=== PATIENT | female | born 1950 | race Caucasian/White ===

== ENCOUNTER 2016-11-14 05:32 | Inpatient (IN) | payer OTHER ==
[2016-10-17 11:10] VITALS: BMI 39.0
--- NOTE | 2016-10-17 11:38 | PAT Medication Instructions ---
Service Date Oct 17, 2016. Current Home Medication List Alendronate/Cholecalciferol (Fosamax+D 70MG/2800 Iu), 1 TABLET PO SATURDAY Amlodipine (Norvasc), 10 MG PO QPM Aspirin (Aspirin Ec), 81 MG PO HS Biotin (Biotin Maximum Strength), 1 TAB PO QAM Calcium/Vitamin D (Os-Jameson 500 Plus D), 1 TAB PO QAM Cholecalciferol (Vitamin D3), 1 TAB PO QAM Cyanocobalamin (Vitamin B-12 1000 Mcg), 1,000 MCG PO QAM Cyclobenzaprine Hcl (Flexeril), 5 MG PO HS Fish Oil ([place]-3), 1 CAP PO BID Ysxmjiavgab-Hldddbxuhqx-Bth C- (Glucosamine Chondroitin), 1 TAB PO BID Hydrocodone-Acetaminophen (Lortab 5-325 mg), 1 TAB PO Q6H PRN for Pain Metformin Hcl (Glucophage), 500 MG PO DNNER Multivitamin (Multivitamin), 1 TAB PO QAM Omeprazole (Prilosec), 40 MG PO QAM Pseudoephedrine Hcl (Suphedrine), 1 TAB PO Q6H PRN for Nasal Congestion Ranitidine (Zantac), 300 MG PO HS Medication Instructions For Your Scheduled Surgery Alendronate/Cholecalciferol (Fosamax+D 70MG/2800 Iu), 1 TABLET PO SATURDAY ( continue as usual) - Hold the following medications 10 days prior to surgery: Fish Oil ([place]-3), 1 CAP PO BID Kjqmhjmptjr-Qxmxflbewgs-Uhj C- (Glucosamine Chondroitin), 1 TAB PO BID Biotin (Biotin Maximum Strength), 1 TAB PO QAM - Hold the following medications 48 hours prior to surgery: Metformin Hcl (Glucophage), 500 MG PO DNNER - Hold the following medications the morning of surgery: Pseudoephedrine Hcl (Suphedrine), 1 TAB PO Q6H PRN for Nasal Congestion Multivitamin (Multivitamin), 1 TAB PO QAM Calcium/Vitamin D (Os-[place] 500 Plus D), 1 TAB PO QAM Cholecalciferol (Vitamin D3), 1 TAB PO QAM Cyanocobalamin (Vitamin B-12 1000 Mcg), 1,000 MCG PO QAM - Take the following medications the morning of surgery with a sip of water: Omeprazole (Prilosec), 40 MG PO QAM Hydrocodone-Acetaminophen (Lortab 5-325 mg), 1 TAB PO Q6H PRN for Pain (can take up to four hours prior to surgery if needed) - Take the following medications as scheduled the night before surgery: Ranitidine (Zantac), 300 MG PO HS Hydrocodone-Acetaminophen (Lortab 5-325 mg), 1 TAB PO Q6H PRN for Pain Cyclobenzaprine Hcl (Flexeril), 5 MG PO HS Amlodipine (Norvasc), 10 MG PO QPM Aspirin (Aspirin Ec), 81 MG PO HS If you have any questions please call us at [phone] or [phone] ( [place]amini) or [phone]
[2016-10-17 12:51] LABS: BASO % 0.6 %; BASO ABS # 0.03 K/uL (0-0.2); COMPLETE YES; EOS % 2.5 %; HEMATOCRIT 43.7 % (37-47); IG% 0.2 %; LYMPH % 28.2 %; LYMPH ABS # 1.47 K/uL (1.2-3.4); MEAN CELL VOLUME 93.6 fL (80-100); MEAN CORPUSCULAR HEMOGLOBIN 33.2 pg (25-34); MEAN CORPUSCULAR HGB CONC 35.5 g/dl (32-36); MEAN PLATELET VOLUME 11.2 fL (7.4-10.4); NEUT % 62.5 %; PLATELET COUNT 207 K/uL (130-400); RED BLOOD COUNT 4.67 M/uL (4.2-5.4); WHITE BLOOD COUNT 5.21 K/uL (4.8-10.8)
[2016-10-17 13:09] LABS: URINE APPEARANCE CLOUDY (CLEAR); URINE BILIRUBIN NEG (NEG); URINE COLOR YELLOW; URINE EPITHELIAL CELL AUTO >30 /lpf (0-5); URINE NITRITE POS (NEG); URINE PH 6.5 (4.5-7.5); URINE SPECIFIC GRAVITY 1.024 (1.000-1.030); UROBILINOGEN NEG (NEG)
[2016-10-17 13:12] LABS: BUN/CREATININE RATIO 20.5 (10-20); CALCIUM 9.3 mg/dl (8.5-10.1); CREATININE 0.85 mg/dl (0.60-1.20); POTASSIUM 3.8 mmol/L (3.5-5.1)
[2016-10-17 13:19] LABS: MANUAL MICROSCOPIC REQUIRED? NO; REVIEW REQ? NO
--- NOTE | 2016-11-13 12:34 | HISTORY & PHYSICAL EXAMINATION ---
DATE OF ADMISSION: 11/14/2016 HISTORY OF PRESENT ILLNESS: She presents to our office with complaint of back and left leg pain. It involves the buttock and anterior groin as well as anterior thigh. It does reproduce with walking and standing. She has an occasional right leg pain as well. She has had prior lumbar decompression and fusion several years ago by Dr. Romo. PAST MEDICAL HISTORY: The patient's medical history is significant for hypertension, diabetes, arthritis, GERD, hiatal hernia, and obesity. PAST SURGICAL HISTORY: Significant for cataract, trigger finger release, carpal tunnel release, back surgery in 2008, and partial knee replacement in 2004. ALLERGIES: INCLUDE AMOXICILLIN, PENICILLIN, LISINOPRIL, AND ZITHROMAX. MEDICATIONS: Currently include omeprazole 40 mg a day, metformin 500 mg twice a day, calcium, vitamin D, vitamin B12, Biotin, ranitidine, fish oil, and amlodipine, unknown dosage. SOCIAL HISTORY: She is . Alcohol and tobacco not listed. REVIEW OF SYSTEMS: Significant for back and left leg pain, fatigue, easy bruising, heartburn, and itchy skin. PHYSICAL EXAMINATION: VITAL SIGNS: 5 feet 4 inches, 209 pounds. HEENT: Speech appropriate. CARDIOPULMONARY: No gross abnormalities. ABDOMEN: Soft and nondistended. GENITOURINARY: Deferred. NEUROLOGIC: Cranial nerves II through XII grossly intact. MUSCULOSKELETAL: She ambulates around the room, but does have significant discomfort with prolonged standing. No strength deficits. ASSESSMENT: Lumbar stenosis, adjacent level. PLAN: At this point in time, we have discussed surgical intervention. Due to her severe stenosis of L1-L2 and L2-L3, it would require removal of instrumentation at L3 through S1, extending the fusion into the lower thoracic area and possible iliac bolts. Risks, benefits, pros and alternatives were outlined in detail. She elected to proceed with the above-mentioned surgical intervention.
[2016-11-14] VITALS (12 sets, daily range): BP systolic 97–147; BP diastolic 62–105; PULSE 66–93; TEMP 36.4–36.9; O2SAT 93–99; Ht 152.4 cm; Wt 93.6 kg
[~2016-11-14] VITALS: Ht 152.4 cm; Wt 93.6 kg
[~2016-11-14 05:32] MED LIST: AMLO-114 PO; ASPI81TA28 PO; BIOT1TAB7 PO; CALC500C70 PO; CHOL1000 PO; CYAN10004 PO; CYCL5TAB PO; FSMD/70 PO; GLC/500 PO; GLUCTAB7 PO; HYDR-4330 PO; MULT-506 PO; OMEG10007 PO; OMEP40CA PO; PSEU-170 PO; RANI300T2 PO
[2016-11-14] MEDS ORDERED: LACTATED RINGER'S 1000ML IV SCH (06:00)
[2016-11-14] MEDS ORDERED: SCOPOLAMINE 1.5 MG TDSY TD SCH (06:00)
[2016-11-14] MEDS ORDERED: CEFAZOLIN 2000 MG/60 ML D5W 60 ML IV SCH (06:00)
[2016-11-14] MEDS ORDERED: SODIUM CHLORIDE 0.9% PF 50 ML VIAL ONE (06:56)
[2016-11-14] MEDS ORDERED: FENTANYL CITRATE INJ 50 MCG/1 ML 2 ML VIAL ONE (06:56)
[2016-11-14] MEDS ORDERED: BACITRACIN 50000 UNIT VIAL ONE (06:56)
[2016-11-14] MEDS ORDERED: MIDAZOLAM HCL 1 MG/ML 2ML VIAL ONE (06:56)
[2016-11-14] MEDS ORDERED: BUPIVACAINE/EPINEPHRINE 0.5% MPF 1:200,000 30 ML VIAL ONE (06:56)
[2016-11-14] MEDS ORDERED: KETAMINE HCL INJ 50 MG/ML 10 ML VIAL ONE (06:56)
[2016-11-14] MEDS ORDERED: LIDOCAINE HCL 2% 2 ML VIAL (20MG/ML) ONE ×2 (06:57→08:32)
[2016-11-14] MEDS ORDERED: THROMBIN FOR SOLN 20000 UNIT KIT ONE (07:17)
--- NOTE | 2016-11-14 07:25 | History & Physical Bridge Note ---
H&P Re-Evaluation Bridge Note: I have examined the patient, reviewed the History & Physical and in the interval since the performance of the History & Physical I have noted the following changes of clinical significance: No changes noted
[2016-11-14] MEDS ORDERED: LACTATED RINGER'S 1000ML 1,000 ML IV PRN (07:29)
[2016-11-14] MEDS ORDERED: FENTANYL CITRATE INJ 50 MCG/1 ML 2 ML VIAL IV PRN (07:30)
[2016-11-14] MEDS ORDERED: HYDROmorphone INJ 1 MG/ML SYR IV PRN (07:30)
[2016-11-14] MEDS ORDERED: ONDANSETRON INJ 2 MG/ML 2 ML VIAL IV PRN ×2 (07:30→10:30)
--- NOTE | 2016-11-14 07:32 | History & Physical Bridge Note ---
H&P Re-Evaluation Bridge Note: I have examined the patient, reviewed the History & Physical and in the interval since the performance of the History & Physical I have noted the following changes of clinical significance: No changes noted T11-L3 decompression fusion, removal inst. L3-S1
[2016-11-14] MEDS ORDERED: CLINDAMYCIN 600 MG/54 ML D5W IV ONE (07:33)
[2016-11-14] MEDS ORDERED: NURSING VERBAL MED ORDER ONE (07:35)
[2016-11-14] MEDS ORDERED: HYDROmorphone INJ 2 MG/ML SYR/VIAL ONE (08:01)
[2016-11-14] MEDS ORDERED: ACETAMINOPHEN 1000 MG/100 ML IV IV ONE (08:21)
[2016-11-14] MEDS ORDERED: PHENYLEPHRINE HCL INJ 10 MG/ML VIAL ONE (08:32)
[2016-11-14] MEDS ORDERED: NEOSTIGMINE METHYLSULFATE 1 MG/ML 10ML VIAL ONE (08:32)
[2016-11-14] MEDS ORDERED: ROCURONIUM BROMIDE 10 MG/ML 5 ML VIAL ONE (08:32)
[2016-11-14] MEDS ORDERED: DEXAMETHASONE SOD INJ 4 MG/ML VIAL ONE (08:32)
[2016-11-14] MEDS ORDERED: ONDANSETRON INJ 2 MG/ML 2 ML VIAL ONE (08:32)
[2016-11-14] MEDS ORDERED: PROPOFOL IV EMULSION 10 MG/ML 20 ML VIAL IV ONE (08:32)
[2016-11-14] MEDS ORDERED: GLYCOPYRROLATE INJ 0.2 MG/ML VIAL ONE (08:32)
[2016-11-14] MEDS ORDERED: ALBUMIN HUMAN 5% 12.5 GM/250 ML VIAL IV ONE ×2 (09:26→10:21)
[2016-11-14] MEDS ORDERED: SODIUM CHLORIDE 0.9% 1000ML 1,000 ML IV SCH (10:29)
--- NOTE | 2016-11-14 10:29 | [facility] Post Operative Brief Note ---
Immediate Operative Summary Operative Date Nov 14, 2016. Pre-Operative Diagnosis Lumbar stenosis, adjacent level Post-Operative Diagnosis Lumbar stenosis, adjacent level Procedure(s) Performed T11-L3 Lumbar Laminectomy, Decompression, Pedicle Screw Fixation, Placement of Interbody Device, T11-L3 Posterolateral Fusion, Application of Autograft versus Allograft, Bone Morphogenetic Protein, Iliac [place] Fixation, L3-S1 Hardware Surgeon Dr. Viktor Romo Supervisor Gear Repair Surgeon(s) Tiesah Mejia PA-C Estimated Blood Loss 500mL Findings stenosis Specimens Specimen A. Explanted lumbar hardware
[2016-11-14] MEDS ORDERED: ACETAMINOPHEN 500 MG TAB PO PRN (10:30)
[2016-11-14] MEDS ORDERED: BISACODYL 10 MG SUPP PR PRN (10:30)
[2016-11-14] MEDS ORDERED: ACETAMINOPHEN IV 100 ML IV PRN (10:30)
[2016-11-14] MEDS ORDERED: SOD PHOSPHATE/SOD BIPHOSPHATE ENEMA 132 ML BTL PR PRN (10:30)
[2016-11-14] MEDS ORDERED: NALOXONE HCL 0.4 MG/1 ML VIAL/CARP IV PRN ×2 (10:30)
[2016-11-14] MEDS ORDERED: hydrOXYzine HCL 25 MG TAB PO PRN (10:30)
[2016-11-14] MEDS ORDERED: LORAZEPAM INJ 0.5 MG in SYRINGE 0.75 ML IV PRN (10:30)
[2016-11-14] MEDS ORDERED: FAMOTIDINE 20 MG TAB PO PRN (10:30)
[2016-11-14] MEDS ORDERED: FLOSEAL HEMOSTATIC MATRIX 10ML TOP ONE (10:30)
[2016-11-14] MEDS ORDERED: DO NOT ADMINISTER PNEUMOCOCCAL VACCINE PRN ×2 (10:30)
[2016-11-14] MEDS ORDERED: MAGNESIUM HYDROXIDE SUSP 30 ML UDC PO PRN (10:30)
[2016-11-14] MEDS ORDERED: PROMETHAZINE HCL INJ 12.5 MG in SODIUM CHLORIDE 0.9% 50ML 50 ML IV PRN (10:30)
[2016-11-14] MEDS ORDERED: DO NOT ADMINISTER FLU VACCINE PRN ×3 (10:30)
[2016-11-14] MEDS ORDERED: HYDROmorphone HCL 0.5MG/ML 50 ML CASSETTE IV PRN (10:30)
[2016-11-14] MEDS ORDERED: LORAZEPAM 0.5 MG TAB PO PRN (10:30)
[2016-11-14] MEDS ORDERED: PSEUDOEPHEDRINE HCL 30 MG TAB PO PRN (10:30)
[2016-11-14] MEDS ORDERED: METOCLOPRAMIDE HCL INJ 5 MG/ML 2 ML VIAL IV PRN (10:30)
[2016-11-14] MEDS ORDERED: ALUMINUM/MAGNESIUM SUSP 30 ML UDC PO PRN (10:30)
--- NOTE | 2016-11-14 10:51 | DIAGNOSTIC IMAGING REPORT ---
LUMBAR SPINE, INTRAOPERATIVE FLUOROSCOPY HISTORY: T11-S1 decompression fusion. FLUOROSCOPY TIME: 28 seconds. FINDINGS: Intraoperative fluoroscopy was provided for the lumbar spine. 6 fluoroscopic spot images were obtained. T11-S1 posterior decompression fusion with pedicle screws and rods. There are bilateral sacroiliac bolts. The hardware appears intact. IMPRESSION: Fluoroscopy provided for a T11-S1 posterior decompression and fusion. Electronically signed by: Kit Martin M.D. 11/14/2016 10:49 AM Dictated Date/Time: 11/14/2016 10:48 AM
[2016-11-14] MEDS ORDERED: HYDROmorphone HCL 0.5MG/ML 50 ML CASSETTE ONE (10:55)
[2016-11-14] MEDS ORDERED: PHARMACY GLYCEMIC MGMT CONSULT PRN (11:07)
--- NOTE | 2016-11-14 11:42 | Anesthesiology Progress Note ---
Anesthesia Post Op Note Date & Time Nov 14, 2016 at 11:42 Vital Signs Pain Intensity: 2 Vital Signs Past 12 Hours Date Time Temp Pulse Resp B/P Pulse Ox O2 Delivery O2 Flow Rate FiO2 11/14/16 11:28 36.8 101/56 11/14/16 11:25 65 16 11/14/16 11:25 65 16 99 11/14/16 11:24 99/61 11/14/16 11:20 64 11/14/16 11:20 65 16 119/62 100 11/14/16 11:20 Nasal Cannula 4 11/14/16 11:19 105/56 11/14/16 11:15 62 11/14/16 11:15 62 120/61 100 11/14/16 11:13 116/68 11/14/16 11:10 71 12 131/69 100 11/14/16 11:10 71 12 11/14/16 11:09 105/81 11/14/16 11:05 76 7 11/14/16 11:05 76 7 132/73 100 11/14/16 11:04 126/74 11/14/16 11:00 86 13 143/74 98 11/14/16 11:00 87 13 11/14/16 10:58 136/92 11/14/16 10:55 93 152/80 100 11/14/16 10:55 36.4 88 16 136/92 99 Mask 10 146/86 11/14/16 05:50 36.8 93 20 147/105 95 Room Air 132/69 Notes Mental Status: alert / awake / arousable, participated in evaluation Pt Amnestic to Procedure: Yes Nausea / Vomiting: adequately controlled Pain: adequately controlled Airway Patency, RR, SpO2: stable & adequate BP & HR: stable & adequate Hydration State: stable & adequate Anesthetic Complications: no major complications apparent Pt doing well.
--- NOTE | 2016-11-14 11:46 | OPERATIVE REPORT ---
DATE OF OPERATION: 11/14/2016 PREOPERATIVE DIAGNOSIS: Spinal stenosis L1-L2, L2-L3: POSTOPERATIVE DIAGNOSIS: Same. PROCEDURE PERFORMED: 1. Removal of instrumentation L3-L4, L4-L5, L5-S1. 2. Exploration of fusion L3-S1. 3. Lumbar decompression, medial facetectomies, foraminotomies L1-L2, L2-L3. 4. Posterior spinal fusion T10-S1. 5. Bilateral SI joint fusions. 6. Placement of posterior segmental instrumentation using Medicrea rods and screws T10-S1 including bilateral iliac bolts. 7. Placement of Infuse collagen sponge combined with Mastergraft in the posterolateral gutters and SI joints. 8. Placement of locally harvested morcellized autograft in posterior gutters. SURGEON: Dr. Viktor Romo. CHRISTMAS TREE CONTRACTOR: Due to the complex nature of the procedure, the entire surgery was performed with the assistant professor of nursing of JENNIFER Soliman. The export sales assistant, under direct supervision, was involved in the actual performance of all aspects of the surgical procedure including hemostasis, tissue retraction and incision, instrument management, patient positioning, and wound closure. ANESTHESIA: General. DISPOSITION: The patient awakened and taken to PACU in stable condition. HISTORY OF PATIENT'S PROBLEMS: This is a 66-year-old female who is well known to me that presents with above-mentioned diagnosis after failing an extensive course of nonoperative care, elected to undergo the above-mentioned procedure. Risks, benefits, pros, cons, and alternatives were outlined in detail preoperatively. PROCEDURE: The patient was met with preoperatively, the case discussed and all questions were addressed. At that point the patient was taken back to the operative suite and after undergoing successful general intubation by the department of anesthesia was placed in prone position on Sha table atop Adrian frame. All bony prominences were well padded and the eyes were inspected to ensure there was no external pressure placed upon them. At this point, the thoracolumbar spine was prepped and draped in normal sterile fashion. Sharp dissection with the assistance of Bovie cautery was performed down to and exposing the lamina and transverse processes of T10, T11, T12, L1, L2 and instrumentation at the L3, L4, L5 and S1 levels bilaterally. I then proceeded to remove the hardware bilaterally at L3, L4, L5 and S1 exploring the fusion mass noting it to be intact. We then performed a complete laminectomy of L2 and L1 in a caudal to cephalad fashion addressing severe lateral recess and foraminal stenosis. After this was complete, pedicle screws were then placed in T11, T12, L1, L2, L3, L4, S1, as well as bilateral iliac bolts. Appropriate size rods were then cut, contoured and locked into position bilaterally. After this was complete, the bilateral SI joints were burred to subcortical bleeding bone as well as the lamina and transverse processes of T10, T11, T12, L1, L2, L3 and L4. Infused collagen sponge combined with Mastergraft and locally harvested morcellized autograft was placed in the posterolateral gutters and bilateral SI joints. A 7 flat PIERCE drain was inserted. Incision was closed with 1-0 Vicryl in the fascia, 2-0 Vicryl subcutaneously, 4-0 Monocryl for final skin closure. Steri-Strips and sterile dressing placed. The patient was awakened and taken to PACU in stable condition. I attest to the content of the Intraoperative Record and any orders documented therein. Any exceptio ns are noted below.
[2016-11-14] MEDS ORDERED: GLUCOSE 10 TABS/TUBE PO PRN (12:15)
[2016-11-14] MEDS ORDERED: GLUCOSE 40% GEL 15 GM TUBE PO PRN (12:15)
[2016-11-14] MEDS ORDERED: DEXTROSE 50% 50 ML SYR IV PRN (12:15)
[2016-11-14] MEDS ORDERED: GLUCAGON FOR INJ 1 MG VIAL SQ PRN (12:15)
--- NOTE | 2016-11-14 12:33 | Pharmacy Progress Note ---
Glycemic Control Intl Consult Date of Service Nov 14, 2016. Scope Glycemic Pharmacist consulted by Dr Romo on 11/14/16 for glycemic control and to write orders per [facility] inpatient glycemic control protocol Objective Weight (Kilograms): 93.60 Accuchecks BSG (last 24hrs): Test 11/14/16 06:16 11/14/16 11:05 Bedside Glucose 140 mg/dl (70-90) 171 mg/dl (70-90) HbA1c no recent A1c Recent Pertinent Medications Outpatient Anti-diabetic Regimen: * Metformin 500mg PO daily with Dinner Risk Factors for Insulin Resistance: * Steroids * Recent Surgery * Diet Assessment & Plan ASSESSMENT: * 66yo T2DM female with unknown outpatient control of diabetes, no recent A1c reported. Will order per protocol * Pt is maintained on oral antidiabetic agents as an outpatient * Oral agents are not recommended for inpatient use d/t difficultly titrating in acute situations, drug interactions, & changing PO intake/status * ADA recommends re-initiating outpatient oral agents 1-2 days prior to discharge if/when appropriate if they were held on admission. * Recommended regimen for inpatient use is SQ Basal Bolus insulin regimen with Lantus + NovoLog * Weight based SQ basal bolus insulin dosing per [facility] calculator will be used while oral antidiabetic agents on hold. Will titrate parameters based on BSG trends * Patient received dexamethasone intra-operatively and will receive 3 doses post -operatively. * Steroids have their most profound effect on post-prandial hyperglycemia which is best controlled with NovoLog dosing per aggressive CF/CR. However, basal insulin with Lantus is sometimes warranted for RTC steroid dosing. * ADA & AACE recommend a goal blood sugar range 140-180 mg/dl for the majority of critically ill & non-critically ill patients. However, more stringent targets may be selected in individual cases. Will utilize more stringent goal of 110-140mg/dl based on patient age & comorbidities. Additionally, tighter glycemic control is warranted to facilitate wound/infection healing post- operatively. PLAN FOR INPATIENT GLYCEMIC CONTROL: * Hold outpatient oral diabetes medications * Will try to re-initiate 1-2 days prior to discharge once renal function assessed and PO intake adequate * HbA1c with AM labs * Basal insulin with LANTUS for persistent hyperglycemia * If BSG 120mg/dl or below --> do not give Lantus * If BSG 121-179mg/dl --> Give Lantus 10 units * If BSG 180mg/dl or above --> Give Lantus 15 units * Correctional Insulin with NOVOLOG per scale ACHS or Q6hrs while NPO * Goal Range: Low 110 mg/dL - High 140 mg/dL * Correction Factor: 25 mg/dL/unit * Nutritional / Prandial insulin per carb ratio of 1 unit per 8 grams CHO consumed * Please note that the plan above was derived based on current level of insulin resistance and hospital stress. These recommendations are appropriate for inpatient admission only. Plan of care upon discharge will need to be reassessed to avoid potential outpatient hypo/hyperglycemia. Thank you.
[2016-11-14] MEDS: INSULIN ASPART 100 UNITS/ML 3 ML PEN SC SCH ×3 (13:40→21:37)
[2016-11-14] MEDS: LACTATED RINGER'S 1000ML 1,000 ML IV SCH ×2 (13:43→18:25)
[2016-11-14] MEDS: CHECK SCOPOLAMINE PATCH PLACEMENT SCH (16:01)
[2016-11-14] MEDS: DEXAMETHASONE INJ 6 MG in SYRINGE 0 ML IV SCH (16:02)
[2016-11-14] MEDS: CLINDAMYCIN IV 600 MG in DEXTROSE 5% ADD-VANTAGE 50ML 50 ML IV SCH (16:02)
[2016-11-14] MEDS ORDERED: INSULIN GLARGINE SOLOSTAR 100 UNITS/ML 3 ML PEN SC SCH (16:45)
[2016-11-14] MEDS: ASPIRIN 81 MG ECTAB PO SCH (21:27)
[2016-11-14] MEDS: RANITIDINE HCL 150 MG TAB PO SCH (21:30)
[2016-11-14] MEDS: DOCUSATE SODIUM/SENNA 50/8.6MG TAB PO SCH (21:30)
[2016-11-14] MEDS: CYCLOBENZAPRINE HCL 5 MG TAB PO SCH (21:31)
[2016-11-14] MEDS: AMLODIPINE BESYLATE 5 MG TAB PO SCH (21:58)
[2016-11-15] VITALS (9 sets, daily range): BP systolic 104–134; BP diastolic 68–81; PULSE 70–79; TEMP 36.7–37.1; O2SAT 86–94
[2016-11-15] MEDS: CLINDAMYCIN IV 600 MG in DEXTROSE 5% ADD-VANTAGE 50ML 50 ML IV SCH (00:19)
[2016-11-15] MEDS: DEXAMETHASONE INJ 6 MG in SYRINGE 0 ML IV SCH ×2 (00:19→07:54)
[2016-11-15] MEDS: CHECK SCOPOLAMINE PATCH PLACEMENT SCH ×3 (00:20→17:02)
[2016-11-15] MEDS: LACTATED RINGER'S 1000ML 1,000 ML IV SCH (00:20)
[2016-11-15] MEDS ORDERED: HYDROmorphone INJ 1 MG/ML SYR IV PRN (06:00)
[2016-11-15] MEDS ORDERED: DC PCA SCH (06:00)
[2016-11-15] MEDS ORDERED: HYDROmorphone INJ 0.5 MG/0.5 ML SYR IV PRN (06:00)
[2016-11-15] MEDS ORDERED: NURSING VERBAL MED ORDER ONE (06:30)
[2016-11-15 07:08] LABS: COMPLETE YES; HEMATOCRIT 30.9 % (37-47); IG% 0.3 %; LYMPH % 7.1 %; LYMPH ABS # 0.67 K/uL (1.2-3.4); MEAN CELL VOLUME 93.4 fL (80-100); MEAN CORPUSCULAR HEMOGLOBIN 32.9 pg (25-34); MEAN CORPUSCULAR HGB CONC 35.3 g/dl (32-36); MEAN PLATELET VOLUME 10.4 fL (7.4-10.4); MONO % 2.5 %; NEUT % 90.1 %; PLATELET COUNT 175 K/uL (130-400); RED BLOOD COUNT 3.31 M/uL (4.2-5.4); WHITE BLOOD COUNT 9.49 K/uL (4.8-10.8)
[2016-11-15 07:39] LABS: CALCIUM 8.4 mg/dl (8.5-10.1); CREATININE 0.75 mg/dl (0.60-1.20); POTASSIUM 4.2 mmol/L (3.5-5.1)
[2016-11-15] MEDS ORDERED: INSULIN GLARGINE SOLOSTAR 100 UNITS/ML 3 ML PEN SC SCH (09:00)
[2016-11-15] MEDS: PANTOprazole SOD 40 MG TAB PO SCH (09:58)
[2016-11-15 10:01] LABS: ESTIMATED AVERAGE GLUCOSE 131 mg/dl; HA1C FLAG Normal (Normal)
[2016-11-15] MEDS: INSULIN ASPART 100 UNITS/ML 3 ML PEN SC SCH ×4 (10:04→20:47)
[2016-11-15] MEDS: OXYCODONE HCL IR 5 MG TAB (IMMEDIATE RELEASE) PO PRN ×4 (10:06→20:56)
[2016-11-15] MEDS ORDERED: RXC5 PO (10:56)
--- NOTE | 2016-11-15 10:57 | Discharge Instructions ---
Discharge Instructions Admission Reason for Admission: Spinal Stenosis Discharge Discharge Diagnosis / Problem: stenosis Discharge Goals Goal(s): Improve function Activity Recommendations Activity Limitations: per Instructions/Follow-up section . Instructions / Follow-Up Instructions / Follow-Up ACTIVITY RECOMMENDATIONS: SELF CARE INSTRUCTIONS AFTER THORACIC/LUMBAR FUSIONS 1. You may walk to your tolerance. It is good exercise for your legs and back. Expect some back and intermittent leg aches and pains. 2. You may perform "counter-top" level activities (make a sandwich, yesica with a project, etc.). 3. No bending or lifting of more than 10 pounds or back twisting of any nature (roll like a log when turning in bed). 4. You may ride in a car for 20-30 minutes at a time. No driving until after your first visit with your doctor. 5. Frequent changes of position and restricting sitting to 30 minutes at a time will help limit the amount of back spasms and stiffness you may experience. 6. You may discontinue the use of ambulatory aids (cane, crutches, etc.) once your strength and confidence allow. 7. You may bookbinder chief the shower and let water strike your incision when you arrive home at least once daily. Do not take a tub bath, sit in a hot tub or go into a swimming pool until after your first recheck in the office. SPECIAL CARE INSTRUCTIONS: VERY IMPORTANT TO READ AND REVIEW A. Your surgical incision has been closed with a cosmetic suture under the skin that will dissolve in about 6 weeks. In 14 days, you can use a pair of clean scissors and cut the suture that is left outside of the skin at the ends of your incision. 1. The small skin tapes can be removed 7 days after surgery if they have not fallen off by that point. 2. You may keep the wound open to air as much as possible to promote healing after post-op day number 5 unless told otherwise by your doctor. 3. If you think the wound looks like it is becoming infected (redness or worsening drainage) and/or you are experiencing fever, chill or worsening back pain and muscle spasms, contact the office so that we may evaluate you as soon as possible. B. Complications are uncommon, but please contact us if you have any signs or symptoms of: 1. wound infection (fever higher than 102.5 degrees F, redness, separation of wound, drainage, or increasing pain from the incision) 2. blood clots in legs (pain, swelling, redness and warmth in legs) 3. urinary tract infection (fever higher than 102.5 degrees F, burning upon urination or increased frequency of urination) 4. nerve problems (inability to walk on your toes or heels, numbness, loss of bowel or bladder control) 5. any other symptoms that concern you C. Please call the office at if you have any concerns or questions about your operation or recovery. D. No smoking! Smoking drastically decreases the chance of a solid fusion. E. Do not take any anti-inflammatory medications (Indocin, Advil, Motrin, Aspirin, Naprosyn, etc.) as these may inhibit the chance of a solid fusion. Tylenol is okay to take for pain. MANAGING PAIN AFTER SPINAL SURGERY 1. Narcotic medication is intended for short-term use and will be provided for surgical pain. Surgical pain usually lasts for a period of 4-6 weeks. Narcotic medication includes Percocet, Vicodin, Darvocet, Tylenol #3 or Lortab. 2. Longer-term pain is more appropriately treated with non-narcotic medication such as Tylenol ES. 3. Muscle spasm is not appropriately treated with narcotics. Muscle relaxers such as Soma, Flexeril or Skelaxin can be used along with Tylenol ES. 4. Remember that we all live with some "aches and pains". This is not unusual or uncommon after an injury or as we get older. a. Back pain is expected and may include muscle spasms for 4 to 6 weeks after surgery. The pain should gradually improve. If the pain worsens for no apparent reason, please contact the office. b. Intermittent leg pain may also be experienced and should not be concerned about unless it worsens for no apparent reason. If so, please contact the office. 5. We will provide appropriate medication within the normal guidelines of their prescribed use. We will also be very cautious and aware of potential abuse and extended duration of patients' medication needs. a. Pain medications are for your comfort and to assist with sleep and rest so that the tissue can heal. They are not provided in order to return to normal activity and should not be used through the day. To do so or worsening pain at night can result from ongoing tissue damage and development of tolerance to the prescribed medicine. 6. Please allow 2-3 days to process refills. Prescriptions will not be mailed but must be picked up at the office. FOLLOW UP VISIT: Keep your scheduled follow-up appointment. Any questions, please call the office at . Current Hospital Diet Patient's current hospital diet: Diabetes Type 2 Diet Discharge Diet Recommended Diet: Regular Diet Procedures Procedures Performed: T11-L3 Lumbar Laminectomy, Decompression, Pedicle Screw Fixation, Placement of Interbody Device, T11-L3 Posterolateral Fusion, Application of Autograft versus Allograft, Bone Morphogenetic Protein, Iliac [place] Fixation, L3-S1 Hardware Pending Studies Studies pending at discharge: no Laboratory Results Hemoglobin A1c Test 11/15/16 06:40 Range/Units Estimated Average Glucose 131 mg/dl Hemoglobin A1c 6.2 H 4.5-5.6 % Medical Emergencies . Who to Call and When: Medical Emergencies: If at any time you feel your situation is an emergency, please call 911 immediately. . Non-Emergent Contact Non-Emergency issues call your: Primary Care Provider . "Provider Documentation" section prepared by Viktor Romo. VTE Core Measure Inpt VTE Proph given/why not?: Jessi Loredo, [facility]
--- NOTE | 2016-11-15 10:59 | PROGRESS NOTE ---
DATE: 11/15/2016 SUBJECTIVE: Postop day 1. Back pain controlled. Leg pain improved. Vital signs stable. T max 37.1. PIERCE drained 115 mL. Hematocrit this a.m. is 30.9. OBJECTIVE: On exam, the patient is in chair at bedside. Has good strength to testing. Appears comfortable. ASSESSMENT: Status post lumbar decompression and fusion. PLAN: At this time, continue physical therapy and monitor PIERCE output, anticipate home this weekend.
--- NOTE | 2016-11-15 12:44 | Pharmacy Progress Note ---
Glycemic Control: Progress Nt Date of Service Nov 15, 2016. Scope Glycemic Pharmacist consulted for glycemic control and to write orders per [facility] inpatient glycemic control protocol. Objective Accuchecks BSG (last 24hrs): Test 11/14/16 17:04 11/14/16 20:48 11/15/16 06:40 11/15/16 08:17 Bedside Glucose 199 mg/dl (70-90) 182 mg/dl (70-90) 170 mg/dl (70-90) Random Glucose 172 mg/dl (70-99) Laboratory Data (last 24hrs) Test 11/15/16 06:40 Anion Gap 11.0 mmol/L BUN/Creatinine Ratio 16.0 Blood Urea Nitrogen 12 mg/dl Creatinine 0.75 mg/dl Hemoglobin A1c 6.2 % Potassium Level 4.2 mmol/L Sodium Level 141 mmol/L White Blood Count 9.49 K/uL Red Blood Count 3.31 M/uL Hemoglobin 10.9 g/dL Hematocrit 30.9 % Mean Corpuscular Volume 93.4 fL Mean Corpuscular Hemoglobin 32.9 pg Mean Corpuscular Hemoglobin Concent 35.3 g/dl Platelet Count 175 K/uL Mean Platelet Volume 10.4 fL Neutrophils (%) (Auto) 90.1 % Lymphocytes (%) (Auto) 7.1 % Monocytes (%) (Auto) 2.5 % Eosinophils (%) (Auto) 0.0 % Basophils (%) (Auto) 0.0 % Neutrophils # (Auto) 8.55 K/uL Lymphocytes # (Auto) 0.67 K/uL Monocytes # (Auto) 0.24 K/uL Eosinophils # (Auto) 0.00 K/uL Basophils # (Auto) 0.00 K/uL HbA1c: Test 11/15/16 06:40 Hemoglobin A1c 6.2 % (4.5-5.6) H Recent Pertinent Medications The patient is currently receiving: * Basal insulin: Lantus every 12 hours based on BSG (range 0-15 units) * Correctional Insulin: Novolog Correction per scale ACHS Goal Range: Low 110 mg/dL - High 140 mg/dL Correction Factor: 25 mg/dL/unit * Prandial insulin: Per carb ratio of 1 unit per 8 grams CHO consumed * Oral Agents: On hold Outpatient Anti-diabetic Regimen: * Metformin 500mg PO daily with Dinner Risk Factors for Insulin Resistance: * Steroids * Recent Surgery * Diet Assessment & Plan ASSESSMENT: * ADA & AACE recommend a goal blood sugar range 140-180 mg/dl for the majority of critically ill & non-critically ill patients. However, more stringent targets may be selected in individual cases. 11/14/16 * 66yo T2DM female with unknown outpatient control of diabetes, no recent A1c reported. Will order per protocol * Pt is maintained on oral antidiabetic agents as an outpatient * Oral agents are not recommended for inpatient use d/t difficultly titrating in acute situations, drug interactions, & changing PO intake/status * ADA recommends re-initiating outpatient oral agents 1-2 days prior to discharge if/when appropriate if they were held on admission. * Recommended regimen for inpatient use is SQ Basal Bolus insulin regimen with Lantus + NovoLog * Weight based SQ basal bolus insulin dosing per [facility] calculator will be used while oral antidiabetic agents on hold. Will titrate parameters based on BSG trends * Patient received dexamethasone intra-operatively and will receive 3 doses post -operatively. * Steroids have their most profound effect on post-prandial hyperglycemia which is best controlled with NovoLog dosing per aggressive CF/CR. However, basal insulin with Lantus is sometimes warranted for RTC steroid dosing. * ADA & AACE recommend a goal blood sugar range 140-180 mg/dl for the majority of critically ill & non-critically ill patients. However, more stringent targets may be selected in individual cases. Will utilize more stringent goal of 110-140mg/dl based on patient age & comorbidities. Additionally, tighter glycemic control is warranted to facilitate wound/infection healing post- operatively. 11/15/16 * HbA1c 6/2% indicating good outpatient control on oral agents alone * Will give one additional low dose of Lantus this AM - none needed this evening * At most, will give additional one-time dose 2 AM * Last dose of dexamethasone was this AM - would expect effects to persist for at least 24 hours * SCr at baseline and patient tolerating diet (57 g CHO at dinner yesterday and 47 g CHO at breakfast today). OK to resume metformin starting this evening * Will discontinue carb ratio starting tomorrow AM as metformin will be restarted today and steroid effects may be dissipating at that time * Will tighten correction factor starting tomorrow AM as this is potentially the only insulin the patient will receive PLAN FOR INPATIENT GLYCEMIC CONTROL: * Resume outpatient oral diabetes medication - metformin 500 mg po with dinner * Adjust basal insulin with LANTUS 5 units SQ x1 this AM then d/c for now ( potentially one additional dose tomorrow AM) * Correctional Insulin with NOVOLOG per scale ACHS or Q6hrs while NPO * Goal Range: Low 110 mg/dL - High 140 mg/dL * Correction Factor: 25 mg/dL/unit then tighten to 20 mg/dL/unit tomorrow AM * Nutritional / Prandial insulin per carb ratio of 1 unit per 8 grams CHO consumed then eliminate tomorrow AM * Please note that the plan above was derived based on current level of insulin resistance and hospital stress. These recommendations are appropriate for inpatient admission only. Plan of care upon discharge will need to be reassessed to avoid potential outpatient hypo/hyperglycemia. Thank you.
--- NOTE | 2016-11-15 13:37 | Anesthesiology Progress Note ---
Anesthesia Post Op Note Date & Time Nov 15, 2016 at 13:36 Vital Signs Vital Signs Past 12 Hours Date Time Temp Pulse Resp B/P Pulse Ox O2 Delivery O2 Flow Rate FiO2 11/15/16 11:15 36.7 79 16 134/75 94 Room Air 11/15/16 11:13 94 Room Air 11/15/16 07:38 37.1 76 16 104/68 94 Nasal Cannula 4.0 11/15/16 07:35 Room Air 11/15/16 06:12 93 Nasal Cannula 3.0 11/15/16 06:11 89 Nasal Cannula 2.0 11/15/16 06:10 86 Room Air 11/15/16 03:02 36.9 77 16 104/68 93 Nasal Cannula 3.0 Notes Mental Status: alert / awake / arousable, participated in evaluation Pt Amnestic to Procedure: Yes Nausea / Vomiting: adequately controlled Pain: adequately controlled Airway Patency, RR, SpO2: stable & adequate BP & HR: stable & adequate Hydration State: stable & adequate Anesthetic Complications: no major complications apparent
[2016-11-15] MEDS: METFORMIN HCL 500 MG TAB PO SCH (18:11)
[2016-11-15] MEDS: CYCLOBENZAPRINE HCL 5 MG TAB PO SCH (20:49)
[2016-11-15] MEDS: DOCUSATE SODIUM/SENNA 50/8.6MG TAB PO SCH (20:49)
[2016-11-15] MEDS: ASPIRIN 81 MG ECTAB PO SCH (20:49)
[2016-11-15] MEDS: RANITIDINE HCL 150 MG TAB PO SCH (20:49)
[2016-11-15] MEDS: AMLODIPINE BESYLATE 5 MG TAB PO SCH (20:50)
[2016-11-16] MEDS: POLYETHYLENE (MIRALAX) 17 GM PACK PO SCH ×3 (05:17→17:43)
[2016-11-16] MEDS: OXYCODONE HCL IR 5 MG TAB (IMMEDIATE RELEASE) PO PRN ×4 (05:22→21:27)
[2016-11-16 06:24] VITALS: BP 114/70; PULSE 72; TEMP 36.9; O2SAT 91
[2016-11-16] MEDS: CHECK SCOPOLAMINE PATCH PLACEMENT SCH ×4 (07:26→19:46)
[2016-11-16] MEDS: PANTOprazole SOD 40 MG TAB PO SCH (07:27)
[2016-11-16] MEDS: INSULIN ASPART 100 UNITS/ML 3 ML PEN SC SCH ×4 (07:28→21:31)
[2016-11-16] MEDS ORDERED: INSULIN GLARGINE SOLOSTAR 100 UNITS/ML 3 ML PEN SC SCH (09:00)
[2016-11-16 15:35] VITALS: BP 156/85; PULSE 78; TEMP 37.1; O2SAT 92
--- NOTE | 2016-11-16 17:26 | PROGRESS NOTE ---
DATE: 11/16/2016 SUBJECTIVE: She is doing quite well. Back pain improved. Leg pain improved. Vital signs stable. T max 37.1. PIERCE drained 185 mL today. Hematocrit stable at 30.9. OBJECTIVE: On exam, the patient is in chair at bedside. Has good strength to testing. Appears comfortable. ASSESSMENT: Status post multilevel lumbar decompression and fusion. PLAN: At this time, will continue with physical therapy, considering possible discharge home this weekend.
[2016-11-16] MEDS: METFORMIN HCL 500 MG TAB PO SCH (17:43)
[2016-11-16 21:22] VITALS: BP 138/78; PULSE 86
[2016-11-16] MEDS: DOCUSATE SODIUM/SENNA 50/8.6MG TAB PO SCH (21:24)
[2016-11-16] MEDS: AMLODIPINE BESYLATE 5 MG TAB PO SCH (21:24)
[2016-11-16] MEDS: ASPIRIN 81 MG ECTAB PO SCH (21:24)
[2016-11-16] MEDS: RANITIDINE HCL 150 MG TAB PO SCH (21:24)
[2016-11-16] MEDS: CYCLOBENZAPRINE HCL 5 MG TAB PO SCH (21:25)
[2016-11-16 23:50] VITALS: BP 121/66; PULSE 81; TEMP 37.4; O2SAT 93
[2016-11-17] MEDS: POLYETHYLENE (MIRALAX) 17 GM PACK PO SCH ×3 (00:35→12:00)
[2016-11-17] MEDS: OXYCODONE HCL IR 5 MG TAB (IMMEDIATE RELEASE) PO PRN ×2 (05:54→11:07)
[2016-11-17 07:34] VITALS: BP 113/71; PULSE 85; TEMP 36.8; O2SAT 92
[2016-11-17] MEDS: PANTOprazole SOD 40 MG TAB PO SCH (08:17)
[2016-11-17] MEDS: INSULIN ASPART 100 UNITS/ML 3 ML PEN SC SCH ×2 (08:18→12:00)
--- NOTE | 2016-11-17 10:26 | DISCHARGE SUMMARY ---
DATE OF DISCHARGE: 11/17/2016. PRINCIPAL DIAGNOSIS: Spinal stenosis. HOSPITAL COURSE FOLLOWS: On 11/14/2016, the patient underwent revision decompression and fusion, tolerated this well and taken to the orthopedic floor postoperatively. Postop day #1, she was up and ambulatory, progressed to postop day #2. Subsequently on postop day #3, pain was well controlled and PIERCE drain decreasing appropriately, subsequently discharged home. Discharge orders and instructions can be found on the chart for further review.
[2016-11-17 12:01] VITALS: BP 113/71; PULSE 85; TEMP 36.8; O2SAT 92
[2017-05-17] MEDS ORDERED: BIOTCAP2 PO (09:17)
[2017-05-17] MEDS ORDERED: FSMD/70 PO (09:19)
[2017-05-17] MEDS ORDERED: ANTI ACID PO (09:20)
== END 2016-11-17 14:10 | disposition home or self-care (01) | DRG 457 ==
LOC: ENRESERVTM → ENRESERVDT → C.ACU 05:32 → C.3E 10:33
PROVIDERS: ADMIT Orthopaedic Surgery Orthopaedic Surgery of the Spine; ATTEND Orthopaedic Surgery Orthopaedic Surgery of the Spine
PROC: 0RG7071 Fusion of 2 to 7 Thoracic Vertebral Joints with Autologous Tissue Substitute, Posterior Approach, Posterior Column, Open Approach (ICD-10-PCS; principal; 2016-11-14 07:30)
PROC: 0SG807Z Fusion of Left Sacroiliac Joint with Autologous Tissue Substitute, Open Approach (ICD-10-PCS; principal; 2016-11-14 07:30)
PROC: 0SG70KZ Fusion of Right Sacroiliac Joint with Nonautologous Tissue Substitute, Open Approach (ICD-10-PCS; principal; 2016-11-14 07:30)
PROC: 0SG1071 Fusion of 2 or more Lumbar Vertebral Joints with Autologous Tissue Substitute, Posterior Approach, Posterior Column, Open Approach (ICD-10-PCS; principal; 2016-11-14 07:30)
PROC: 0SG3071 Fusion of Lumbosacral Joint with Autologous Tissue Substitute, Posterior Approach, Posterior Column, Open Approach (ICD-10-PCS; principal; 2016-11-14 07:30)
PROC: 0RGA071 Fusion of Thoracolumbar Vertebral Joint with Autologous Tissue Substitute, Posterior Approach, Posterior Column, Open Approach (ICD-10-PCS; principal; 2016-11-14 07:30)
PROC: 0SG804Z Fusion of Left Sacroiliac Joint with Internal Fixation Device, Open Approach (ICD-10-PCS; principal; 2016-11-14 07:30)
PROC: 0SG707Z Fusion of Right Sacroiliac Joint with Autologous Tissue Substitute, Open Approach (ICD-10-PCS; principal; 2016-11-14 07:30)
PROC: 0SG80KZ Fusion of Left Sacroiliac Joint with Nonautologous Tissue Substitute, Open Approach (ICD-10-PCS; principal; 2016-11-14 07:30)
PROC: 0SG704Z Fusion of Right Sacroiliac Joint with Internal Fixation Device, Open Approach (ICD-10-PCS; principal; 2016-11-14 07:30)
PROC: 3E0U0GB Introduction of Recombinant Bone Morphogenetic Protein into Joints, Open Approach (ICD-10-PCS; principal; 2016-11-14 07:30)
DX: M48.06 Spinal stenosis, lumbar region (principal); Z68.41 Body mass index [BMI] 40.0-44.9, adult; I10 Essential (primary) hypertension; E11.9 Type 2 diabetes mellitus without complications; K21.9 Gastro-esophageal reflux disease without esophagitis; M19.90 Unspecified osteoarthritis, unspecified site; E66.9 Obesity, unspecified; Z96.659 Presence of unspecified artificial knee joint; Z79.82 Long term (current) use of aspirin; Z79.83 Long term (current) use of bisphosphonates; Z79.84 Long term (current) use of oral hypoglycemic drugs; Z79.891 Long term (current) use of opiate analgesic; Z79.899 Other long term (current) drug therapy

== ENCOUNTER 2017-06-17 05:16 | Inpatient (IN) | payer OTHER ==
[2017-05-17 09:21] VITALS: BMI 39.0
--- NOTE | 2017-05-17 09:54 | PAT Medication Instructions ---
Service Date May 17, 2017. Current Home Medication List Alendronate/Cholecalciferol (Fosamax+D 70MG/2800 Iu), 1 TABLET PO WK Amlodipine (Norvasc), 10 MG PO QPM Biotin (Biotin 5000), 5,000 MCG PO QAM Calcium/Vitamin D (Os-Jameson 500 Plus D), 1 TAB PO BID Cholecalciferol (Vitamin D3), 1 TAB PO QAM Cyanocobalamin (Vitamin B-12 1000 Mcg), 1,000 MCG PO QAM Cyclobenzaprine Hcl (Flexeril), 5 MG PO HS Fish Oil (Milton-3), 1 CAP PO BID Ykwlblfklkf-Xxinxtgbrqs-Xwe C- (Glucosamine Chondroitin), 1 TAB PO BID Hydrocodone-Acetaminophen (Lortab 5-325 mg), 1 TAB PO Q6H PRN for Pain Metformin Hcl (Glucophage), 500 MG PO DNNER Multivitamin (Multivitamin), 1 TAB PO QAM Omeprazole (Prilosec), 40 MG PO QAM Pseudoephedrine Hcl (Suphedrine), 1 TAB PO Q6H PRN for Nasal Congestion Ranitidine (Zantac), 300 MG PO HS [Anti Acid Chew], 1 TAB PO PRN Medication Instructions For Your Scheduled Surgery Alendronate/Cholecalciferol (Fosamax+D 70MG/2800 Iu), 1 TABLET PO WK (continue as directed) - Hold the following medications 2 weeks prior to surgery: Fish Oil (Milton-3), 1 CAP PO BID Uoysaxszzel-Mifqvqnrktu-Lcd C- (Glucosamine Chondroitin), 1 TAB PO BID - Hold the following medications 48 hours prior to surgery: Metformin Hcl (Glucophage), 500 MG PO DNNER - Hold the following medications the morning of surgery: [Anti Acid Chew], 1 TAB PO PRN Pseudoephedrine Hcl (Suphedrine), 1 TAB PO Q6H PRN for Nasal Congestion Multivitamin (Multivitamin), 1 TAB PO QAM Calcium/Vitamin D (Os-Jameson 500 Plus D), 1 TAB PO BID Cholecalciferol (Vitamin D3), 1 TAB PO QAM Cyanocobalamin (Vitamin B-12 1000 Mcg), 1,000 MCG PO QAM Biotin (Biotin 5000), 5,000 MCG PO QAM - Take the following medications the morning of surgery with a sip of water: Hydrocodone-Acetaminophen (Lortab 5-325 mg), 1 TAB PO Q6H PRN for Pain (okay to take up to 4 hours prior to surgery if needed) Omeprazole (Prilosec), 40 MG PO QAM - Take the following medications as scheduled the night before surgery: [Anti Acid Chew], 1 TAB PO PRN Ranitidine (Zantac), 300 MG PO HS Pseudoephedrine Hcl (Suphedrine), 1 TAB PO Q6H PRN for Nasal Congestion (if needed) Hydrocodone-Acetaminophen (Lortab 5-325 mg), 1 TAB PO Q6H PRN for Pain (if needed) Cyclobenzaprine Hcl (Flexeril), 5 MG PO HS Calcium/Vitamin D (Os-Jameson 500 Plus D), 1 TAB PO BID Amlodipine (Norvasc), 10 MG PO QPM If you have any questions please call us at [phone] or [phone] or [phone]
--- NOTE | 2017-05-17 10:40 | DIAGNOSTIC IMAGING REPORT ---
CHEST 2 VIEWS ROUTINE HISTORY: Preop. COMPARISON: Chest 06/07/2009. FINDINGS: Posterior fusion hardware within the lower thoracic/lumbar spine. The heart is normal in size. No pleural effusions. No pneumothorax. Mild diffuse interstitial thickening which is likely chronic. No evidence for pulmonary edema. No focal lung consolidations. IMPRESSION: Mild diffuse interstitial thickening which is likely chronic. No acute process within the chest. Electronically signed by: Kit Martin M.D. 05/17/2017 10:39 AM Dictated Date/Time: 05/17/2017 10:38 AM
[2017-05-17 10:58] LABS: BASO % 0.6 %; BASO ABS # 0.03 K/uL (0-0.2); COMPLETE YES; EOS % 2.9 %; HEMATOCRIT 43.8 % (37-47); IG% 0.2 %; LYMPH % 31.7 %; LYMPH ABS # 1.53 K/uL (1.2-3.4); MEAN CELL VOLUME 94.4 fL (80-100); MEAN CORPUSCULAR HGB CONC 32.9 g/dl (32-36); MEAN PLATELET VOLUME 11.1 fL (7.4-10.4); MONO % 4.8 %; NEUT % 59.8 %; PLATELET COUNT 239 K/uL (130-400); RED BLOOD COUNT 4.64 M/uL (4.2-5.4); WHITE BLOOD COUNT 4.83 K/uL (4.8-10.8)
[2017-05-17 11:03] LABS: MANUAL MICROSCOPIC REQUIRED? NO; REVIEW REQ? NO; URINE APPEARANCE CLEAR (CLEAR); URINE BILIRUBIN NEG (NEG); URINE COLOR YELLOW; URINE EPITHELIAL CELL AUTO >30 /lpf (0-5); URINE NITRITE NEG (NEG); URINE SPECIFIC GRAVITY 1.017 (1.000-1.030); UROBILINOGEN NEG (NEG); ZZUR CULT IF INDIC CLEAN CATCH YES
[2017-05-17 11:11] LABS: INR 0.9 (0.9-1.1); PARTIAL THROMBOPLASTIN RATIO 0.9; PROTHROMBIN TIME (PATIENT) 9.9 SECONDS (9.0-12.0)
[2017-05-17 12:08] LABS: BUN/CREATININE RATIO 17.8 (10-20); CALCIUM 9.2 mg/dl (8.5-10.1); CREATININE 0.86 mg/dl (0.60-1.20)
[2017-05-17 12:35] LABS: ESTIMATED AVERAGE GLUCOSE 140 mg/dl; HA1C FLAG Normal (Normal)
--- NOTE | 2017-06-16 15:28 | HISTORY & PHYSICAL EXAMINATION ---
DATE OF ADMISSION: 06/17/2017 CHIEF COMPLAINT: Chronic left hip pain. HISTORY OF PRESENT ILLNESS: This is a 67-year-old female patient of Dr. Dickey, complaining of chronic left hip pain, longstanding, now progressively getting worse. The patient has failed conservative treatment. She has increased pain with weightbearing activities and her pain does interfere with her activities of daily living. PAST MEDICAL HISTORY: Hypertension, diabetes mellitus, osteoarthritis, spine problems, sciatica, acid reflux, hiatal hernia, obesity. SOCIAL HISTORY: The patient is a lifelong smoker but quit 15 years ago. She is a nonalcohol user. No illicit drugs. FAMILY HISTORY: Noncontributory. REVIEW OF SYSTEMS: The patient complains of chronic left hip pain. Otherwise, denies any shortness of breath, chest pain, nausea, vomiting or any other joint complaints. PAST SURGICAL HISTORY: Includes back surgery, carpal tunnel surgery, again partial knee replacement, trigger finger release and tubal ligation. MEDICATIONS: Omeprazole 20 mg daily, metformin 500 mg 1 tablet with evening meal, amlodipine 10 mg daily, alendronate 70 mg 1 tablet every week, calcium 600 plus D daily, vitamin D3 1000 units daily, omega-3 350-400 mg daily, vitamin B12 daily, cyclobenzaprine 5 mg daily, multivitamin daily, valium 5 mg just p.r.n. before imaging, Mobic 15 daily. ALLERGIES: INCLUDE PENICILLIN, ZITHROMAX AND LISINOPRIL. PHYSICAL EXAMINATION: GENERAL: Well-developed, well-nourished 67-year-old female in no acute distress. She is alert and oriented x3 and pleasant. HEENT: Normocephalic, atraumatic. Extraocular muscles are intact. Pupils are equal and reactive to light. HEART: Regular rate and rhythm, no murmurs appreciated. LUNGS: Clear. ABDOMEN: Soft and nontender, bowel sounds present. EXTREMITIES: Left hip reveals a mild hip contracture. She has pain with passive internal and external rotation. She has pain in her hip and groin with internal and external rotation and logrolling. She has 5/5 strength. NEUROLOGIC: Neurovascularly, she is intact in her left lower extremity. DIAGNOSES: Left hip end-stage osteoarthritis, hypertension, diabetes mellitus, osteoarthritis, spine problems, sciatica, acid reflux, hiatal hernia, obesity. PLAN: The patient was advised of her diagnosis. Indications, risks, benefits, and postop course have all been reviewed. The patient wishes to proceed with a left total hip arthroplasty. Necessary consent forms, preoperative testing and clearances will be obtained. CATRACHITA
[2017-06-17] VITALS (11 sets, daily range): BP systolic 94–173; BP diastolic 60–85; PULSE 69–89; TEMP 36.3–36.9; O2SAT 93–98; Ht 152.4 cm; Wt 92.0 kg
[~2017-06-17] VITALS: Ht 152.4 cm; Wt 92.0 kg
[~2017-06-17 05:16] MED LIST changes: +ANTI ACID PO; -ASPI81TA28 PO; -BIOT1TAB7 PO; +BIOTCAP2 PO
[2017-06-17] MEDS ORDERED: CeleBREX 200 MG CAP PO SCH (06:00)
[2017-06-17] MEDS ORDERED: ROPIVACAINE 5MG/ML 30 ML 150 MG, BUPIVACAINE/EPINEPHR 0.5% MPF 30 ML, KETOROLAC TROMETH... INFIL SCH ×6 (06:00)
[2017-06-17] MEDS ORDERED: LACTATED RINGER'S 1000ML 1,000 ML IV SCH ×2 (06:00)
[2017-06-17] MEDS ORDERED: LACTATED RINGER'S 1000ML 500 ML IV ONE (06:00)
[2017-06-17] MEDS: VANCOMYCIN INJ 1,400 MG in SODIUM CHLORIDE 0.9% 500ML 500 ML IV SCH ×2 (06:18→06:20)
[2017-06-17] MEDS: TRANEXAMIC ACID INJ 1,000 MG in SODIUM CHLORIDE 0.9% 100ML 100 ML IV SCH ×2 (06:30→06:31)
[2017-06-17] MEDS ORDERED: BUPIVACAINE 0.5 % 5 MG/1 ML PF 10ML VIAL ONE (06:36)
[2017-06-17] MEDS ORDERED: ORTHO JOINT ANESTHETIC ONE (06:40)
[2017-06-17] MEDS ORDERED: BACITRACIN 50000 UNIT VIAL ONE (06:40)
[2017-06-17] MEDS ORDERED: POVIDONE-IODINE OP SOLN 30 ML BTL ONE (06:40)
[2017-06-17] MEDS ORDERED: MIDAZOLAM HCL 1 MG/ML 2ML VIAL ONE (06:41)
[2017-06-17] MEDS ORDERED: FENTANYL CITRATE INJ 50 MCG/1 ML 2 ML VIAL ONE (06:41)
[2017-06-17] MEDS ORDERED: LIDOCAINE HCL 2% 2 ML VIAL (20MG/ML) ONE (07:36)
[2017-06-17] MEDS ORDERED: PHENYLEPHRINE 100MCG/ML 5ML SYR ONE (07:36)
[2017-06-17] MEDS ORDERED: PROPOFOL IV EMULSION 10 MG/ML 20 ML VIAL IV ONE ×2 (07:36→08:57)
[2017-06-17] MEDS ORDERED: EpHEDrine SULFATE 50MG/5ML SYR ONE (08:35)
[2017-06-17] MEDS ORDERED: MEPERIDINE HCL 25 MG/ML CARP IV PRN (09:30)
[2017-06-17] MEDS ORDERED: EpHEDrine SULFATE INJ 50 MG/ML AMP IV PRN (09:30)
[2017-06-17] MEDS ORDERED: ONDANSETRON INJ 2 MG/ML 2 ML VIAL IV PRN (09:30)
[2017-06-17] MEDS ORDERED: LABETALOL HCL IV 5 MG/ML 20ML IV PRN (09:30)
[2017-06-17] MEDS ORDERED: ATROPINE SULFATE 0.1 MG/ML 5ML SYR IV PRN (09:30)
--- NOTE | 2017-06-17 09:41 | [facility] Post Operative Brief Note ---
Immediate Operative Summary Operative Date Jun 17, 2017. Pre-Operative Diagnosis Left Hip End-Stage Osteoarthritis Post-Operative Diagnosis Left Hip End-Stage Osteoarthritis,chronic abductor tear Procedure(s) Performed Left Total Hip Arthroplasty--Uncemented with Repair of Chronic Abductor Tear Surgeon Dr. Merchant Sand Sifter Surgeon(s) JENNIFER Mccoy Estimated Blood Loss 100 ml Findings as above Specimens A. Left Femoral Head Drains 2 hemovac Complication(s) None Disposition Recovery Room / PACU
[2017-06-17] MEDS ORDERED: MoRPHine SULFATE 4 MG/ML 1 ML CARP\\VIAL IV PRN (10:00)
[2017-06-17] MEDS ORDERED: MAGNESIUM HYDROXIDE SUSP 30 ML UDC PO PRN (10:00)
[2017-06-17] MEDS ORDERED: MoRPHine SULFATE 2 MG/ML CARP IV PRN (10:00)
[2017-06-17] MEDS ORDERED: BISACODYL 10 MG SUPP PR PRN (10:00)
[2017-06-17] MEDS ORDERED: ZOLPIDEM TARTRATE 5 MG TAB PO PRN (10:00)
[2017-06-17] MEDS ORDERED: ALUMINUM/MAGNESIUM/SIMETH (MAALOX MAX) 30 ML UDC PO PRN (10:00)
[2017-06-17] MEDS: FENTANYL CITRATE INJ 50 MCG/1 ML 2 ML VIAL IV PRN ×2 (10:31→10:38)
[2017-06-17] MEDS: HYDROmorphone INJ 1 MG/ML SYR IV PRN ×2 (10:49→10:55)
--- NOTE | 2017-06-17 11:32 | DIAGNOSTIC IMAGING REPORT ---
AP PELVIS AND LEFT HIP 2 VIEWS CLINICAL HISTORY: Postop hip arthroplasty COMPARISON STUDY: No previous studies for comparison. FINDINGS: There are postsurgical changes of total left hip arthroplasty. Acetabular and femoral components appear well seated. Overlying skin jaden and surgical drains are evident. There is no dislocation. There are mild to moderate osteoarthritic changes within the right hip. The superior aspect of the iliac crests are not visualized. There are postsurgical changes present with bilateral sacral bolts. IMPRESSION: Postsurgical changes of a total left hip arthroplasty. Electronically signed by: Sae Nevarez M.D. 06/17/2017 11:31 AM Dictated Date/Time: 06/17/2017 10:28 AM
[2017-06-17] MEDS: SODIUM CHLORIDE 0.9% 1000ML 1,000 ML IV SCH ×2 (11:55→21:17)
--- NOTE | 2017-06-17 12:02 | Anesthesiology Progress Note ---
Anesthesia Post Op Note Date & Time Jun 17, 2017 at 12:02 Vital Signs Pain Intensity: 0.0 Vital Signs Past 12 Hours Date Time Temp Pulse Resp B/P (MAP) Pulse Ox O2 Delivery O2 Flow Rate FiO2 06/17/17 12:00 69 18 130/69 (89) 98 Nasal Cannula 2.0 06/17/17 11:45 95 Nasal Cannula 2.0 06/17/17 11:35 36.4 72 18 94/60 (71) 95 Nasal Cannula 2.0 06/17/17 11:20 70 16 112/55 96 Nasal Cannula 2 06/17/17 11:05 36.4 72 17 108/57 95 Nasal Cannula 2 06/17/17 10:55 69 15 117/65 98 Nasal Cannula 2 06/17/17 10:45 70 15 118/62 98 Nasal Cannula 2 06/17/17 10:35 68 14 128/63 98 Nasal Cannula 2 06/17/17 10:25 70 15 127/62 99 Nasal Cannula 2 06/17/17 10:15 72 19 106/59 97 Nasal Cannula 2 06/17/17 10:05 76 19 106/64 92 Nasal Cannula 2 06/17/17 09:55 36.6 80 16 106/52 95 Oxymask 10 06/17/17 05:51 36.5 79 20 173/85 93 Room Air Notes Mental Status: alert / awake / arousable, participated in evaluation Pt Amnestic to Procedure: Yes Nausea / Vomiting: adequately controlled Pain: adequately controlled Airway Patency, RR, SpO2: stable & adequate BP & HR: stable & adequate Hydration State: stable & adequate Neuraxial Anesthesia: was administered, sensory block is resolving Anesthetic Complications: no major complications apparent
--- NOTE | 2017-06-17 12:48 | Medical Consult ---
Consultation Date of Consultation: Jun 17, 2017. Attending Physician: Guido Merchant M.D. Reason for Consultation: post-op medical management History of Present Illness Mrs. Tidwell is a 67 yo F with severe OA of the left hip who presented to the hospital today for an elective L hip arthroplasty. She is recovering post- operatively very well after having spinal anesthesia. She denies any chest pain , shortness of breath, pain, nausea, vomiting, recent diarrhea, constipation, UTI symptoms, headache, fevers or chills. She is asymptomatic at this time. Full H&P was performed below. Past Medical/Surgical History Medical Problems: (1) Acid reflux Status: Chronic (2) Diabetes mellitus Status: Chronic (3) Hiatal hernia Status: Chronic (4) HTN (hypertension) Status: Chronic (5) Obesity (BMI 30-39.9) Status: Chronic (6) Osteoarthritis Status: Chronic (7) Osteoporosis Status: Chronic Surgical Problems: (1) Previous back surgery Status: Chronic (2) S/P carpal tunnel release Status: Chronic (3) S/P trigger finger release Status: Chronic (4) S/P tubal ligation Status: Chronic (5) Status post left partial knee replacement Status: Chronic Family History FH: HTN (hypertension) FATHER FH: diabetes mellitus MOTHER Social History Smoking Status: Former Smoker (10 pack years) Smokeless Tobacco Use: No Alcohol Use: none Drug Use: none Marital Status: Housing Status: lives with significant other Occupation Status: retired Allergies Coded Allergies: Lisinopril (Verified Allergy, Mild, COUGH, 05/17/17) Cephalexin (Verified Allergy, Unknown, RASH, 05/17/17) Penicillins (Verified Allergy, Unknown, RASH, 05/17/17) Azithromycin (Verified Adverse Reaction, Unknown, DIARRHEA, STOMACH CRAMPS , 06/17/17) Home Medications Active Reported Fosamax+D 70MG/2800 Iu (Alendronate Sodium/Vitamin D3) 70 Mg Tab 1 Tablet PO WK THURSDAYS AM Biotin 5000 (Biotin) 5 Mg Cap 5,000 Mcg PO QAM Zantac (Ranitidine HCl) 300 Mg Tab 300 Mg PO HS Lortab 5-325 mg (Hydrocodone-Acetaminophen) 1 Tab Tab 1 Tab PO Q6H PRN Flexeril (Cyclobenzaprine Hcl) 5 Mg Tab 5 Mg PO HS PRN Vitamin D3 (Cholecalciferol) 1,000 Unit Tab 1 Tab PO QAM Vitamin B-12 1000 Mcg (Cyanocobalamin) 1,000 Mcg Tab 1,000 Mcg PO QAM Glucosamine Chondroitin (Iujmvruvbhn-Edjzhedjuca-Iua C-) 1 Tab Tab 1 Tab PO BID Glucophage (Metformin Hcl) 500 Mg Tab 500 Mg PO DNNER Norvasc (Amlodipine Besylate) 10 Mg Tab 10 Mg PO QPM Prilosec (Omeprazole) 40 Mg Capcr 40 Mg PO QAM Kent[place]-3 (Fish Oil) 1 Ea Cap 1 Cap PO BID Os-Jameson 500 Plus D (Calcium/Vitamin D) Tab 1 Tab PO BID Multivitamin (Multivitamins) Tab 1 Tab PO QAM Current Inpatient Medications Current Inpatient Medications Medications (Trade) Dose Ordered Sig/Austen Route Start Time Stop Time Status Last Admin Dose Admin Lactated Ringer's 1,000 ml @ 60 mls/hr [id number] IV 06/17/17 06:00 06/17/17 22:39 Lactated Ringer's 1,000 ml @ 15 mls/hr Q24H IV 06/17/17 06:00 06/18/17 05:59 06/17/17 06:19 15 MLS/HR Celecoxib (CeleBREX CAP) 200 mg PREOP PO 06/17/17 06:00 06/17/17 18:00 06/17/17 06:20 200 MG Tranexamic Acid 1000 mg/Sodium Chloride 110 ml @ 660 mls/hr TODAY@06,0630 IV 06/17/17 06:00 06/17/17 18:00 06/17/17 06:31 660 MLS/HR Vancomycin HCl 1400 mg/Sodium Chloride 528 ml @ 200 mls/hr PREOP@0600 IV 06/17/17 06:00 06/17/17 18:00 06/17/17 06:20 200 MLS/HR Fentanyl Citrate (Fentanyl Inj) 50 mcg Q5M PRN IV 06/17/17 09:30 06/17/17 14:30 06/17/17 10:38 50 MCG Hydromorphone HCl (Dilaudid Inj) 0.5 mg Q5M PRN IV 06/17/17 09:30 06/17/17 14:30 06/17/17 10:55 0.5 MG Meperidine HCl (Demerol Inj) 25 mg Q5M PRN IV 06/17/17 09:30 06/17/17 14:30 Ondansetron HCl (Zofran Inj) 4 mg ONE PRN IV 06/17/17 09:30 06/17/17 14:30 Labetalol HCl (Normodyne IV) 5 mg Q5M PRN IV 06/17/17 09:30 06/17/17 14:30 Ephedrine Sulfate (EpHEDrine SULFATE INJ) 5 mg Q5M PRN IV 06/17/17 09:30 06/17/17 14:30 Atropine Sulfate (Atropine Sulfate 0.1MG/Ml Inj) 0.5 mg Q1M PRN IV 06/17/17 09:30 06/17/17 14:30 Amlodipine Besylate (Norvasc Tab) 10 mg QPM PO 06/17/17 21:00 07/17/17 20:59 UNV Ranitidine HCl (zANTac TAB) 300 mg HS PO 06/17/17 21:00 07/17/17 20:59 UNV Insulin Aspart (novoLOG ASPART) SLIDING SCALE G... ACHS SC 06/17/17 11:00 07/17/17 10:59 UNV Morphine Sulfate (MoRPHine SULFATE INJ) 2 mg Q4HWA PRN IV 06/17/17 10:00 07/01/17 09:59 Morphine Sulfate (MoRPHine SULFATE INJ) 4 mg Q4HWA PRN IV 06/17/17 10:00 07/01/17 09:59 Sodium Chloride 1,000 ml @ 100 mls/hr Q10H IV 06/17/17 09:57 06/18/17 09:56 06/17/17 11:55 100 MLS/HR Vancomycin HCl 1400 mg/Sodium Chloride 278 ml @ 125 mls/hr Q12H IV 06/17/17 10:00 06/17/17 12:14 UNV Celecoxib (CeleBREX CAP) 200 mg BID PO 06/17/17 21:00 07/17/17 20:59 UNV Oxycodone HCl (Roxicodone Immediate Rel Tab) 1 TABLET FOR PAIN RATING... Q4H PRN PO 06/17/17 10:00 07/01/17 09:59 UNV Acetaminophen 1000 mg/Empty Bag 100 ml @ 400 mls/hr Q8H IV 06/17/17 10:00 06/18/17 09:59 UNV Magnesium Hydroxide (Milk Of Magnesia Susp) 30 ml Q6H PRN PO 06/17/17 10:00 07/17/17 09:59 Bisacodyl (Dulcolax Supp) [address] 06/17/17 10:00 07/17/17 09:59 Senna (Senokot Tab) 17.2 mg HS PO 06/17/17 21:00 07/17/17 20:59 UNV Docusate Sodium (coLACE CAP) 100 mg BID PO 06/17/17 21:00 07/17/17 20:59 UNV Al Hydrox/Mg Hydrox/Simethicone (Maalox Max Susp) 15 ml Q4H PRN PO 06/17/17 10:00 07/17/17 09:59 UNV Zolpidem Tartrate (Ambien Tab) 5 mg HSZ PRN PO 06/17/17 10:00 07/17/17 09:59 UNV Multivitamins (Multivitamin Tab) 1 tab QAM PO 06/18/17 09:00 07/18/17 08:59 UNV Ondansetron HCl (Zofran Inj) 4 mg Q6H PRN IV 06/17/17 10:00 07/17/17 09:59 UNV Ferrous Gluconate (Ferrous Gluconate Tab) 324 mg TIDM PO 06/17/17 12:00 07/17/17 11:59 UNV Pantoprazole Sodium (Protonix Tab) 40 mg QAM PO 06/18/17 09:00 07/18/17 08:59 UNV Aspirin (Ecotrin Tab) 81 mg BID PO 06/17/17 21:00 07/17/17 20:59 UNV Review of Systems At least ten systems were reviewed and negative except as indicated in HPI Physical Exam Date Time Temp Pulse Resp B/P (MAP) Pulse Ox O2 Delivery O2 Flow Rate FiO2 06/17/17 12:00 69 18 130/69 (89) 98 Nasal Cannula 2.0 06/17/17 11:45 95 Nasal Cannula 2.0 06/17/17 11:45 95 Nasal Cannula 2.0 06/17/17 11:35 36.4 72 18 94/60 (71) 95 Nasal Cannula 2.0 06/17/17 11:20 70 16 112/55 96 Nasal Cannula 2 06/17/17 11:05 36.4 72 17 108/57 95 Nasal Cannula 2 06/17/17 10:55 69 15 117/65 98 Nasal Cannula 2 06/17/17 10:45 70 15 118/62 98 Nasal Cannula 2 06/17/17 10:35 68 14 128/63 98 Nasal Cannula 2 06/17/17 10:25 70 15 127/62 99 Nasal Cannula 2 06/17/17 10:15 72 19 106/59 97 Nasal Cannula 2 06/17/17 10:05 76 19 106/64 92 Nasal Cannula 2 06/17/17 09:55 36.6 80 16 106/52 95 Oxymask 10 06/17/17 05:51 36.5 79 20 173/85 93 Room Air General Appearance: no apparent distress, + obese Head: normocephalic, atraumatic Eyes: normal inspection, sclerae normal ENT: hearing grossly normal Neck: no JVD, trachea midline Respiratory/Chest: chest non-tender, lungs clear, normal breath sounds, no respiratory distress, no accessory muscle use Cardiovascular: regular rate, rhythm, no edema, no gallop, no JVD, no murmur, normal peripheral pulses Abdomen/GI: normal bowel sounds, non tender, soft, no organomegaly Back: normal inspection Extremities/Musculoskelatal: normal inspection, no pedal edema, + pertinent finding (L hip with stretchy foam bandage c/d/i over L lateral hip-PIERCE drain in place, bloody drainage. 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, no motor/sensory deficits, alert, normal mood/affect, oriented x 3 Skin: normal color, warm/dry, no rash Laboratory Results 05/17/17 10:03 Red Blood Count 4.64, Mean Corpuscular Volume 94.4, Mean Corpuscular Hemoglobin 31.0, Mean Corpuscular Hemoglobin Concent 32.9, Mean Platelet Volume 11.1, Neutrophils (%) (Auto) 59.8, Lymphocytes (%) (Auto) 31.7, Monocytes (%) (Auto) 4.8, Eosinophils (%) (Auto) 2.9, Basophils (%) (Auto) 0.6, Neutrophils # (Auto) 2.89, Lymphocytes # (Auto) 1.53, Monocytes # (Auto) 0.23, Eosinophils # (Auto) 0.14, Basophils # (Auto) 0.03 05/17/17 10:03 Test 05/17/17 10:03 06/17/17 11:57 White Blood Count 4.83 K/uL (4.8-10.8) Red Blood Count 4.64 M/uL (4.2-5.4) Hemoglobin 14.4 g/dL (12.0-16.0) Hematocrit 43.8 % (37-47) Mean Corpuscular Volume 94.4 fL (80-100) Mean Corpuscular Hemoglobin 31.0 pg (25-34) Mean Corpuscular Hemoglobin Concent 32.9 g/dl (32-36) Platelet Count 239 K/uL (130-400) Mean Platelet Volume 11.1 fL (7.4-10.4) Neutrophils (%) (Auto) 59.8 % Lymphocytes (%) (Auto) 31.7 % Monocytes (%) (Auto) 4.8 % Eosinophils (%) (Auto) 2.9 % Basophils (%) (Auto) 0.6 % Neutrophils # (Auto) 2.89 K/uL (1.4-6.5) Lymphocytes # (Auto) 1.53 K/uL (1.2-3.4) Monocytes # (Auto) 0.23 K/uL (0.11-0.59) Eosinophils # (Auto) 0.14 K/uL (0-0.5) Basophils # (Auto) 0.03 K/uL (0-0.2) RDW Standard Deviation 45.5 fL (36.4-46.3) RDW Coefficient of Variation 13.2 % (11.5-14.5) Immature Granulocyte % (Auto) 0.2 % Immature Granulocyte # (Auto) 0.01 K/uL (0.00-0.02) Prothrombin Time 9.9 SECONDS (9.0-12.0) Prothromb Time International Ratio 0.9 (0.9-1.1) Activated Partial Thromboplast Time 24.5 SECONDS (21.0-31.0) Partial Thromboplastin Ratio 0.9 Urine Color YELLOW Urine Appearance CLEAR (CLEAR) Urine pH 6.0 (4.5-7.5) Urine Specific [place] 1.017 (1.000-1.030) Urine Protein NEG (NEG) Urine Glucose (UA) NEG (NEG) Urine Ketones NEG (NEG) Urine Occult Blood NEG (NEG) Urine Nitrite NEG (NEG) Urine Bilirubin NEG (NEG) Urine Urobilinogen NEG (NEG) Urine Leukocyte Esterase MODERATE (NEG) Urine WBC (Auto) 10-30 /hpf (0-5) Urine RBC (Auto) 0-4 /hpf (0-4) Urine Hyaline Casts (Auto) 1-5 /lpf (0-5) Urine Epithelial Cells (Auto) >30 /lpf (0-5) Urine Bacteria (Auto) 2+ (NEG) Anion Gap 8.0 mmol/L (3-11) Est Creatinine Clear Calc Drug Dose 63.4 ml/min Estimated GFR () 80.5 Estimated GFR (Non- 69.4 BUN/Creatinine Ratio 17.8 (10-20) Estimated Average Glucose 140 mg/dl Hemoglobin A1c 6.5 % (4.5-5.6) Calcium Level 9.2 mg/dl (8.5-10.1) Albumin 3.4 gm/dl (3.4-5.0) Bedside Glucose 125 mg/dl (70-90) Date/Time Source Procedure Growth Status 05/17/17 10:03 Urine , Clean Catch Urine Culture - Final Gamma Strep Not Enterococcus Lactobacillus Species Complete Last 24 Hours Test 06/17/17 05:40 06/17/17 10:09 06/17/17 11:57 Bedside Glucose 137 mg/dl 147 mg/dl 125 mg/dl Assessment & Plan 67 yo F with severe L hip OA presents for L hip arthroplasty 1. s/p L hip arthroplasty -POD 0; surgery performed by Dr. Merchant -post-operative pain well managed -monitor for acute blood loss with daily H&H -pt encouraged to utilize spirometry to prevent post-op infection -PT/OT -activity and wound care orders per ortho protocol -will continue to follow 2. DMII-on Metformin 500mg PO daily at home with latest A1C 6.3 in November 2016- very well-controlled. Cont ISS with carb coverage for glycemic control while inpatient. Hold metformin. Currently is at goal. 3. HTN-controlled, cont Norvasc at home dose of 10mg QHS DVT Prophylaxis -ASA 81 mg BID per ortho protocol Code Status -full code Dispo -per ortho. Thank you for this consultation. We will follow the patient with you during their hospital stay. You can reach a member of the [facility] Team 22/04 via pager @ [phone]. You can reach me via cell @ [phone]. Jodi Millard DO [facility]
[2017-06-17] MEDS ORDERED: DEXTROSE 50% 50 ML SYR IV PRN (13:00)
[2017-06-17] MEDS ORDERED: GLUCAGON FOR INJ 1 MG VIAL SQ PRN (13:00)
[2017-06-17] MEDS ORDERED: GLUCOSE 10 TABS/TUBE PO PRN (13:00)
[2017-06-17] MEDS ORDERED: GLUCOSE 40% GEL 15 GM TUBE PO PRN (13:00)
[2017-06-17] MEDS: ACETAMINOPHEN IV 1,000 MG in EMPTY BAG 0 ML IV SCH ×2 (13:15→21:39)
[2017-06-17] MEDS ORDERED: PHENYLEPHRINE HCL INJ 10 MG/ML VIAL ONE (13:25)
[2017-06-17] MEDS: ONDANSETRON INJ 2 MG/ML 2 ML VIAL IV PRN (14:36)
[2017-06-17] MEDS: OXYCODONE HCL IR 5 MG TAB (IMMEDIATE RELEASE) PO PRN ×2 (17:31→21:38)
[2017-06-17] MEDS ORDERED: VANCOMYCIN INJ 1,400 MG in SODIUM CHLORIDE 0.9% 500ML 500 ML IV SCH (18:00)
[2017-06-17] MEDS: FERROUS GLUCONATE 324 MG TAB PO SCH (18:53)
[2017-06-17] MEDS: INSULIN ASPART 100 UNITS/ML 3 ML PEN SC SCH ×2 (18:57→21:25)
--- NOTE | 2017-06-17 19:42 | OPERATIVE REPORT ---
DATE OF OPERATION: 06/17/2017 INDICATION FOR PROCEDURE: The patient is a 67-year-old female who presents with bilateral hip pain but left is most significant. She has failed conservative management. She has radiographs demonstrate bilateral hip osteoarthritis, left greater than right. PREOPERATIVE DIAGNOSIS: End-stage osteoarthritis, left hip; obesity, BMI 39.6. POSTOPERATIVE DIAGNOSIS: Same including a chronic gluteus medius abductor tear and chronic trochanteric bursitis of the left hip. PROCEDURE: Left total hip arthroplasty with repair of chronic gluteus medius abductor tear and superficial wound VAC. SURGEON: Dr. Merchant. SUBSTANCE ABUSE NURSE: JENNIFER Mccoy. ANESTHESIA: Spinal sedation and Orthomix. OPERATIVE PROCEDURE: The patient was taken to the operating room, anesthetized under spinal and sedation. She was placed supine on the operating room table. she was placed onto a sacral pad. Her foot was placed on the foot roll to flex the knee 90 degrees and hip 60 degrees. The bed was placed in some Trendelenburg and tilted to the right to help expose the left hip. Left hip was sterilely prepped and draped in usual sterile fashion. Exam demonstrates she had a flexion contracture about 15-20 degrees but she had good flexion to about 100 degrees in the hip. She had some limitation of internal rotation. Did have obesity of the hip. After hip was sterilely prepped and draped with ChloraPrep, a Hardinge type lateral approach was performed to the left hip. Lateral incision was made over the hip. Skin was incised sharply. A deep layer of fat was divided down to the fascia. Multiple bleeders were cauterized. The fascia zac was identified and divided longitudinally and the gluteus jas fascia was split proximally. This revealed a large chronic gluteus medius tendon tear with some retraction anteriorly and slightly superiorly. The minimus was still intact. The greater trochanter had some osteophytes noted around it and there was exposed bone over an area of at least 3 cm. At this time, we used the tear and then split the medius just posterior to the level of the tear and then extended the incision down into the vastus lateralis for about 3 cm and then raised a muscular capsular flap by moving the rest of the medius. I reflected the medius off the minimus posteriorly, splitting the minimus, retracting it anteriorly and posteriorly and then dividing the capsule down to the bone and then releasing the capsule off the anterior neck of the humerus down to the lesser trochanter. The hip was dislocated with flexion and external rotation. The patient had femoral neck osteophytes, osteoarthritis of the femoral head and acetabular osteophytes with a larger inferior osteophyte. I used the Charlo Accolade II tapered stem and the Trident PSL cup. The femoral neck cut was made 15 mm proximal to the lesser trochanter in neutral anteversion. The oscillating saw was used. The femoral head fragment was removed and measured at about 46 mm in diameter. The anterior capsule was released and then we placed a blunt Hohmann retractor anterior to the acetabulum. A self-retaining superior retractor impacted into the ileum and a double-angled inferior ischial retractor. The patient had very large redundant acetabular labrum. This was resected circumferentially. The soft tissue in the acetabular fossa was resected, did a partial capsulectomy and this exposed the acetabulum well. The first reamer we started with was a 44 mm reamer, which I used to ream to the inner table and medialized the reamers and then went up in sequential 2 mm increments up to a size 50, which had appropriate fit and fill and corresponded to our templating. The trial was placed and had a good tight fit. Then we removed that and irrigated out the acetabulum copiously and then went ahead and impacted in the Trident PSL 50 mm E shell. There was a tight pressfit. We placed this in approximately 45 degrees of abduction and 15 degrees of anteversion. Two additional screws in the posterior superior quadrant were used, which were 6.5 x 20 mm screws. We did remove the large anterior inferior osteophyte. The Trident X3 poly 36 mm E 10-degree liner was then placed with the high wall placed posteriorly. We assessed the stability of the plastic insertion, then went ahead and exposed the femur with flexion and external rotation. Then went ahead and used a box osteotome to open up the canal, used a canal reamer, followed by sequential broaches up to a size 4, which had appropriate fit and fill. We used 127-degree neck angle based on preoperative templating. Then went ahead and did a trial reduction with a +0 neck length, 36 mm head. This gave satisfactory leg length stability through full range of motion. The trials were removed and then we did inject the Orthomix injection around the capsule, around the acetabular component. We irrigated out the joint copiously and then went ahead and impacted in the size 4 Cynthia Accolade II stem with 127-degree neck angle. This was fully seated and then we went ahead and placed on the Biolox ceramic 36 mm +0 head. Then after that was impacted onto the stem, I went ahead and reduced the femur to the acetabulum. We assessed position which was satisfactory. Stability was stable in flexion and adduction, internal rotation and adduction, external rotation and extension. The soft tissue tension was satisfactory for repair. Then went ahead and used a Betadine soak. We repaired the greater trochanter by curetting any of the soft tissue remaining down the bone and removing some of the trochanter spurs and then went ahead and placed transosseous drill holes to the greater trochanter and passed three #5 FiberWire sutures through the trochanter. After irrigation with Betadine with antibiotic solution and bacitracin, then the gluteus medius was repaired with the #5 FiberWire sutures using Pravin-Darren suture technique. We did a qonc-pj-mzyp closure of the gluteus medius at the tip of the trochanter with jgztdo-yo-pfrjc #2 FiberWire and we closed the vastus lateralis anterior edge with wxxswg-ov-opbqj #2 FiberWire and the remaining vastus lateralis was closed with bmnayb-yh-yuoyn #1 Vicryl sutures and the split in the gluteus medius was closed with interrupted ewoiqh-ur-dvxux #1 Vicryl sutures. We tested the repair, it was stable through full motion. This closure was performed over 2 Hemovac drains which were brought out laterally. Then I went ahead and we repaired the fascia zac with gqinns-yv-bkinj #1 Vicryl sutures and then closed the subcutaneous tissues with large #2 Vicryl and 2-0 Vicryl sutures and the wound was closed with jaden. Sterile dressings were applied and a superficial wound VAC was applied as well. JENNIFER Mccoy, was my visual merchandising assistant. He functioned as visual merchandising assistant for the entire procedure. He assisted in prepping, draping, leg positioning, soft tissue retraction, instrument management during the replacement and he performed the outer fascial closure, subcutaneous closure, wound VAC application and will participate in the postoperative care of the patient. I attest to the content of the Intraoperative Record and any orders documented therein. Any exception s are noted below.
[2017-06-17] MEDS: AMLODIPINE BESYLATE 5 MG TAB PO SCH (21:15)
[2017-06-17] MEDS: RANITIDINE HCL 150 MG TAB PO SCH (21:15)
[2017-06-17] MEDS: DOCUSATE SODIUM 100 MG CAP PO SCH (21:16)
[2017-06-17] MEDS: ASPIRIN 81 MG ECTAB PO SCH (21:16)
[2017-06-17] MEDS: SENNA 8.6 MG TAB PO SCH (21:16)
[2017-06-17] MEDS: CeleBREX 200 MG CAP PO SCH (21:38)
[2017-06-18] MEDS: OXYCODONE HCL IR 5 MG TAB (IMMEDIATE RELEASE) PO PRN ×4 (01:52→21:22)
[2017-06-18 03:42] VITALS: BP 125/83; PULSE 74; TEMP 36.7; O2SAT 95
[2017-06-18] MEDS: ACETAMINOPHEN IV 1,000 MG in EMPTY BAG 0 ML IV SCH (05:43)
[2017-06-18] MEDS: SODIUM CHLORIDE 0.9% 1000ML 1,000 ML IV SCH (05:43)
[2017-06-18 06:49] LABS: BASO % 0.4 %; BASO ABS # 0.02 K/uL (0-0.2); COMPLETE YES; EOS % 2.8 %; LYMPH % 21.6 %; LYMPH ABS # 1.09 K/uL (1.2-3.4); MEAN CELL VOLUME 94.5 fL (80-100); MEAN CORPUSCULAR HEMOGLOBIN 31.8 pg (25-34); MEAN CORPUSCULAR HGB CONC 33.6 g/dl (32-36); MEAN PLATELET VOLUME 10.3 fL (7.4-10.4); MONO % 6.7 %; NEUT % 68.5 %; PLATELET COUNT 167 K/uL (130-400); RED BLOOD COUNT 3.81 M/uL (4.2-5.4); WHITE BLOOD COUNT 5.05 K/uL (4.8-10.8)
[2017-06-18 07:00] VITALS: BP 103/69; PULSE 69; TEMP 36.8; O2SAT 93
[2017-06-18 07:22] LABS: BUN/CREATININE RATIO 17.1 (10-20); CALCIUM 7.8 mg/dl (8.5-10.1); CREATININE 0.68 mg/dl (0.60-1.20); POTASSIUM 3.7 mmol/L (3.5-5.1)
--- NOTE | 2017-06-18 07:34 | Orthopedic Progress Note ---
Orthopedic Progress Note Date of Service Jun 18, 2017. Subjective Post OP Day: 1 Reports: feeling well, pain controlled w PO medications, Denies: complaints, chest pain, SOB, nausea / vomiting, light headedness, calf pain Objective calves soft nontender, N/V intact, capillary refill less than 2 sec., dressing C /D/I, A&O x3, toes mobile Wound vac in tact. Date Time Temp Pulse Resp B/P (MAP) Pulse Ox O2 Delivery O2 Flow Rate FiO2 06/18/17 07:15 Room Air 06/18/17 07:00 36.8 69 17 103/69 (80) 93 Room Air 06/18/17 03:42 36.7 74 16 125/83 (97) 95 Room Air 06/17/17 23:57 Room Air 06/17/17 23:00 36.8 78 16 122/75 (91) 95 Room Air 06/17/17 19:10 36.9 89 18 132/78 (96) 94 Room Air 06/17/17 18:45 96 Nasal Cannula 2.0 06/17/17 15:05 36.4 76 18 106/67 (80) 96 Nasal Cannula 2.0 06/17/17 14:32 36.3 77 18 125/70 (88) 93 Room Air 06/17/17 13:32 75 16 128/71 (90) 95 Room Air 06/17/17 12:36 80 18 123/73 (90) 96 Nasal Cannula 2.0 06/17/17 12:00 69 18 130/69 (89) 98 Nasal Cannula 2.0 06/17/17 11:45 95 Nasal Cannula 2.0 06/17/17 11:45 95 Nasal Cannula 2.0 06/17/17 11:35 36.4 72 18 94/60 (71) 95 Nasal Cannula 2.0 06/17/17 11:20 70 16 112/55 96 Nasal Cannula 2 06/17/17 11:05 36.4 72 17 108/57 95 Nasal Cannula 2 06/17/17 10:55 69 15 117/65 98 Nasal Cannula 2 06/17/17 10:45 70 15 118/62 98 Nasal Cannula 2 06/17/17 10:35 68 14 128/63 98 Nasal Cannula 2 06/17/17 10:25 70 15 127/62 99 Nasal Cannula 2 06/17/17 10:15 72 19 106/59 97 Nasal Cannula 2 06/17/17 10:05 76 19 106/64 92 Nasal Cannula 2 06/17/17 09:55 36.6 80 16 106/52 95 Oxymask 10 Laboratory Results 24 Hours: Test 06/18/17 06:34 White Blood Count 5.05 K/uL Red Blood Count 3.81 M/uL Hemoglobin 12.1 g/dL Hematocrit 36.0 % Mean Corpuscular Volume 94.5 fL Mean Corpuscular Hemoglobin 31.8 pg Mean Corpuscular Hemoglobin Concent 33.6 g/dl Platelet Count 167 K/uL Mean Platelet Volume 10.3 fL Neutrophils (%) (Auto) 68.5 % Lymphocytes (%) (Auto) 21.6 % Monocytes (%) (Auto) 6.7 % Eosinophils (%) (Auto) 2.8 % Basophils (%) (Auto) 0.4 % Neutrophils # (Auto) 3.46 K/uL Lymphocytes # (Auto) 1.09 K/uL Monocytes # (Auto) 0.34 K/uL Eosinophils # (Auto) 0.14 K/uL Basophils # (Auto) 0.02 K/uL Assessment & Plan Assessment: POD #1, Left BRI, Abductor repair, placement wound vac Plan: PT/ OT- NO hip abduction exercises due to abductor repair DVT proph- ASA D/C planning- OPPT vs, HH As per medicine Inhouse Planning Pain Management: Celebrex, Oxycontin, Morphine, PO Tylenol, Oxy IR DVT Prophylaxis: TEDs, SCDs, ASA Discharge Planning Discharge Planning: home with oppt Pain Management: Celebrex, Oxycontin, PO Tylenol, Oxy IR DVT Prophylaxis: TEDs, ASA Therapy: Physical Therapy, Occupational Therapy
[2017-06-18] MEDS: ASPIRIN 81 MG ECTAB PO SCH ×2 (08:46→21:25)
[2017-06-18] MEDS: PANTOprazole SOD 40 MG TAB PO SCH (08:46)
[2017-06-18] MEDS: MULTIVITAMIN TAB PO SCH (08:46)
[2017-06-18] MEDS: DOCUSATE SODIUM 100 MG CAP PO SCH ×2 (08:46→21:24)
[2017-06-18] MEDS: FERROUS GLUCONATE 324 MG TAB PO SCH ×3 (08:47→18:18)
[2017-06-18] MEDS: CeleBREX 200 MG CAP PO SCH ×2 (08:47→21:23)
[2017-06-18] MEDS: ONDANSETRON INJ 2 MG/ML 2 ML VIAL IV PRN ×2 (08:49→21:25)
--- NOTE | 2017-06-18 09:05 | Anesthesiology Progress Note ---
Anesthesia Post Op Note Date & Time Jun 18, 2017 at 09:05 Vital Signs Pain Intensity: 4.0 Vital Signs Past 12 Hours Date Time Temp Pulse Resp B/P (MAP) Pulse Ox O2 Delivery O2 Flow Rate FiO2 06/18/17 07:15 Room Air 06/18/17 07:00 36.8 69 17 103/69 (80) 93 Room Air 06/18/17 03:42 36.7 74 16 125/83 (97) 95 Room Air 06/17/17 23:57 Room Air 06/17/17 23:00 36.8 78 16 122/75 (91) 95 Room Air Notes Mental Status: alert / awake / arousable, participated in evaluation Pt Amnestic to Procedure: Yes Nausea / Vomiting: adequately controlled Pain: adequately controlled Airway Patency, RR, SpO2: stable & adequate BP & HR: stable & adequate Hydration State: stable & adequate Neuraxial Anesthesia: sensory block resolved Anesthetic Complications: no major complications apparent
[2017-06-18] MEDS: INSULIN ASPART 100 UNITS/ML 3 ML PEN SC SCH ×4 (09:35→21:00)
[2017-06-18] MEDS ORDERED: METOCLOPRAMIDE HCL INJ 5 MG/ML 2 ML VIAL IV PRN (11:30)
[2017-06-18 15:00] VITALS: BP 104/67; PULSE 75; TEMP 36.8; O2SAT 92
--- NOTE | 2017-06-18 15:48 | Progress Note ---
Medicine Progress Note Date & Time of Visit: Jun 18, 2017 at 15:43. Subjective patient seen resting in bed, comfortable was having nausea this morning, now resolved denies chest pain, dyspnea, palpitations, dizziness pain is adequately controlled denies other symptoms Objective Last 8 Hrs Date Time Temp Pulse Resp B/P (MAP) Pulse Ox O2 Delivery O2 Flow Rate FiO2 06/18/17 15:00 36.8 75 18 104/67 (79) 92 Room Air Physical Exam: General- oriented x 3, not in distress, speaks in sentences with no effort Eyes- EOMI, anicteric Neck- supple, no JVD Lungs- clear to auscultation bilaterally Heart- regular rhythm; no murmur, normal rate Abdomen- normal bowel sounds, soft, nontender Extremities- no pretibial edema, no calf tenderness left hip: surgical site with drain in place- no surrounding erythema, discharge Neuro- alert, oriented x 3; no gross focal deficits Skin- warm & dry Laboratory Results: Last 24 Hours Test 06/17/17 16:56 06/17/17 21:03 06/18/17 06:34 06/18/17 07:55 Bedside Glucose 163 mg/dl 191 mg/dl 143 mg/dl White Blood Count 5.05 K/uL Red Blood Count 3.81 M/uL Hemoglobin 12.1 g/dL Hematocrit 36.0 % Mean Corpuscular Volume 94.5 fL Mean Corpuscular Hemoglobin 31.8 pg Mean Corpuscular Hemoglobin Concent 33.6 g/dl Platelet Count 167 K/uL Mean Platelet Volume 10.3 fL Neutrophils (%) (Auto) 68.5 % Lymphocytes (%) (Auto) 21.6 % Monocytes (%) (Auto) 6.7 % Eosinophils (%) (Auto) 2.8 % Basophils (%) (Auto) 0.4 % Neutrophils # (Auto) 3.46 K/uL Lymphocytes # (Auto) 1.09 K/uL Monocytes # (Auto) 0.34 K/uL Eosinophils # (Auto) 0.14 K/uL Basophils # (Auto) 0.02 K/uL RDW Standard Deviation 43.6 fL RDW Coefficient of Variation 12.7 % Immature Granulocyte % (Auto) 0.0 % Immature Granulocyte # (Auto) 0.00 K/uL Sodium Level 141 mmol/L Potassium Level 3.7 mmol/L Chloride Level 111 mmol/L Carbon Dioxide Level 23 mmol/L Anion Gap 7.0 mmol/L Blood Urea Nitrogen 12 mg/dl Creatinine 0.68 mg/dl Est Creatinine Clear Calc Drug Dose 80.1 ml/min Estimated GFR () 104.2 Estimated GFR (Non- 89.9 BUN/Creatinine Ratio 17.1 Random Glucose 154 mg/dl Calcium Level 7.8 mg/dl Test 06/18/17 11:56 Bedside Glucose 201 mg/dl Assessment & Plan 67 yo F with severe L hip OA presents for L hip arthroplasty 1. s/p L hip arthroplasty -POD 1; surgery performed by Dr. Merchant - nausea resolved - monitor CBC and PRP will start IV fluids today - overall stable 2. DMII-on Metformin 500mg PO daily at home with latest A1C 6.3 in November 2016- very well-controlled. -- hold Metformin -- continue Insulin Sliding Scale 3. HTN ---controlled, cont Norvasc at home dose of 10mg QHS DVT Prophylaxis -ASA 81 mg BID per ortho protocol Thank you for this consultation. We will follow the patient with you during their hospital stay. You can reach a member of the [facility] Hospitalist Team 22/04 via pager @ [phone]. Current Inpatient Medications: Current Inpatient Medications Medications (Trade) Dose Ordered Sig/Austen Route Start Time Stop Time Status Last Admin Dose Admin Amlodipine Besylate (Norvasc Tab) 10 mg QPM PO 06/17/17 21:00 07/17/17 20:59 06/17/17 21:15 10 MG Ranitidine HCl (zANTac TAB) 300 mg HS PO 06/17/17 21:00 07/17/17 20:59 06/17/17 21:15 300 MG Insulin Aspart (novoLOG ASPART) SLIDING SCALE G... ACHS SC 06/17/17 17:15 07/17/17 17:14 06/18/17 13:15 5 UNITS Morphine Sulfate (MoRPHine SULFATE INJ) 2 mg Q4HWA PRN IV 06/17/17 10:00 07/01/17 09:59 Morphine Sulfate (MoRPHine SULFATE INJ) 4 mg Q4HWA PRN IV 06/17/17 10:00 07/01/17 09:59 Celecoxib (CeleBREX CAP) 200 mg BID PO 06/17/17 21:00 07/17/17 20:59 06/18/17 08:47 200 MG Oxycodone HCl (Roxicodone Immediate Rel Tab) 1 TABLET FOR PAIN RATING... Q4H PRN PO 06/17/17 10:00 07/01/17 09:59 06/18/17 13:11 5 MG Magnesium Hydroxide (Milk Of Magnesia Susp) 30 ml Q6H PRN PO 06/17/17 10:00 07/17/17 09:59 Bisacodyl (Dulcolax Supp) 10 mg DAILY PRN IN 06/17/17 10:00 07/17/17 09:59 Senna (Senokot Tab) 17.2 mg HS PO 06/17/17 21:00 07/17/17 20:59 06/17/17 21:16 17.2 MG Docusate Sodium (coLACE CAP) 100 mg BID PO 06/17/17 21:00 07/17/17 20:59 06/18/17 08:46 100 MG Al Hydrox/Mg Hydrox/Simethicone (Maalox Max Susp) 15 ml Q4H PRN PO 06/17/17 10:00 07/17/17 09:59 Zolpidem Tartrate (Ambien Tab) 5 mg HSZ PRN PO 06/17/17 10:00 07/17/17 09:59 Multivitamins (Multivitamin Tab) 1 tab QAM PO 06/18/17 09:00 07/18/17 08:59 06/18/17 08:46 1 TAB Ondansetron HCl (Zofran Inj) 4 mg Q6H PRN IV 06/17/17 10:00 07/17/17 09:59 06/18/17 08:49 4 MG Ferrous Gluconate (Ferrous Gluconate Tab) 324 mg TIDM PO 06/17/17 17:45 07/17/17 17:44 06/18/17 08:47 324 MG Pantoprazole Sodium (Protonix Tab) 40 mg QAM PO 06/18/17 09:00 07/18/17 08:59 06/18/17 08:46 40 MG Aspirin (Ecotrin Tab) 81 mg BID PO 06/17/17 21:00 07/17/17 20:59 06/18/17 08:46 81 MG Glucose (Glucose 40% Gel) 15-30 GRAMS 15 GRAMS... UD PRN PO 06/17/17 13:00 07/17/17 12:59 Glucose (Glucose Chew Tab) 4-8 Tablets 4 Tabl... UD PRN PO 06/17/17 13:00 07/17/17 12:59 Dextrose (Dextrose 50% 50ML Syringe) 25-50ML OF 50% DW IV FOR... UD PRN IV 06/17/17 13:00 07/17/17 12:59 Glucagon (Glucagon Inj) 1 mg UD PRN SQ 06/17/17 13:00 07/17/17 12:59 Metoclopramide HCl (Reglan Inj) 10 mg Q6H PRN IV 06/18/17 11:30 07/18/17 11:29 06/18/17 11:35 10 MG
[2017-06-18] MEDS: NSS + 20MEQ KCL 1000ML 1,000 ML IV SCH (16:55)
[2017-06-18] MEDS: SENNA 8.6 MG TAB PO SCH (21:24)
[2017-06-18] MEDS: RANITIDINE HCL 150 MG TAB PO SCH (21:24)
[2017-06-18] MEDS: AMLODIPINE BESYLATE 5 MG TAB PO SCH (21:25)
[2017-06-18 23:15] VITALS: BP 139/72; PULSE 86; TEMP 36.8; O2SAT 96
[2017-06-19] MEDS: NSS + 20MEQ KCL 1000ML 1,000 ML IV SCH ×2 (05:17→17:44)
[2017-06-19 06:27] VITALS: BP 120/78; PULSE 86; TEMP 36.9; O2SAT 98
[2017-06-19] MEDS: FERROUS GLUCONATE 324 MG TAB PO SCH ×3 (07:31→19:03)
[2017-06-19] MEDS: DOCUSATE SODIUM 100 MG CAP PO SCH ×2 (07:32→21:31)
[2017-06-19] MEDS: MULTIVITAMIN TAB PO SCH (07:32)
[2017-06-19] MEDS: ASPIRIN 81 MG ECTAB PO SCH ×2 (07:32→21:32)
[2017-06-19] MEDS: CeleBREX 200 MG CAP PO SCH ×2 (07:32→21:32)
[2017-06-19] MEDS: PANTOprazole SOD 40 MG TAB PO SCH (07:32)
[2017-06-19] MEDS: INSULIN ASPART 100 UNITS/ML 3 ML PEN SC SCH ×4 (07:37→21:00)
[2017-06-19 08:50] VITALS: BP 144/80
--- NOTE | 2017-06-19 08:52 | Orthopedic Progress Note ---
Orthopedic Progress Note Date of Service Jun 19, 2017. Subjective Post OP Day: 2 Reports: feeling well, Denies: chest pain, SOB, nausea / vomiting, light headedness, calf pain Objective calves soft nontender, N/V intact, hip located, dressing C/D/I (prevena), A&O x3 , toes mobile Date Time Temp Pulse Resp B/P (MAP) Pulse Ox O2 Delivery O2 Flow Rate FiO2 06/19/17 06:27 36.9 86 16 120/78 (92) 98 Room Air 06/19/17 00:00 Room Air 06/18/17 23:15 36.8 86 18 139/72 (94) 96 Room Air 06/18/17 15:45 Room Air 06/18/17 15:00 36.8 75 18 104/67 (79) 92 Room Air Assessment & Plan Assessment: POD #2, Left BRI, Abductor repair, placement wound vac Plan: PT/ OT- NO hip abduction exercises due to abductor repair DVT proph- ASA 81MG BID D/C planning- REFERRAL PENDING FOR [facility]. LIKELY TRANSFER SATURDAY MEDICAL MANAGEMENT Inhouse Planning Pain Management: Celebrex, Oxycontin, Morphine, PO Tylenol, Oxy IR DVT Prophylaxis: TEDs, SCDs, ASA Discharge Planning Discharge Planning: home with oppt Pain Management: Celebrex, Oxycontin, PO Tylenol, Oxy IR DVT Prophylaxis: TEDs, ASA Therapy: Physical Therapy, Occupational Therapy
[2017-06-19 15:36] VITALS: BP 136/84; PULSE 87; TEMP 36.8; O2SAT 97
[2017-06-19] MEDS: OXYCODONE HCL IR 5 MG TAB (IMMEDIATE RELEASE) PO PRN (17:43)
[2017-06-19] MEDS: AMLODIPINE BESYLATE 5 MG TAB PO SCH (21:31)
[2017-06-19] MEDS: RANITIDINE HCL 150 MG TAB PO SCH (21:32)
[2017-06-19] MEDS: SENNA 8.6 MG TAB PO SCH (21:33)
[2017-06-19 23:35] VITALS: BP 135/85; PULSE 83; TEMP 36.7; O2SAT 94
--- NOTE | 2017-06-19 23:39 | Progress Note ---
Medicine Progress Note Date & Time of Visit: Jun 19, 2017 at 23:37. Subjective states she feels better today pain well controlled nausea resolved denies other symptoms Objective Last 8 Hrs Date Time Temp Pulse Resp B/P (MAP) Pulse Ox O2 Delivery O2 Flow Rate FiO2 06/19/17 16:00 Room Air Physical Exam: General- oriented x 3, not in distress, speaks in sentences with no effort Eyes- anicteric Neck- no JVD Lungs- clear to auscultation bilaterally, no rales/wheezes Heart- regular rhythm; no murmur, normal rate Abdomen- normal bowel sounds, soft, nontender Extremities- no pretibial edema, no calf tenderness left hip: surgical site with drain in place- no surrounding erythema, discharge Neuro- alert, oriented x 3; no gross focal deficits Skin- warm & dry Laboratory Results: Last 24 Hours Test 06/19/17 06:25 06/19/17 11:57 Bedside Glucose 142 mg/dl 133 mg/dl Assessment & Plan 67 yo F with severe L hip OA presents for L hip arthroplasty 1. s/p L hip arthroplasty - POD 2; surgery performed by Dr. Merchant - stable overall - CBC and PRP tomorrow 2. DMII-on Metformin 500mg PO daily at home with latest A1C 6.3 in November 2016- very well-controlled. -- hold Metformin -- continue Insulin Sliding Scale -- BSG stable 3. HTN ---controlled, cont Norvasc at home dose of 10mg QHS DVT Prophylaxis -ASA 81 mg BID per ortho protocol Thank you for this consultation. We will follow the patient with you during their hospital stay. You can reach a member of the [facility] Hospitalist Team 22/04 via pager @ . Current Inpatient Medications: Current Inpatient Medications Medications (Trade) Dose Ordered Sig/Aust[place] Route Start Time Stop Time Status Last Admin Dose Admin Amlodipine Besylate (Norvasc Tab) 10 mg QPM PO 06/17/17 21:00 07/17/17 20:59 06/19/17 21:31 10 MG Ranitidine HCl (zANTac TAB) 300 mg HS PO 06/17/17 21:00 07/17/17 20:59 06/19/17 21:32 300 MG Insulin Aspart (novoLOG ASPART) SLIDING SCALE G... ACHS SC 06/17/17 17:15 07/17/17 17:14 06/19/17 19:08 1 UNITS Morphine Sulfate (MoRPHine SULFATE INJ) 2 mg Q4HWA PRN IV 06/17/17 10:00 07/01/17 09:59 Morphine Sulfate (MoRPHine SULFATE INJ) 4 mg Q4HWA PRN IV 06/17/17 10:00 07/01/17 09:59 Celecoxib (CeleBREX CAP) 200 mg BID PO 06/17/17 21:00 07/17/17 20:59 06/19/17 21:32 200 MG Oxycodone HCl (Roxicodone Immediate Rel Tab) 1 TABLET FOR PAIN RATING... Q4H PRN PO 06/17/17 10:00 07/01/17 09:59 06/19/17 17:43 10 MG Magnesium Hydroxide (Milk Of Magnesia Susp) 30 ml Q6H PRN PO 06/17/17 10:00 07/17/17 09:59 Bisacodyl (Dulcolax Supp) 10 mg DAILY PRN WI 06/17/17 10:00 07/17/17 09:59 Senna (Senokot Tab) 17.2 mg HS PO 06/17/17 21:00 07/17/17 20:59 06/19/17 21:33 17.2 MG Docusate Sodium (coLACE CAP) 100 mg BID PO 06/17/17 21:00 07/17/17 20:59 06/19/17 21:31 100 MG Al Hydrox/Mg Hydrox/Simethicone (Maalox Max Susp) 15 ml Q4H PRN PO 06/17/17 10:00 07/17/17 09:59 Zolpidem Tartrate (Ambien Tab) 5 mg HSZ PRN PO 06/17/17 10:00 07/17/17 09:59 Multivitamins (Multivitamin Tab) 1 tab QAM PO 06/18/17 09:00 07/18/17 08:59 06/19/17 07:32 1 TAB Ondansetron HCl (Zofran Inj) 4 mg Q6H PRN IV 06/17/17 10:00 07/17/17 09:59 06/18/17 21:25 4 MG Ferrous Gluconate (Ferrous Gluconate Tab) 324 mg TIDM PO 06/17/17 17:45 07/17/17 17:44 06/19/17 19:03 324 MG Pantoprazole Sodium (Protonix Tab) 40 mg QAM PO 06/18/17 09:00 07/18/17 08:59 06/19/17 07:32 40 MG Aspirin (Ecotrin Tab) 81 mg BID PO 06/17/17 21:00 07/17/17 20:59 06/19/17 21:32 81 MG Glucose (Glucose 40% Gel) 15-30 GRAMS 15 GRAMS... UD PRN PO 06/17/17 13:00 07/17/17 12:59 Glucose (Glucose Chew Tab) 4-8 Tablets 4 Tabl... UD PRN PO 06/17/17 13:00 07/17/17 12:59 Dextrose (Dextrose 50% 50ML Syringe) 25-50ML OF 50% DW IV FOR... UD PRN IV 06/17/17 13:00 07/17/17 12:59 Glucagon (Glucagon Inj) 1 mg UD PRN SQ 06/17/17 13:00 07/17/17 12:59 Metoclopramide HCl (Reglan Inj) 10 mg Q6H PRN IV 06/18/17 11:30 07/18/17 11:29 06/18/17 11:35 10 MG
[2017-06-20 06:37] LABS: BASO % 0.4 %; BASO ABS # 0.02 K/uL (0-0.2); COMPLETE YES; EOS % 3.6 %; HEMATOCRIT 36.6 % (37-47); IG% 0.4 %; LYMPH % 22.3 %; LYMPH ABS # 1.04 K/uL (1.2-3.4); MEAN CELL VOLUME 95.1 fL (80-100); MEAN CORPUSCULAR HEMOGLOBIN 31.2 pg (25-34); MEAN CORPUSCULAR HGB CONC 32.8 g/dl (32-36); MEAN PLATELET VOLUME 10.4 fL (7.4-10.4); MONO % 6.9 %; NEUT % 66.4 %; PLATELET COUNT 192 K/uL (130-400); RED BLOOD COUNT 3.85 M/uL (4.2-5.4); WHITE BLOOD COUNT 4.66 K/uL (4.8-10.8)
[2017-06-20 07:13] VITALS: BP 129/81; PULSE 85; TEMP 36.7; O2SAT 94
[2017-06-20 07:23] LABS: BUN/CREATININE RATIO 13.6 (10-20); CALCIUM 8.1 mg/dl (8.5-10.1); CREATININE 0.64 mg/dl (0.60-1.20); POTASSIUM 4.2 mmol/L (3.5-5.1)
[2017-06-20] MEDS: FERROUS GLUCONATE 324 MG TAB PO SCH ×3 (08:40→18:05)
[2017-06-20] MEDS: CeleBREX 200 MG CAP PO SCH ×2 (08:41→20:37)
[2017-06-20] MEDS: PANTOprazole SOD 40 MG TAB PO SCH (08:41)
[2017-06-20] MEDS: DOCUSATE SODIUM 100 MG CAP PO SCH ×2 (08:42→20:37)
[2017-06-20] MEDS: ASPIRIN 81 MG ECTAB PO SCH ×2 (08:42→20:37)
[2017-06-20] MEDS: MULTIVITAMIN TAB PO SCH (08:42)
[2017-06-20] MEDS: INSULIN ASPART 100 UNITS/ML 3 ML PEN SC SCH ×4 (09:30→20:41)
[2017-06-20] MEDS: OXYCODONE HCL IR 5 MG TAB (IMMEDIATE RELEASE) PO PRN (09:35)
--- NOTE | 2017-06-20 14:20 | Orthopedic Progress Note ---
Orthopedic Progress Note Date of Service Jun 20, 2017. Subjective Post OP Day: 3 Reports: feeling well Objective N/V intact, dressing C/D/I (Prevena in place), toes mobile Date Time Temp Pulse Resp B/P (MAP) Pulse Ox O2 Delivery O2 Flow Rate FiO2 06/20/17 12:00 Room Air 06/20/17 07:13 36.7 85 19 129/81 (97) 94 Room Air 06/19/17 23:45 Room Air 06/19/17 23:35 36.7 83 18 135/85 (102) 94 Room Air 06/19/17 16:00 Room Air 06/19/17 15:36 36.8 87 18 136/84 (101) 97 Room Air Laboratory Results 24 Hours: Test 06/20/17 06:17 White Blood Count 4.66 K/uL Red Blood Count 3.85 M/uL Hemoglobin 12.0 g/dL Hematocrit 36.6 % Mean Corpuscular Volume 95.1 fL Mean Corpuscular Hemoglobin 31.2 pg Mean Corpuscular Hemoglobin Concent 32.8 g/dl Platelet Count 192 K/uL Mean Platelet Volume 10.4 fL Neutrophils (%) (Auto) 66.4 % Lymphocytes (%) (Auto) 22.3 % Monocytes (%) (Auto) 6.9 % Eosinophils (%) (Auto) 3.6 % Basophils (%) (Auto) 0.4 % Neutrophils # (Auto) 3.09 K/uL Lymphocytes # (Auto) 1.04 K/uL Monocytes # (Auto) 0.32 K/uL Eosinophils # (Auto) 0.17 K/uL Basophils # (Auto) 0.02 K/uL Assessment & Plan Assessment: POD #3, Left BRI, Abductor repair, placement wound vac Plan: PT/ OT- NO hip abduction exercises due to abductor repair DVT proph- ASA 81MG BID D/C planning- d/c to [place] on saturday MEDICAL MANAGEMENT Inhouse Planning Pain Management: Celebrex, Oxycontin, Morphine, PO Tylenol, Oxy IR DVT Prophylaxis: TEDs, SCDs, ASA Discharge Planning Discharge Planning: home with oppt Pain Management: Celebrex, Oxycontin, PO Tylenol, Oxy IR DVT Prophylaxis: TEDs, ASA Therapy: Physical Therapy, Occupational Therapy
[2017-06-20 15:53] VITALS: BP 112/69; PULSE 75; TEMP 36.6; O2SAT 98
[2017-06-20] MEDS: RANITIDINE HCL 150 MG TAB PO SCH (20:37)
[2017-06-20] MEDS: SENNA 8.6 MG TAB PO SCH (20:37)
[2017-06-20] MEDS: AMLODIPINE BESYLATE 5 MG TAB PO SCH (20:38)
[2017-06-20 23:08] VITALS: BP 122/78; PULSE 79; TEMP 36.7; O2SAT 96
[2017-06-21] MEDS: OXYCODONE HCL IR 5 MG TAB (IMMEDIATE RELEASE) PO PRN ×2 (00:40→07:58)
[2017-06-21 06:27] VITALS: BP 137/78; PULSE 81; TEMP 36.8; O2SAT 94
[2017-06-21 06:46] LABS: BASO % 0.4 %; BASO ABS # 0.02 K/uL (0-0.2); COMPLETE YES; EOS % 3.5 %; HEMATOCRIT 39.9 % (37-47); IG% 0.2 %; LYMPH % 34.5 %; LYMPH ABS # 1.79 K/uL (1.2-3.4); MEAN CELL VOLUME 93.9 fL (80-100); MEAN CORPUSCULAR HEMOGLOBIN 31.5 pg (25-34); MEAN CORPUSCULAR HGB CONC 33.6 g/dl (32-36); MEAN PLATELET VOLUME 10.6 fL (7.4-10.4); MONO % 6.6 %; NEUT % 54.8 %; PLATELET COUNT 268 K/uL (130-400); RED BLOOD COUNT 4.25 M/uL (4.2-5.4); WHITE BLOOD COUNT 5.19 K/uL (4.8-10.8)
[2017-06-21 07:08] LABS: CREATININE 0.9 mg/dl (0.60-1.20); POTASSIUM 4.3 mmol/L (3.5-5.1)
--- NOTE | 2017-06-21 07:33 | Orthopedic Progress Note ---
Orthopedic Progress Note Date of Service Jun 21, 2017. Subjective Post OP Day: 4 Reports: feeling well, Denies: complaints, chest pain, SOB, nausea / vomiting, light headedness, calf pain Objective calves soft nontender, N/V intact, hip located, dressing C/D/I (PREVENA), A&O x3 , toes mobile Date Time Temp Pulse Resp B/P (MAP) Pulse Ox O2 Delivery O2 Flow Rate FiO2 06/21/17 06:27 36.8 81 18 137/78 (97) 94 Room Air 06/21/17 00:15 Room Air 06/20/17 23:08 36.7 79 16 122/78 (93) 96 Room Air 06/20/17 15:53 36.6 75 18 112/69 (83) 98 Room Air 06/20/17 12:00 Room Air Laboratory Results 24 Hours: Test 06/21/17 06:18 White Blood Count 5.19 K/uL Red Blood Count 4.25 M/uL Hemoglobin 13.4 g/dL Hematocrit 39.9 % Mean Corpuscular Volume 93.9 fL Mean Corpuscular Hemoglobin 31.5 pg Mean Corpuscular Hemoglobin Concent 33.6 g/dl Platelet Count 268 K/uL Mean Platelet Volume 10.6 fL Neutrophils (%) (Auto) 54.8 % Lymphocytes (%) (Auto) 34.5 % Monocytes (%) (Auto) 6.6 % Eosinophils (%) (Auto) 3.5 % Basophils (%) (Auto) 0.4 % Neutrophils # (Auto) 2.85 K/uL Lymphocytes # (Auto) 1.79 K/uL Monocytes # (Auto) 0.34 K/uL Eosinophils # (Auto) 0.18 K/uL Basophils # (Auto) 0.02 K/uL Assessment & Plan Assessment: POD #4, Left BRI, Abductor repair, placement wound vac Plan: PT/ OT- NO hip abduction exercises due to abductor repair DVT proph- ASA 81MG BID D/C planning- d/c to [place] on saturday MEDICAL MANAGEMENT Inhouse Planning Pain Management: Celebrex, Oxycontin, Morphine, PO Tylenol, Oxy IR DVT Prophylaxis: TEDs, SCDs, ASA Discharge Planning Discharge Planning: [facility] (TRANSFER TO [place] TODAY) Pain Management: Celebrex, PO Tylenol, Oxy IR DVT Prophylaxis: TEDs, ASA Therapy: Physical Therapy, Occupational Therapy
[2017-06-21] MEDS ORDERED: ASPEC81 PO (07:36)
[2017-06-21] MEDS ORDERED: ONDA8TAB6 PO (07:36)
[2017-06-21] MEDS ORDERED: CLB200 PO (07:36)
[2017-06-21] MEDS ORDERED: RXC5 PO (07:36)
[2017-06-21] MEDS ORDERED: SNK PO (07:36)
--- NOTE | 2017-06-21 07:40 | Discharge Instructions ---
Discharge Instructions Date of Service Jun 21, 2017. Admission Reason for Admission: Left Hip Degenerative Joint Disease Discharge Discharge Diagnosis / Problem: SP LEFT BRI Discharge Goals Goal(s): Decrease discomfort, Improve function, Increase independence Activity Recommendations Activity Level: Assistance Required Therapies: Physical Therapy, Weight Bearing Status (WBAT WITH WALKER), Occupational Therapy . Additional Information Patient informed of condition: Yes Advance Directives: Yes DNR: No Level of Care: Skilled Communicable Disease: No Prognosis: Stable Instructions / Follow-Up Instructions / Follow-Up ACTIVITY RECOMMENDATIONS: SELF CARE INSTRUCTIONS AFTER TOTAL HIP REPLACEMENT Until the incision and soft tissues around your hip have healed, there is a possibility that the hip prosthesis could dislocate. A. Observe the following precautions to prevent dislocation: 1. Don't bend your hip greater than 90 degrees. 2. Avoid crossing your legs or ankles while standing or lying. 3. Sit with your feet placed 6 inches apart. 4. When sitting, keep your knees below your hips. Sit on a firm surface, avoid deep, soft chairs and couches. Use an elevated toilet seat in the bathroom. 5. Don't bend over at the waist. Use a long handled shoehorn and a sock aid to help you put on your shoes and socks. A curtain cutter hand can help you olive picker objects that are too high or too low to reach. 6. Keep car riding to a minimum for at least one month after surgery. B. Your balance may be shaky for a while. Use crutches or a walker until directed by your doctor. C. Use hand rails when walking on stairs. D. Wear low heeled shoes with non-slip soles. E. Be sure that your floors are free of things that could trip you - throw rugs , electrical cords, small objects. Avoid wet and waxed floors, especially with crutches and canes. F. Try to walk several times a day with rest periods between. G. Continue with all the exercises taught to you in the hospital. Again, make walking a part of your daily routine. SPECIAL CARE INSTRUCTIONS: VERY IMPORTANT TO READ AND REVIEW A. You may still be at risk for phlebitis and blood clots. 1. Wear surgical stockings (KENDY hose) for 2 weeks after surgery to improve circulation and reduce swelling. 2. Take Aspirin 81mg twice daily for 4 weeks or as directed by your doctor. This is your blood thinner. 3. High risk patients may be prescribed a stronger blood thinner if necessary. 4. If you are on Coumadin normally, your family doctor/back end architect should monitor your blood work. Expect a phone call the day of or the day after bloodwork is drawn to adjust your dosage. B. You must take antibiotics before having dental work, bladder, bowel and other surgery. Your doctor will provide you with a permanent card to carry describing precautions. C. Call [facility] if you have a fever, redness or swelling around the incision, cloudy drainage from incision, or sudden increase in pain in your hip, not relieved by your regular pain medication. D. Please call the office at if you have any concerns or questions about your operation or recovery. * YOU MAY SHOWER, NO TUB BATHS UNTIL CLEARED BY YOUR DOCTOR. * WEAR KENDY HOSE 20 HOURS PER DAY FOR 2 WEEKS. * YOU SHOULD USE A WALKER OR CRUTCHES FOR 2-4 WEEKS. THIS WILL HELP PREVENT STRAIN ON YOUR HIP MUSCLE AND ALLOW IT TO HEAL PROPERLY. YOU MAY WEAN TO A CANE TOLERATED. * MOST PATIENTS WILL HAVE HOME NURSING FOR THERAPY. IF YOU DECIDE TO DO OUTPATIENT PHYSICAL THERAPY, PLEASE SCHEDULE THIS 3 TIMES PER WEEK. Prevena- This is a large suction dressing covering your incision. This will help pull any excess drainage from the wound and allow your incision to heal properly. You may shower with this if you can keep the unit outside of the shower. If any bleeding or leakage is noted please call your doctor's office. This will remain on your incision for 7 days and then should be removed. This can be done yourself or by the home nursing staff if applicable. The entire unit is disposable once removed. Once removed, keep incision clean and dry. If redness or drainage is noted, please call your surgeon. FOLLOW UP VISIT: If appointment is not already scheduled: Please call [facility] to make a follow-up appointment for 2 weeks after your surgery at . Current Hospital Diet Patient's current hospital diet: Diabetes Type 2 Diet Discharge Diet Recommended Diet: Regular Diet Procedures Procedures Performed: Left Total Hip Arthroplasty--Uncemented with Repair of Chronic Abductor Tear Pending Studies Studies pending at discharge: no Laboratory Results Hemoglobin A1c Test 05/17/17 10:03 Range/Units Estimated Average Glucose 140 mg/dl Hemoglobin A1c 6.5 H 4.5-5.6 % Medical Emergencies . Who to Call and When: Medical Emergencies: If at any time you feel your situation is an emergency, please call 911 immediately. . Non-Emergent Contact Non-Emergency issues call your: Primary Care Provider . . "Provider Documentation" section prepared by Rhina Chandra. . Core Measure Problem Core Measures: None
[2017-06-21] MEDS: INSULIN ASPART 100 UNITS/ML 3 ML PEN SC SCH ×2 (07:54→12:34)
[2017-06-21] MEDS: MULTIVITAMIN TAB PO SCH (07:56)
[2017-06-21] MEDS: DOCUSATE SODIUM 100 MG CAP PO SCH (07:56)
[2017-06-21] MEDS: FERROUS GLUCONATE 324 MG TAB PO SCH ×2 (07:58→12:30)
[2017-06-21] MEDS: CeleBREX 200 MG CAP PO SCH (07:58)
[2017-06-21] MEDS: PANTOprazole SOD 40 MG TAB PO SCH (07:59)
[2017-06-21] MEDS: ASPIRIN 81 MG ECTAB PO SCH (07:59)
[2017-06-21 08:51] VITALS: BP 137/78; PULSE 81; TEMP 36.8; O2SAT 94
--- NOTE | 2017-06-27 15:27 | DISCHARGE SUMMARY ---
DISCHARGE DIAGNOSIS: Degenerative joint disease, left hip. SECONDARY DIAGNOSES: Hypertension, diabetes mellitus, osteoarthritis, sciatica, gastroesophageal reflux disease, hiatal hernia, and obesity. CONSULTS: Jodi Millard. COMPLICATIONS: None. PROCEDURES: Left total hip arthroplasty performed by Dr. Merchant on 06/17/2017. BRIEF HISTORY: As dictated in history and physical. HOSPITAL SUMMARY: The patient was admitted on the above date and had the above-noted surgery performed which she tolerated well. On her first postoperative day, she was feeling well, pain was controlled. She had no complaints. Calves were soft, nontender, neurovascularly intact. Cap refill is less than 2 seconds. Dressings were clean, dry and intact. Toes were mobile. Prevena wound VAC was in place. Her vital signs are stable. She is afebrile. Hemoglobin was 12.1 and she was started on physical therapy protocol and continued on DVT prophylaxis and pain management and medical management, per [facility] Hospitalist service. On her second postoperative day, she was feeling well and had no complaints. Calves were soft and nontender, neurovascularly intact, hip was located and a Prevena was intact. Toes were mobile. Vital signs were stable and she was afebrile and she was continued on her protocol. A referral was pending for [facility] and she was continued on her BRI protocol and medical management. The rest of her stay was essentially uneventful. She continue to remain medically stable as well as orthopedically stable. She had been approved for snf facility and by 06/21/2017, she was remaining stable and it was felt she could be discharged. For further review, please see chart. LABORATORY AND X-RAY DATA: As per chart. DISCHARGE INSTRUCTIONS: The patient was discharged to [facility] on 06/21/2017. ACTIVITY: Follow BRI instruction sheets and special care instructions. The patient to be weightbearing as tolerated with walker. The patient to have PT and OT protocols for BRI. DIET: Diabetic diet. FOLLOWUP: With Dr. Merchant in 2 weeks. The patient to call for appointment if one has not been made for you. DISCHARGE MEDICATIONS: Aspirin 81 mg p.o. b.i.d., Celebrex 200 mg p.o. b.i.d., Zofran 8 mg p.o. q. 8 hours p.r.n. nausea, oxycodone 5-10 mg p.o. q. 4 hours p.r.n., senna 17.2 mg p.o. at bedtime. Resume home meds as listed and stop taking Lortab.
== END 2017-06-21 13:15 | DRG 470 ==
LOC: C.ACU 05:16 → C.3E 10:06 → ENRESERV 10:50
PROVIDERS: ADMIT Orthopaedic Surgery Sports Medicine; ATTEND Orthopaedic Surgery Sports Medicine
PROC: 0SRB04Z Replacement of Left Hip Joint with Ceramic on Polyethylene Synthetic Substitute, Open Approach (ICD-10-PCS; principal; 2017-06-17 07:00)
PROC: 0LMK0ZZ Reattachment of Left Hip Tendon, Open Approach (ICD-10-PCS; principal; 2017-06-17 07:00)
DX: M16.12 Unilateral primary osteoarthritis, left hip (principal); S76.312A Strain of muscle, fascia and tendon of the posterior muscle group at thigh level, left thigh, initial encounter; M70.62 Trochanteric bursitis, left hip; I10 Essential (primary) hypertension; E11.9 Type 2 diabetes mellitus without complications; K44.9 Diaphragmatic hernia without obstruction or gangrene; K21.9 Gastro-esophageal reflux disease without esophagitis; M54.40 Lumbago with sciatica, unspecified side; M81.0 Age-related osteoporosis without current pathological fracture; E66.9 Obesity, unspecified; Z68.39 Body mass index [BMI] 39.0-39.9, adult; X58.XXXA Exposure to other specified factors, initial encounter; Z87.891 Personal history of nicotine dependence; Z79.1 Long term (current) use of non-steroidal anti-inflammatories (NSAID); Z79.83 Long term (current) use of bisphosphonates; Z79.84 Long term (current) use of oral hypoglycemic drugs; Z79.899 Other long term (current) drug therapy; Z88.0 Allergy status to penicillin; Z88.1 Allergy status to other antibiotic agents; Z88.8 Allergy status to other drugs, medicaments and biological substances; Z82.49 Family history of ischemic heart disease and other diseases of the circulatory system; Z83.3 Family history of diabetes mellitus

== ENCOUNTER → 2017-12-26 | Outpatient (CLI) | payer OTHER ==
[~2017-12-26] MED LIST changes: -ANTI ACID PO; +ASPEC81 PO; +CETI10TA84 PO; +CLB200 PO; -HYDR-4330 PO; +OMEP40CA41 PO; +OXYC1CAP5 PO; -PSEU-170 PO; +RXC5 PO; +SNK PO
[2017-12-26 17:56] LABS: BASO % 0.6 %; BASO ABS # 0.04 K/uL (0-0.2); EOS % 1.8 %; EOS ABS # 0.12 K/uL (0-0.5); HEMATOCRIT 42.3 % (37-47); HEMOGLOBIN 14.5 g/dL (12.0-16.0); IG# 0.02 K/uL (0.00-0.02); LYMPH % 25.5 %; LYMPH ABS # 1.66 K/uL (1.2-3.4); MEAN CELL VOLUME 91.6 fL (80-100); MEAN CORPUSCULAR HEMOGLOBIN 31.4 pg (25-34); MEAN CORPUSCULAR HGB CONC 34.3 g/dl (32-36); MEAN PLATELET VOLUME 11.1 fL (7.4-10.4); MONO ABS # 0.39 K/uL (0.11-0.59); NEUT % 65.8 %; NEUT ABS # 4.27 K/uL (1.4-6.5); PLATELET COUNT 258 K/uL (130-400); RED CELL DISTRIBUTION WIDTH CV 13.7 % (11.5-14.5)
[2017-12-26 18:10] LABS: BLOOD UREA NITROGEN 21 mg/dl (7-18); CALCIUM 10.2 mg/dl (8.5-10.1); CARBON DIOXIDE 21 mmol/L (21-32); CREATININE 0.91 mg/dl (0.60-1.20); GLUCOSE 122 mg/dl (70-99); POTASSIUM 3.9 mmol/L (3.5-5.1); SODIUM 136 mmol/L (136-145)
[2017-12-26 18:11] LABS: INR 0.9 (0.9-1.1); PTT PATIENT 23.1 SECONDS (21.0-31.0)
[2017-12-27 07:00] LABS: HEMOGLOBIN A1C 6.7 % (4.5-5.6)
== END | disposition home or self-care (01) ==
LOC: C.LABMFLN 14:28
PROVIDERS: ATTEND Orthopaedic Surgery Sports Medicine
DX: Z01.812 Encounter for preprocedural laboratory examination (principal)

== ENCOUNTER 2018-02-17 05:04 | Inpatient (IN) | payer OTHER ==
[2018-01-06 11:03] VITALS: BMI 40.0
[~2018-02-17] VITALS: Ht 152.4 cm; Wt 93.2 kg
[2018-02-17] VITALS (9 sets, daily range): BP systolic 113–160; BP diastolic 69–89; PULSE 62–81; TEMP 36.3–37; O2SAT 92–98
[~2018-02-17 05:04] MED LIST changes: -ASPEC81 PO; -CLB200 PO; -OMEP40CA PO; -RXC5 PO; -SNK PO
[2018-02-17] MEDS ORDERED: VANCOMYCIN IV 1,500 MG in SODIUM CHLORIDE 0.9% 500ML 500 ML IV SCH ×2 (06:00→18:00)
[2018-02-17] MEDS ORDERED: GABAPENTIN 300 MG CAP PO SCH (06:00)
[2018-02-17] MEDS ORDERED: METOCLOPRAMIDE HCL 10 MG TAB PO SCH (06:00)
[2018-02-17] MEDS ORDERED: ACETAMINOPHEN 500 MG TAB PO SCH (06:00)
[2018-02-17] MEDS ORDERED: LACTATED RINGER'S 1000ML 500 ML IV SCH (06:00)
[2018-02-17] MEDS ORDERED: LACTATED RINGER'S 1000ML 1,000 ML IV SCH (06:00)
[2018-02-17] MEDS ORDERED: CeleBREX 200 MG CAP PO SCH (06:00)
[2018-02-17] MEDS ORDERED: ROPIVACAINE 5MG/ML 30 ML 150 MG, BUPIVACAINE 0.5% MPF INJ 30 ML, EpINEphrine HCL INJ 0.... INFIL SCH ×7 (06:00)
[2018-02-17] MEDS ORDERED: FAMOTIDINE 20 MG TAB PO SCH (06:00)
[2018-02-17] MEDS ORDERED: FENTANYL CITRATE INJ 50 MCG/1 ML 2 ML VIAL ONE (06:19)
[2018-02-17] MEDS ORDERED: MIDAZOLAM HCL 1 MG/ML 2ML VIAL ONE (06:19)
[2018-02-17] MEDS ORDERED: BUPIVACAINE 0.5 % 5 MG/1 ML PF 10ML VIAL ONE (06:40)
[2018-02-17] MEDS ORDERED: ORTHO JOINT ANESTHETIC ONE (06:41)
[2018-02-17] MEDS ORDERED: POVIDONE-IODINE OP SOLN 30 ML BTL ONE (06:41)
[2018-02-17] MEDS ORDERED: BACITRACIN 50000 UNIT VIAL ONE (06:41)
[2018-02-17] MEDS: TRANEXAMIC ACID INJ 1,000 MG x 2 Bags IV SCH ×4 (06:53→11:24)
--- NOTE | 2018-02-17 07:02 | History and Physical ---
History & Physical Date February 17, 2018. Chief Complaint right hip pain weakness History of Present Illness The patient is a 68 year old female with complaints of chronic right hip pain, weakness ,decreased motion Past Medical/Surgical History Medical Problems: (1) Acid reflux (2) Diabetes mellitus (3) Hiatal hernia (4) HTN (hypertension) (5) left hip djd (6) Lumbar stenosis with neurogenic claudication (7) Obesity (BMI 30-39.9) (8) Osteoarthritis (9) Osteoporosis Surgical Problems: (1) Previous back surgery (2) S/P carpal tunnel release (3) S/P trigger finger release (4) S/P tubal ligation (5) Status post left partial knee replacement Additional History Endocrine Disorder: Yes Kidney Disease: No Hypertension: Yes Heart Disease: No Bleeding Tendencies: No Infectious Diseases: No Allergies Coded Allergies: Lisinopril (Verified Allergy, Mild, COUGH, 02/17/18) Cephalexin (Verified Allergy, Unknown, RASH, 02/17/18) Ciprofloxacin (Verified Allergy, Unknown, RASH, 02/17/18) Penicillins (Verified Allergy, Unknown, RASH, 02/17/18) Azithromycin (Verified Adverse Reaction, Unknown, DIARRHEA, STOMACH CRAMPS , 02/17/18) Home Medications Scheduled Alendronate/Cholecalciferol (Fosamax+D 70MG/2800 Iu), 1 TABLET PO WK Amlodipine (Norvasc), 10 MG PO QPM Biotin (Biotin 5000), 5,000 MCG PO QAM Calcium/Vitamin D (Os-[place] 500 Plus D), 1 TAB PO BID Cholecalciferol (Vitamin D3), 1 TAB PO QAM Cyanocobalamin (Vitamin B-12 1000 Mcg), 1,000 MCG PO QAM Cyclobenzaprine Hcl (Flexeril), 5 MG PO HS Fish Oil ([place]-3), 1 CAP PO BID Mixwbdqwfis-Jzejzpwijuz-Mny C- (Glucosamine Chondroitin), 1 TAB PO BID Metformin Hcl (Glucophage), 500 MG PO QPM Multivitamin (Multivitamin), 1 TAB PO QAM Omeprazole (Prilosec), 40 MG PO QAM Ranitidine (Zantac), 300 MG PO HS Scheduled PRN Cetirizine (Zyrtec), 10 MG PO QAM PRN for Nasal Congestion Oxycodone Hcl (Oxycodone Hcl), 1 CAP PO DAILY PRN for Pain Physical Examination Skin: warm/dry ENT: normal ENT inspection, pharynx normal Head: normocephalic Neck: supple Respiratory/Chest: lungs clear Cardiovascular: regular rate, rhythm, no murmur Abdomen / GI: normal bowel sounds Back: normal inspection Extremities: + pertinent finding (pain decreased rom right hip) Neurologic/Psych: no motor/sensory deficits Diagnosis end stage djd oa right hip, abductor tear andobesity Plan of Treatment right total hip replacement and abductor repair
[2018-02-17] MEDS ORDERED: PHENYLEPHRINE 100MCG/ML 5ML SYR IV PRN (07:30)
[2018-02-17] MEDS ORDERED: EpHEDrine SULFATE INJ 50 MG/ML AMP IV PRN (07:30)
[2018-02-17] MEDS ORDERED: ONDANSETRON INJ 2 MG/ML 2 ML VIAL IV PRN ×2 (07:30→10:30)
[2018-02-17] MEDS ORDERED: ATROPINE SULFATE 0.1 MG/ML 5ML SYR IV PRN (07:30)
[2018-02-17] MEDS ORDERED: PROPOFOL IV EMULSION 10 MG/ML 20 ML VIAL ONE ×2 (08:20→09:38)
[2018-02-17] MEDS ORDERED: LIDOCAINE HCL 2% 2 ML VIAL (20MG/ML) ONE (08:20)
[2018-02-17] MEDS ORDERED: ONDANSETRON INJ 2 MG/ML 2 ML VIAL ONE (08:20)
[2018-02-17] MEDS ORDERED: EpHEDrine SULFATE 50MG/5ML SYR ONE (08:24)
[2018-02-17] MEDS ORDERED: PHENYLEPHRINE 100MCG/ML 5ML SYR ONE (08:24)
--- NOTE | 2018-02-17 09:59 | [facility] Post Operative Brief Note ---
Immediate Operative Summary Operative Date February 17, 2018. 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 Post-Operative Diagnosis same as preoperative diagnosis Procedure(s) Performed Right Total Hip Arthroplasty Abductor Tendon Repair increased difficulty BMI 40.[address] Merchant Mud Jack Operator Surgeon(s) Larry Zarate PA-C Estimated Blood Loss 175ML Findings Consistent with Post-Op Diagnosis Specimens A. Right femoral head Drains 2 hemovac Anesthesia Type Spinal MAC Complication(s) none
[2018-02-17] MEDS: HYDROmorphone INJ 0.5 MG/0.5 ML SYR IV PRN ×3 (10:29→10:42)
[2018-02-17] MEDS ORDERED: MAGNESIUM HYDROXIDE SUSP 30 ML UDC PO PRN (10:30)
[2018-02-17] MEDS ORDERED: MoRPHine SULFATE 4 MG/ML 1 ML CARP\\VIAL IV PRN (10:30)
[2018-02-17] MEDS ORDERED: BISACODYL 10 MG SUPP PR PRN (10:30)
[2018-02-17] MEDS ORDERED: VANCOMYCIN CONSULT ACTIVE PRN (10:30)
[2018-02-17] MEDS ORDERED: TRAMADOL HCL 50 MG TAB PO PRN (10:30)
[2018-02-17] MEDS ORDERED: CETIRIZINE HCL 10 MG TAB PO PRN (10:30)
[2018-02-17] MEDS ORDERED: ZOLPIDEM TARTRATE 5 MG TAB PO PRN (10:30)
[2018-02-17] MEDS ORDERED: METOCLOPRAMIDE HCL INJ 5 MG/ML 2 ML VIAL IV PRN (10:30)
[2018-02-17] MEDS ORDERED: SOD PHOSPHATE/SOD BIPHOSPHATE ENEMA 132 ML BTL PR PRN (10:30)
--- NOTE | 2018-02-17 10:47 | DIAGNOSTIC IMAGING REPORT ---
AP PELVIS, CROSSTABLE LATERAL RIGHT HIP History: Right total hip arthroplasty. Degenerative arthritis. Postop. FINDINGS: The patient is status post a right total hip arthroplasty. The hardware is intact. No fracture or dislocation. Skin jaden and surgical drains are in place. Prior left total hip arthroplasty and spinal fusion hardware is noted. IMPRESSION: Right total hip arthroplasty. No evidence for hardware complication Electronically signed by: Kit Martin M.D. 02/17/2018 10:46 AM Dictated Date/Time: 02/17/2018 10:44 AM
--- NOTE | 2018-02-17 11:28 | Anesthesiology Progress Note ---
Anesthesia Post Op Note Date & Time February 17, 2018 at 11:28 Vital Signs Pain Intensity: 2 Vital Signs Past 12 Hours Date Time Temp Pulse Resp B/P (MAP) Pulse Ox O2 Delivery O2 Flow Rate FiO2 02/17/18 11:05 36.1 71 15 125/50 94 Nasal Cannula 2 02/17/18 10:55 69 12 114/53 92 Nasal Cannula 2 02/17/18 10:45 68 13 129/63 95 Nasal Cannula 2 02/17/18 10:35 73 13 121/44 97 Nasal Cannula 2 02/17/18 10:25 67 17 137/70 98 Nasal Cannula 2 02/17/18 10:17 36.5 69 18 136/65 95 Nasal Cannula 2 02/17/18 05:58 36.6 81 20 160/80 92 Room Air Notes Mental Status: alert / awake / arousable, participated in evaluation Pt Amnestic to Procedure: Yes Nausea / Vomiting: adequately controlled Pain: adequately controlled Airway Patency, RR, SpO2: stable & adequate BP & HR: stable & adequate Hydration State: stable & adequate Anesthetic Complications: no major complications apparent
[2018-02-17] MEDS ORDERED: GLUCAGON FOR INJ 1 MG VIAL IM PRN (11:45)
[2018-02-17] MEDS ORDERED: DEXTROSE 50% 50 ML SYR IV PRN (11:45)
[2018-02-17] MEDS ORDERED: GLUCOSE 40% GEL 15 GM TUBE PO PRN (11:45)
[2018-02-17] MEDS ORDERED: CARBOHYDRATES FOR HYPOGLYCEMIA PO PRN (11:45)
[2018-02-17] MEDS ORDERED: GLUCOSE 10 TABS/TUBE PO PRN (11:45)
[2018-02-17] MEDS: SODIUM CHLORIDE 0.9% 1000ML 1,000 ML IV SCH ×2 (11:48→23:33)
[2018-02-17] MEDS: INSULIN ASPART 100 UNITS/ML 3 ML PEN SC SCH ×3 (12:00→21:25)
--- NOTE | 2018-02-17 12:23 | Medical Consult ---
Consultation Date of Consultation: February 17, 2018. Attending Physician: Guido Merchant M.D. Reason for Consultation: Postop medical management History of Present Illness 68-year-old female who is S/P right total hip replacement today by Dr. Merchant. Postoperatively the patient is doing well. She reports she recently received pain medicine and is somewhat groggy from it. She reports her pain is well controlled. No numbness or tingling to lower extremities. She denies chest pain shortness of breath. No lightheadedness, dizziness, diaphoresis. She denies abdominal pain and nausea. She has not voided since surgery. Past Medical/Surgical History Medical Problems: (1) Acid reflux Status: Chronic (2) Diabetes mellitus Status: Chronic (3) Hiatal hernia Status: Chronic (4) HTN (hypertension) Status: Chronic (5) Lumbar stenosis with neurogenic claudication Status: Chronic (6) Obesity (BMI 30-39.9) Status: Chronic (7) Osteoarthritis Status: Chronic (8) Osteoporosis Status: Chronic Surgical Problems: (1) H/O ovarian cystectomy Status: Chronic (2) History of cataract surgery Status: Chronic (3) History of total left hip replacement Status: Chronic (4) Previous back surgery Status: Chronic (5) S/P carpal tunnel release Status: Chronic (6) S/P trigger finger release Status: Chronic (7) S/P tubal ligation Status: Chronic (8) Status post left partial knee replacement Status: Chronic Family History FH: HTN (hypertension) FATHER FH: diabetes mellitus MOTHER Social History Smoking Status: Former Smoker Alcohol Use: occasionally Allergies Coded Allergies: Lisinopril (Verified Allergy, Mild, COUGH, 02/17/18) Cephalexin (Verified Allergy, Unknown, RASH, 02/17/18) Ciprofloxacin (Verified Allergy, Unknown, RASH, 02/17/18) Penicillins (Verified Allergy, Unknown, RASH, 02/17/18) Azithromycin (Verified Adverse Reaction, Unknown, DIARRHEA, STOMACH CRAMPS , 02/17/18) Home Medications Zyrtec (Cetirizine HCl) 10 Mg Tab 10 Mg PO QAM PRN Oxycodone Hcl 5 Mg Cap 1 Cap PO DAILY PRN Prilosec (Omeprazole) 40 Mg Cap 40 Mg PO QAM Fosamax+D 70MG/2800 Iu (Alendronate Sodium/Vitamin D3) 70 Mg Tab 1 Tablet PO WK SATURDAYS Biotin 5000 (Biotin) 5 Mg Cap 5,000 Mcg PO QAM Zantac (Ranitidine HCl) 300 Mg Tab 300 Mg PO HS Flexeril (Cyclobenzaprine Hcl) 5 Mg Tab 5 Mg PO HS PRN Vitamin D3 (Cholecalciferol) 1,000 Unit Tab 1 Tab PO QAM Vitamin B-12 1000 Mcg (Cyanocobalamin) 1,000 Mcg Tab 1,000 Mcg PO QAM Glucosamine Chondroitin (Ynfdffqsorn-Yqoplyqgqfd-Pac C-) 1 Tab Tab 1 Tab PO BID Glucophage (Metformin Hcl) 500 Mg Tab 500 Mg PO QPM Norvasc (Amlodipine Besylate) 10 Mg Tab 10 Mg PO QPM [place]-3 (Fish Oil) 1 Ea Cap 1 Cap PO BID [place] 500 Plus D (Calcium/Vitamin D) Tab 1 Tab PO BID Multivitamin (Multivitamins) Tab 1 Tab PO QAM Current Inpatient Medications Current Inpatient Medications Medications (Trade) Dose Ordered Sig/[place] Route Start Time Stop Time Status Last Admin Dose Admin Hydromorphone HCl (Dilaudid Inj) 0.5 mg Q5M PRN IV 02/17/18 07:30 02/17/18 12:30 02/17/18 10:42 0.5 MG Ondansetron HCl (Zofran Inj) 4 mg ONE PRN IV 02/17/18 07:30 02/17/18 12:30 Ephedrine Sulfate (EpHEDrine SULFATE INJ) 5 mg Q5M PRN IV 02/17/18 07:30 02/17/18 12:30 Atropine Sulfate (Atropine Sulfate 0.1mg/ml Inj) 0.5 mg Q1M PRN IV 02/17/18 07:30 02/17/18 12:30 Phenylephrine HCl (Christiano-Synephrine 500MCG/5ML Syr) 100 mcg Q5M PRN IV 02/17/18 07:30 02/17/18 12:30 Amlodipine Besylate (Norvasc Tab) 10 mg QPM PO 02/17/18 21:00 03/19/18 20:59 Calcium/Vitamin D (Caltrate Plus Tab) 1 tab BID PO 02/17/18 21:00 03/19/18 20:59 Cetirizine HCl (zyrTEC TAB) 10 mg QAM PRN PO 02/17/18 10:30 03/19/18 10:29 Cholecalciferol (Vitamin D Tab) 1,000 inter.unit QAM PO 02/18/18 09:00 03/20/18 08:59 Cyanocobalamin (Vitamin B-12 Tab) 1,000 mcg QAM PO 02/18/18 09:00 03/20/18 08:59 Cyclobenzaprine HCl (Flexeril Tab) 5 mg HS PO 02/17/18 21:00 03/19/18 20:59 Pantoprazole Sodium (Protonix Tab) 40 mg QAM PO 02/18/18 09:00 03/20/18 08:59 Ranitidine HCl (zANTac TAB) 300 mg HS PO 02/17/18 21:00 03/19/18 20:59 Sodium Chloride 1,000 ml @ 100 mls/hr Q10H IV 02/17/18 10:16 02/18/18 10:15 02/17/18 11:48 100 MLS/HR Vancomycin HCl 1500 mg/Sodium Chloride 530 ml @ 200 mls/hr Q12H IV 02/17/18 18:00 02/17/18 20:38 Celecoxib (CeleBREX CAP) 200 mg BID PO 02/17/18 21:00 03/19/18 20:59 Oxycodone HCl (Roxicodone Immediate Rel Tab) 1 TABLET FOR PAIN RATING... Q4H PRN PO 02/17/18 10:30 03/03/18 10:29 Morphine Sulfate (MoRPHine SULFATE INJ) as needed Q2H PRN IV 02/17/18 10:30 03/03/18 10:29 Acetaminophen (Tylenol Tab) 1,000 mg Q8H PO 02/17/18 14:00 03/19/18 10:29 Magnesium Hydroxide (Milk Of Magnesia Susp) 30 ml Q6H PRN PO 02/17/18 10:30 03/19/18 10:29 Bisacodyl (Dulcolax Supp) 10 mg DAILY PRN RI 02/17/18 10:30 03/19/18 10:29 Sodium Biphosphate/ Sodium Phosphate (Fleet Enema) 132 ml DAILY PRN RI 02/17/18 10:30 03/19/18 10:29 Docusate Sodium (coLACE CAP) 100 mg BID PO 02/17/18 21:00 6/20/18 20:59 Diphenhydramine HCl (Benadryl Cap) 25 mg Q8H PRN PO 02/17/18 10:30 03/19/18 10:29 Zolpidem Tartrate (Ambien Tab) 5 mg HSZ PRN PO 02/17/18 10:30 03/19/18 10:29 Multivitamins (Multivitamin Tab) 1 tab QAM PO 02/18/18 09:00 03/20/18 08:59 Ondansetron HCl (Zofran Inj) 4 mg Q6H PRN IV 02/17/18 10:30 03/19/18 10:29 Metoclopramide HCl (Reglan Inj) 10 mg Q6H PRN IV 02/17/18 10:30 03/19/18 10:29 Tramadol HCl (Ultram Tab) 1 TABLET FOR PAIN RATING... Q4H PRN PO 02/17/18 10:30 03/19/18 10:29 Aspirin (Ecotrin Tab) 81 mg BID PO 02/17/18 21:00 03/19/18 20:59 Insulin Aspart (novoLOG ASPART) SLIDING SCALE G... ACHS SC 02/17/18 12:00 03/19/18 11:59 Glucose (Glucose 40% Gel) 15-30 GRAMS 15 GRAMS... UD PRN PO 02/17/18 11:45 03/19/18 11:44 Glucose (Glucose Chew Tab) 4-8 Tablets 4 Tabl... UD PRN PO 02/17/18 11:45 03/19/18 11:44 Dextrose (Dextrose 50% 50ML Syringe) 25-50ML 25ML FOR ... UD PRN IV 02/17/18 11:45 03/19/18 11:44 Glucagon (Glucagon Inj) 1 mg UD PRN IM 02/17/18 11:45 03/19/18 11:44 Carbohydrates (Carbohydrates For Hypoglycemia) 15-30 GRAMS 15 grams if BSG 54-69... UD PRN PO 02/17/18 11:45 03/19/18 11:44 Review of Systems ROS per HPI, all other systems reviewed and negative Physical Exam Date Time Temp Pulse Resp B/P (MAP) Pulse Ox O2 Delivery O2 Flow Rate FiO2 02/17/18 12:13 36.4 73 19 136/82 (100) 97 Nasal Cannula 2.0 02/17/18 11:45 36.5 69 14 131/80 (97) 95 Nasal Cannula 3.0 02/17/18 11:15 Nasal Cannula 3.0 02/17/18 11:15 36.4 79 14 120/69 (86) 95 Nasal Cannula 3.0 02/17/18 11:15 Nasal Cannula 3.0 02/17/18 11:05 36.1 71 15 125/50 94 Nasal Cannula 2 02/17/18 10:55 69 12 114/53 92 Nasal Cannula 2 02/17/18 10:45 68 13 129/63 95 Nasal Cannula 2 02/17/18 10:35 73 13 121/44 97 Nasal Cannula 2 02/17/18 10:25 67 17 137/70 98 Nasal Cannula 2 02/17/18 10:17 36.5 69 18 136/65 95 Nasal Cannula 2 02/17/18 05:58 36.6 81 20 160/80 92 Room Air General Appearance: WD/WN, no apparent distress Head: normocephalic, atraumatic Eyes: normal inspection, EOMI, sclerae normal ENT: hearing grossly normal, + pertinent finding (Mucous membranes moist) Neck: supple, no JVD, trachea midline Respiratory/Chest: lungs clear, normal breath sounds, no respiratory distress Cardiovascular: regular rate, rhythm, no edema, normal peripheral pulses Abdomen/GI: normal bowel sounds, non tender, soft, no organomegaly Extremities/Musculoskelatal: + pertinent finding (S/P right hip surgery, surgical dressing dry and intact, drain in place draining bloody drainage, CSM checks intact to right lower extremity) Neurologic/Psych: no motor/sensory deficits, alert, normal mood/affect, oriented x 3 Skin: normal color, warm/dry Laboratory Results Last 24 Hours Test 02/17/18 05:30 02/17/18 10:22 Bedside Glucose 149 mg/dl 178 mg/dl Assessment & Plan S/P RIGHT BRI - POD#0 - activity and wound care orders as per ortho - pain control with bowel regimen - PT/OT - monitor H/H for acute blood loss anemia and transfuse blood products PRN - EBL 175 mL DM TYPE II -Hgb A1c 6. -Hold metformin and utilize NovoLog per protocol while hospitalized HYPERTENSION -BP controlled, continue amlodipine DVT PROPHYLAXIS -Aspirin 81 mg twice daily as per orthopedics Thank you for this consultation. We will follow the patient with you during their hospital stay. You can reach a member of the [facility] Hospitalist Team 22/04 via pager @ . Attending Physician Dr. Vuong Addendum I have seen and examined the patient with MCKENZIE Macdonald and Mary and agree with the assessment and plan as above. 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 She is responsive to questions and speaks in full sentences. She is cooperative on physical exam. There is ice pack over the right hip and PIERCE drain. Patient should have CBC done to monitor for acute blood loss anemia. I do expect some decrease in her hemoglobin as she had estimated blood loss of 175 ml and a PIERCE drain. However she is hemodynamically stable. Denies chest pain or shortness of breath. Generally transfusion guideline would suggest to transfuse blood product if Hgb is less than 7 or higher threshold if patient has symptomatic anemia or active cardiac disease. Hospitalist Medicine will continue to follow with her.
[2018-02-17] MEDS: ACETAMINOPHEN 500 MG TAB PO SCH ×2 (13:49→21:20)
--- NOTE | 2018-02-17 14:55 | [facility] Operative Report ---
Operative Report Operative Date February 17, 2018. Pre-Operative Diagnosis End stage degenerative joint disease of right hip and abductor tear, obesity BMI 40.1 Post-Operative Diagnosis Same Procedure(s) Performed Right total hip arthroplasty, repair chronic abductor tear, increased difficulty morbid obesity BMI 40.[address] Merchant Family Engagement Specialist Surgeon(s) Larry Zarate PA-C Estimated Blood Loss 175ML Findings Chronic large abductor tear bone spurs greater trochanter chronic bursitis end- stage degenerative arthritis of the hip and obesity Specimens A. Right femoral head Drains 2 hemovac Anesthesia Spinal sedation orthomix Complication(s) None Disposition Recovery Room / PACU Indications Chronic pain weakness right hip. Radiographs demonstrate advanced osteoarthritis right hip. History of abductor tear in her opposite hip and has weakness with positive Trendelenburg test consistent with abductor tear right hip Description of Procedure Patient taken to the operating room and anesthetized under spinal anesthesia and sedation. Patient was placed supine on the operating table. Exam of the involved extremity demonstrated flexion of the hip only to 90 limited internal rotation to about 10 limited abduction to 30. The patient had an obese thigh and leg. The patient was placed on a sacral pad and the involved leg was placed on a foot bump to flex knee 90 and hip 60. Bed was placed in some Trendelenburg to drain the pelvic veins tilted to the left hip exposed the right hip. A Laura-type approach was performed to the right hip. A longitudinal lateral incision was made over the hip. The skin was incised sharply. The fat was divided down to the fascia. Subcutaneous bleeders are cauterized. The fascia zac was divided longitudinally and the gluteus jas fascia was split proximally. This revealed a large abductor tear of the gluteus medius with partial splitting of the vastus lateralis and 50% of the gluteus medius being torn off the greater trochanter with chronic thickened trochanteric bursitis. The trochanteric bursa was resected. A split was made in the gluteus medius muscle between the anterior 40% and posterior 60% in line with the edge of the posterior most aspect of the abductor tear leaving what remained of the posterior gluteus medius attached to the greater trochanter. The minimus was divided longitudinally reflected off the underlying capsule. The capsule was incised down to the hip joint. The vastus lateralis was split longitudinally a few more centimeters extending the already torn fascia for further exposure. A muscular capsular flap was elevated off the hip. The hip was dislocated with use of bone hook and with flexion and external rotation of the hip. The femoral neck cut was made approximately 15 mm proximal to the lesser trochanter in neutral anteversion. Head and neck fragment were removed. The femoral head demonstrated osteophytic changes femoral neck osteophytes articular wear. A self-retaining superior tractor was impacted into the ilium, a blunt Alana retractor was placed anteriorly a double angled inferior retractor was placed on the ischium. The acetabulum demonstrated concentric type wear with a large hypertrophic labrum and rimming osteophytes. The acetabular labrum was resected all osteophytes were resected.The soft tissue in the acetabular fossa was resected. An anterior capsular release was performed. Some the capsule was resected for exposure. The first reamer was used to medialize reaming to the inner table and then sequential reamers for the acetabulum were used in 2 mm increments up to a size 50 mm. I used the Globili total hip arthroplasty system using a PSL type cup. Trial reduction demonstrated a 50 millimeter cup was the appropriate size and fit. The placement of the final implant was performed after irrigating the acetabulum with antibiotic solution with pulsatile lavage. The position of the cup was approximately 15 anteversion 45 abduction. Good fixation was performed. Two 6.5 mm cancellus screws were placed in the posterior superior quadrant for further fixation through the cup. The acetabular liner was impacted into position. The X 3 poly-36 mm E acetabular liner was used.The Orthomix coctail injected into the capsule around the acetabular component and deeper muscles. The retractors removed and attention was taken to the femur. The femur was exposed with flexion external rotation. A Canal reamer was used followed by sequential tapered Accolade 2 broaches up to a size 4. This had a good fit and fill. Trial reduction was performed with a 127 neck angle based on preoperative templating. A -5 neck length gave equal leg lengths and stable range of motion through full flexion flexion adduction and internal rotation and extension and external rotation. The trials removed and after irrigation again and the final implant was impacted which was the Accolade 2 size 4. The Biolox ceramic head size 36 mm -5 neck length was used. After final implants replaced the reduction was noted to be stable. Betadine soak was used per protocol. 2 drains were placed deep. These were brought out laterally and connected to Hemovac. The wound was further copiously irrigated with pulsatile lavage antibiotic solution. Orthomix was injected into the muscle and deep fascia and subcutaneous tissues. the minimus was closed with interrupted figure- of-eight #1 Vicryl sutures. The medius was closed with transosseous #5 FiberWire sutures using Pravin Darren suture technique. Lateral row soft tissue repair was performed with figure of 8 #2 FiberWire sutures. The medius split was closed with interrupted [id number] #1 Vicryl sutures. The vastus lateralis was closed with interrupted figure of eight #1Vicryl sutures. The fascia zac was closed with interrupted figure of eight #1 Vicryl sutures. The fat was closed with [id number] #2 Vicryl sutures to close the space. 2-0 Vicryl sutures used more superficially in the fat. Skin was closed with jaden and a Provena superficial wound VAC was applied. There is increased difficulty with exposure and perform the procedure due to her obesity. The patient tolerated procedure well. Larry Zarate my physician news assistant assisted me in the procedure with patient positioning And draping soft tissue retraction instrument management suture management and assisted in the outer layer closure and will participate in the postoperative care the patient. I attest to the content of the Intraoperative Record and any orders documented therein. Any exceptions are noted below.
[2018-02-17] MEDS: AMLODIPINE BESYLATE 5 MG TAB PO SCH (21:19)
[2018-02-17] MEDS: DOCUSATE SODIUM 100 MG CAP PO SCH (21:19)
[2018-02-17] MEDS: CeleBREX 200 MG CAP PO SCH (21:19)
[2018-02-17] MEDS: CALCIUM 600MG + VIT D 400 IU TAB PO SCH (21:19)
[2018-02-17] MEDS: CYCLOBENZAPRINE HCL 5 MG TAB PO SCH (21:19)
[2018-02-17] MEDS: ASPIRIN 81 MG ECTAB PO SCH (21:19)
[2018-02-17] MEDS: RANITIDINE HCL 150 MG TAB PO SCH (21:20)
[2018-02-18] VITALS (7 sets, daily range): BP systolic 99–142; BP diastolic 56–75; PULSE 66–76; TEMP 36.5–36.8; O2SAT 90–99
[2018-02-18] MEDS: ACETAMINOPHEN 500 MG TAB PO SCH ×3 (06:08→21:33)
[2018-02-18 06:09] LABS: BASO % 0.5 %; BASO ABS # 0.03 K/uL (0-0.2); EOS % 3.4 %; EOS ABS # 0.19 K/uL (0-0.5); HEMATOCRIT 33.1 % (37-47); HEMOGLOBIN 11.1 g/dL (12.0-16.0); LYMPH % 15.9 %; LYMPH ABS # 0.89 K/uL (1.2-3.4); MEAN CELL VOLUME 92.2 fL (80-100); MEAN CORPUSCULAR HEMOGLOBIN 30.9 pg (25-34); MEAN CORPUSCULAR HGB CONC 33.5 g/dl (32-36); MEAN PLATELET VOLUME 10.9 fL (7.4-10.4); MONO % 7.2 %; NEUT ABS # 4.07 K/uL (1.4-6.5); PLATELET COUNT 185 K/uL (130-400); RED CELL DISTRIBUTION WIDTH CV 12.9 % (11.5-14.5); RED CELL DISTRIBUTION WIDTH SD 43.5 fL (36.4-46.3); WHITE BLOOD COUNT 5.58 K/uL (4.8-10.8)
[2018-02-18] MEDS: OXYCODONE HCL IR 5 MG TAB (IMMEDIATE RELEASE) PO PRN ×2 (06:13→21:33)
[2018-02-18] MEDS: SODIUM CHLORIDE 0.9% 1000ML 1,000 ML IV SCH (06:16)
[2018-02-18 06:48] LABS: CALCIUM 8.4 mg/dl (8.5-10.1); CREATININE 0.67 mg/dl (0.60-1.20); POTASSIUM 3.7 mmol/L (3.5-5.1)
--- NOTE | 2018-02-18 07:37 | Anesthesiology Progress Note ---
Anesthesia Post Op Note Date & Time February 18, 2018 at 07:37 Vital Signs Pain Intensity: 2.5 Vital Signs Past 12 Hours Date Time Temp Pulse Resp B/P (MAP) Pulse Ox O2 Delivery O2 Flow Rate FiO2 02/18/18 03:25 36.7 76 16 99/61 (74) 93 Room Air 02/17/18 23:38 Room Air 02/17/18 23:30 36.8 71 18 113/73 (86) 92 Room Air Notes Mental Status: alert / awake / arousable, participated in evaluation Pt Amnestic to Procedure: Yes Nausea / Vomiting: adequately controlled, see Notes Pain: adequately controlled Airway Patency, RR, SpO2: stable & adequate BP & HR: stable & adequate Hydration State: stable & adequate Neuraxial Anesthesia: was administered, sensory block resolved Anesthetic Complications: no major complications apparent N & V postoperatively controlled with antiemetics. No current c/o N/V.
--- NOTE | 2018-02-18 08:13 | Orthopedic Progress Note ---
Orthopedic Progress Note Date of Service February 18, 2018. Subjective Post OP Day: 1 Reports: feeling well, pain controlled w PO medications, Denies: complaints, chest pain, SOB, nausea / vomiting, light headedness, calf pain Objective calves soft nontender, N/V intact, hip located, capillary refill less than 2 sec., dressing C/D/I, A&O x3, toes mobile + Provena. Date Time Temp Pulse Resp B/P (MAP) Pulse Ox O2 Delivery O2 Flow Rate FiO2 02/18/18 07:56 36.7 68 20 132/68 (89) 92 Room Air 02/18/18 03:25 36.7 76 16 99/61 (74) 93 Room Air 02/17/18 23:38 Room Air 02/17/18 23:30 36.8 71 18 113/73 (86) 92 Room Air 02/17/18 19:31 37.0 62 18 136/74 (94) 98 Nasal Cannula 2.0 02/17/18 16:15 Room Air 02/17/18 15:00 36.3 70 16 147/79 (101) 96 Nasal Cannula 2.0 02/17/18 14:15 36.3 70 14 131/76 (94) 94 Nasal Cannula 2.0 02/17/18 13:09 36.4 70 16 132/89 (103) 94 Nasal Cannula 2.0 02/17/18 12:13 36.4 73 19 136/82 (100) 97 Nasal Cannula 2.0 02/17/18 11:45 36.5 69 14 131/80 (97) 95 Nasal Cannula 3.0 02/17/18 11:15 Nasal Cannula 3.0 02/17/18 11:15 36.4 79 14 120/69 (86) 95 Nasal Cannula 3.0 02/17/18 11:15 Nasal Cannula 3.0 02/17/18 11:05 36.1 71 15 125/50 94 Nasal Cannula 2 02/17/18 10:55 69 12 114/53 92 Nasal Cannula 2 02/17/18 10:45 68 13 129/63 95 Nasal Cannula 2 02/17/18 10:35 73 13 121/44 97 Nasal Cannula 2 02/17/18 10:25 67 17 137/70 98 Nasal Cannula 2 02/17/18 10:17 36.5 69 18 136/65 95 Nasal Cannula 2 Laboratory Results 24 Hours: Test 02/18/18 05:19 White Blood Count 5.58 K/uL Red Blood Count 3.59 M/uL Hemoglobin 11.1 g/dL Hematocrit 33.1 % Mean Corpuscular Volume 92.2 fL Mean Corpuscular Hemoglobin 30.9 pg Mean Corpuscular Hemoglobin Concent 33.5 g/dl Platelet Count 185 K/uL Mean Platelet Volume 10.9 fL Neutrophils (%) (Auto) 73.0 % Lymphocytes (%) (Auto) 15.9 % Monocytes (%) (Auto) 7.2 % Eosinophils (%) (Auto) 3.4 % Basophils (%) (Auto) 0.5 % Neutrophils # (Auto) 4.07 K/uL Lymphocytes # (Auto) 0.89 K/uL Monocytes # (Auto) 0.40 K/uL Eosinophils # (Auto) 0.19 K/uL Basophils # (Auto) 0.03 K/uL Assessment & Plan Assessment: POD #1, Right BRI Plan: PT/ OT DVT proph- ASA D/C planning- Home w OPPT As per medicine. Attending Addendum: I have seen and examined the patient, and agree with JENNIFER Zarate's assessment and plan. Emery Agarwal MD Inhouse Planning Pain Management: Celebrex, Ultram, Morphine, PO Tylenol, Oxy IR DVT Prophylaxis: TEDs, SCDs, ASA Discharge Planning Discharge Planning: home with oppt Pain Management: Celebrex, PO Tylenol, Oxy IR DVT Prophylaxis: TEDs, ASA Therapy: Physical Therapy, Occupational Therapy
[2018-02-18] MEDS: CHOLECALCIFEROL 1000 INTER.UNIT TAB PO SCH (08:50)
[2018-02-18] MEDS: PANTOprazole SOD 40 MG TAB PO SCH (08:50)
[2018-02-18] MEDS: ASPIRIN 81 MG ECTAB PO SCH ×2 (08:50→21:04)
[2018-02-18] MEDS: CALCIUM 600MG + VIT D 400 IU TAB PO SCH ×2 (08:50→21:22)
[2018-02-18] MEDS: MULTIVITAMIN TAB PO SCH (08:50)
[2018-02-18] MEDS: DOCUSATE SODIUM 100 MG CAP PO SCH ×2 (08:50→21:23)
[2018-02-18] MEDS: CYANOCOBALAMIN 500 MCG TAB (VIT B-12) PO SCH (08:50)
[2018-02-18] MEDS: CeleBREX 200 MG CAP PO SCH ×2 (08:50→21:22)
[2018-02-18] MEDS: INSULIN ASPART 100 UNITS/ML 3 ML PEN SC SCH ×4 (08:52→21:00)
[2018-02-18] MEDS ORDERED: NON-FORMULARY MEDICATION (Biotin (Biotin 5000) 5,000 MCG) PO SCH (09:00)
[2018-02-18] MEDS ORDERED: PANTOprazole SOD 40 MG TAB PO SCH (09:00)
--- NOTE | 2018-02-18 15:00 | Progress Note ---
Internal Med Progress Note Date of Service: February 18, 2018. Provider Documentation: SUBJECTIVE: Seen and examined at bedside Reports right hip pain with ambulation, controlled Denies chest pain, SOB, dizziness No other complaints no BM yet OBJECTIVE: Vital Signs-as noted below Physical Exam: General Appearance:Moderately built and nourished, no apparent distress Head: normocephalic, Atraumatic Eyes: normal inspection, EOMI, PERRL Neck: supple, Trachea midline Respiratory/Chest: Normal breath sounds, CTA Cardiovascular: S1, S2, No murmur Abdomen/GI:Soft, Non tender, Bowel sounds present Extremities/Musculoskelatal:normal inspection, no edema, Right hip S/P surgery, +drain Neurologic/Psych:AAOX3, grossly no focal neurological deficits Skin: normal color, warm Lab data as noted below. ASSESSMENT & PLAN: S/P Right BRI POD # 1 Pain is controlled Continue PT/OT, wound care Continue bowel regimen to prevent constipation PT/OT DM II A1C:6.7 Hold Po meds continue ISS, basal Insulin monitor BGs HTN: Stable continue amlodipine GERD: continue PPI DVT Px: as per orthopedics Code Status: Full Code Disposition: As per Primary Team Vital Signs: Date Time Temp Pulse Resp B/P (MAP) Pulse Ox O2 Delivery O2 Flow Rate FiO2 02/18/18 14:56 36.6 66 18 103/56 (72) 96 Room Air 02/18/18 11:47 36.8 68 20 128/74 (92) 92 Room Air 02/18/18 08:20 92 Room Air 02/18/18 07:56 36.7 68 20 132/68 (89) 92 Room Air 02/18/18 07:15 Room Air 02/18/18 03:25 36.7 76 16 99/61 (74) 93 Room Air 02/17/18 23:38 Room Air 02/17/18 23:30 36.8 71 18 113/73 (86) 92 Room Air 02/17/18 19:31 37.0 62 18 136/74 (94) 98 Nasal Cannula 2.0 02/17/18 16:15 Room Air Lab Results: Results Past 24 Hours Test 02/17/18 17:17 02/17/18 20:32 02/18/18 05:19 02/18/18 08:02 Range/Units Bedside Glucose 182 222 170 70-90 mg/dl White Blood Count 5.58 4.8-10.8 K/uL Red Blood Count 3.59 4.2-5.4 M/uL Hemoglobin 11.1 12.0-16.0 g/dL Hematocrit 33.1 37-47 % Mean Corpuscular Volume 92.2 80-100 fL Mean Corpuscular Hemoglobin 30.9 25-34 pg Mean Corpuscular Hemoglobin Concent 33.5 32-36 g/dl Platelet Count 185 130-400 K/uL Mean Platelet Volume 10.9 7.4-10.4 fL Neutrophils (%) (Auto) 73.0 % Lymphocytes (%) (Auto) 15.9 % Monocytes (%) (Auto) 7.2 % Eosinophils (%) (Auto) 3.4 % Basophils (%) (Auto) 0.5 % Neutrophils # (Auto) 4.07 1.4-6.5 K/uL Lymphocytes # (Auto) 0.89 1.2-3.4 K/uL Monocytes # (Auto) 0.40 0.11-0.59 K/uL Eosinophils # (Auto) 0.19 0-0.5 K/uL Basophils # (Auto) 0.03 0-0.2 K/uL RDW Standard Deviation 43.5 36.4-46.3 fL RDW Coefficient of Variation 12.9 11.5-14.5 % Immature Granulocyte % (Auto) 0.0 % Immature Granulocyte # (Auto) 0.00 0.00-0.02 K/uL Sodium Level 141 136-145 mmol/L Potassium Level 3.7 3.5-5.1 mmol/L Chloride Level 111 98-107 mmol/L Carbon Dioxide Level 23 21-32 mmol/L Anion Gap 7.0 3-11 mmol/L Blood Urea Nitrogen 11 7-18 mg/dl Creatinine 0.67 0.60-1.20 mg/dl Est Creatinine Clear Calc Drug Dose 80.8 ml/min Estimated GFR () 103.9 Estimated GFR (Non- 89.7 BUN/Creatinine Ratio 15.8 10-20 Random Glucose 123 70-99 mg/dl Calcium Level 8.4 8.5-10.1 mg/dl Test 02/18/18 11:49 Range/Units Bedside Glucose 134 70-90 mg/dl
[2018-02-18] MEDS ORDERED: INSULIN GLARGINE SOLOSTAR 100 UNITS/ML 3 ML PEN SC SCH (21:00)
[2018-02-18] MEDS: CYCLOBENZAPRINE HCL 5 MG TAB PO SCH (21:04)
[2018-02-18] MEDS: RANITIDINE HCL 150 MG TAB PO SCH (21:04)
[2018-02-18] MEDS: AMLODIPINE BESYLATE 5 MG TAB PO SCH (21:23)
[2018-02-19] MEDS: ACETAMINOPHEN 500 MG TAB PO SCH ×2 (05:21→13:13)
[2018-02-19] MEDS ORDERED: TRANEXAMIC ACID INJ 1,000 MG x 2 Bags IV SCH ×2 (06:00)
[2018-02-19] MEDS ORDERED: ACETAMINOPHEN 500 MG TAB PO SCH (06:00)
[2018-02-19] MEDS ORDERED: CeleBREX 200 MG CAP PO SCH (06:00)
[2018-02-19] MEDS ORDERED: METOCLOPRAMIDE HCL 10 MG TAB PO SCH (06:00)
[2018-02-19] MEDS ORDERED: VANCOMYCIN IV 1,500 MG in SODIUM CHLORIDE 0.9% 500ML 500 ML IV SCH (06:00)
[2018-02-19] MEDS ORDERED: ROPIVACAINE 5MG/ML 30 ML 150 MG, BUPIVACAINE 0.5% MPF INJ 30 ML, EpINEphrine HCL INJ 0.... INFIL SCH ×7 (06:00)
[2018-02-19] MEDS ORDERED: GABAPENTIN 300 MG CAP PO SCH (06:00)
[2018-02-19] MEDS ORDERED: LACTATED RINGER'S 1000ML 500 ML IV SCH (06:00)
[2018-02-19] MEDS ORDERED: FAMOTIDINE 20 MG TAB PO SCH (06:00)
[2018-02-19 06:40] VITALS: BP 126/80; PULSE 68; TEMP 36.6; O2SAT 92
--- NOTE | 2018-02-19 06:49 | Orthopedic Progress Note ---
Orthopedic Progress Note Date of Service February 19, 2018. Subjective Post OP Day: 2 Reports: feeling well, pain controlled w PO medications, Denies: complaints, chest pain, SOB, nausea / vomiting, light headedness, calf pain Additional Notes: AM LABS PENDING Objective calves soft nontender, N/V intact, hip located, capillary refill less than 2 sec., dressing C/D/I, A&O x3, toes mobile PROVENA IN TACT Date Time Temp Pulse Resp B/P (MAP) Pulse Ox O2 Delivery O2 Flow Rate FiO2 02/19/18 06:40 36.6 68 18 126/80 (95) 92 Room Air 02/18/18 23:31 Nasal Cannula 2.0 02/18/18 22:43 36.6 74 18 142/75 (97) 90 Room Air 02/18/18 19:17 36.5 75 16 112/63 (79) 99 Room Air 02/18/18 15:55 Room Air 02/18/18 14:56 36.6 66 18 103/56 (72) 96 Room Air 02/18/18 11:47 36.8 68 20 128/74 (92) 92 Room Air 02/18/18 08:20 92 Room Air 02/18/18 07:56 36.7 68 20 132/68 (89) 92 Room Air 02/18/18 07:15 Room Air Laboratory Results 24 Hours: Test 02/19/18 05:58 Assessment & Plan Assessment: POD #2, Right BRI Plan: PT/ OT DVT proph- ASA D/C planning- Home TODAY As per medicine. Inhouse Planning Pain Management: Celebrex, Ultram, Morphine, PO Tylenol, Oxy IR DVT Prophylaxis: TEDs, SCDs, ASA Discharge Planning Discharge Planning: home with oppt Pain Management: Celebrex, PO Tylenol, Oxy IR DVT Prophylaxis: TEDs, ASA Therapy: Physical Therapy, Occupational Therapy
[2018-02-19] MEDS ORDERED: ACET-24 PO (06:52)
[2018-02-19] MEDS ORDERED: ASPI-320 PO (06:52)
[2018-02-19] MEDS ORDERED: CLB200 PO (06:52)
[2018-02-19] MEDS ORDERED: RXC5 PO (06:52)
--- NOTE | 2018-02-19 06:53 | Discharge Instructions ---
Discharge Instructions Date of Service February 19, 2018. Admission Reason for Admission: Right Hip Osteoarthritis Discharge Discharge Diagnosis / Problem: RIGHT BRI Discharge Goals Goal(s): Improve function Activity Recommendations Activity Limitations: as noted below . Instructions / Follow-Up Instructions / Follow-Up ACTIVITY RECOMMENDATIONS: SELF CARE INSTRUCTIONS AFTER TOTAL HIP REPLACEMENT Until the incision and soft tissues around your hip have healed, there is a possibility that the hip prosthesis could dislocate. A. Observe the following precautions to prevent dislocation: 1. Don't bend your hip greater than 90 degrees. 2. Avoid crossing your legs or ankles while standing or lying. 3. Sit with your feet placed 6 inches apart. 4. When sitting, keep your knees below your hips. Sit on a firm surface, avoid deep, soft chairs and couches. Use an elevated toilet seat in the bathroom. 5. Don't bend over at the waist. Use a long handled shoehorn and a sock aid to help you put on your shoes and socks. A endodontist can help you continuous pickling line pickler objects that are too high or too low to reach. 6. Keep car riding to a minimum for at least one month after surgery. B. Your balance may be shaky for a while. Use crutches or a walker until directed by your doctor. C. Use hand rails when walking on stairs. D. Wear low heeled shoes with non-slip soles. E. Be sure that your floors are free of things that could trip you - throw rugs , electrical cords, small objects. Avoid wet and waxed floors, especially with crutches and canes. F. Try to walk several times a day with rest periods between. G. Continue with all the exercises taught to you in the hospital. Again, make walking a part of your daily routine. SPECIAL CARE INSTRUCTIONS: VERY IMPORTANT TO READ AND REVIEW A. You may still be at risk for phlebitis and blood clots. 1. Wear surgical stockings (KENDY hose) for 2 weeks after surgery to improve circulation and reduce swelling. 2. Take Aspirin 81mg twice daily for 4 weeks or as directed by your doctor. This is your blood thinner. 3. High risk patients may be prescribed a stronger blood thinner if necessary. 4. If you are on Coumadin normally, your family doctor/relay motorman should monitor your blood work. Expect a phone call the day of or the day after bloodwork is drawn to adjust your dosage. B. You must take antibiotics before having dental work, bladder, bowel and other surgery. Your doctor will provide you with a permanent card to carry describing precautions. C. Call [facility] if you have a fever, redness or swelling around the incision, cloudy drainage from incision, or sudden increase in pain in your hip, not relieved by your regular pain medication. D. Please call the office at if you have any concerns or questions about your operation or recovery. * YOU MAY SHOWER, NO TUB BATHS UNTIL CLEARED BY YOUR DOCTOR. * WEAR KENDY HOSE 20 HOURS PER DAY FOR 2 WEEKS. * YOU SHOULD USE A WALKER OR CRUTCHES FOR 2-4 WEEKS. THIS WILL HELP PREVENT STRAIN ON YOUR HIP MUSCLE AND ALLOW IT TO HEAL PROPERLY. YOU MAY WEAN TO A CANE TOLERATED. * MOST PATIENTS WILL HAVE HOME NURSING FOR THERAPY. IF YOU DECIDE TO DO OUTPATIENT PHYSICAL THERAPY, PLEASE SCHEDULE THIS 3 TIMES PER WEEK. * YOU MAY HAVE A LARGE, BAND-ROMAIN LIKE DRESSING (SILVERON). THIS WILL REMAIN ON YOUR INCISION FOR 7 DAYS, THEN CAN BE REMOVED. IF INCISION IS LEAKING THROUGH DRESSING, PLEASE CALL THE OFFICE . FOLLOW UP VISIT: If appointment is not already scheduled: Please call [facility] to make a follow-up appointment for 2 weeks after your surgery at . REMOVE YOUR WOUND VAC 1 WEEK POST OP AND DISCARD ALL PARTS Current Hospital Diet Patient's current hospital diet: Diabetes Type 2 Diet Discharge Diet Recommended Diet: Diabetes Type 2 Diet Procedures Procedures Performed: Right Total Hip Arthroplasty Abductor Tendon Repair increased difficulty BMI 40.1 Pending Studies Studies pending at discharge: no Laboratory Results Hemoglobin A1c Test 12/26/17 14:33 Range/Units Estimated Average Glucose 146 mg/dl Hemoglobin A1c 6.7 H 4.5-5.6 % Medical Emergencies . Who to Call and When: Medical Emergencies: If at any time you feel your situation is an emergency, please call 911 immediately. . Non-Emergent Contact Non-Emergency issues call your: Primary Care Provider . "Provider Documentation" section prepared by Larry Zarate. . [place] Drug Monitoring Program Search Results: patient reviewed within database, no issues identified
[2018-02-19 06:57] LABS: BASO % 0.8 %; BASO ABS # 0.04 K/uL (0-0.2); EOS % 4.2 %; EOS ABS # 0.22 K/uL (0-0.5); HEMATOCRIT 34.6 % (37-47); HEMOGLOBIN 11.6 g/dL (12.0-16.0); IG# 0.01 K/uL (0.00-0.02); LYMPH ABS # 1.26 K/uL (1.2-3.4); MEAN CELL VOLUME 93.5 fL (80-100); MEAN CORPUSCULAR HEMOGLOBIN 31.4 pg (25-34); MEAN CORPUSCULAR HGB CONC 33.5 g/dl (32-36); MEAN PLATELET VOLUME 11.3 fL (7.4-10.4); MONO % 6.5 %; MONO ABS # 0.34 K/uL (0.11-0.59); NEUT % 64.3 %; NEUT ABS # 3.39 K/uL (1.4-6.5); PLATELET COUNT 184 K/uL (130-400); RED CELL DISTRIBUTION WIDTH CV 13.1 % (11.5-14.5); RED CELL DISTRIBUTION WIDTH SD 44.3 fL (36.4-46.3); WHITE BLOOD COUNT 5.26 K/uL (4.8-10.8)
[2018-02-19 07:31] LABS: CALCIUM 8.4 mg/dl (8.5-10.1); CREATININE 0.84 mg/dl (0.60-1.20); POTASSIUM 3.8 mmol/L (3.5-5.1)
[2018-02-19] MEDS: INSULIN ASPART 100 UNITS/ML 3 ML PEN SC SCH ×2 (07:31→12:19)
[2018-02-19] MEDS: CALCIUM 600MG + VIT D 400 IU TAB PO SCH (07:31)
[2018-02-19] MEDS: CHOLECALCIFEROL 1000 INTER.UNIT TAB PO SCH (07:31)
[2018-02-19] MEDS: MULTIVITAMIN TAB PO SCH (07:32)
[2018-02-19] MEDS: ASPIRIN 81 MG ECTAB PO SCH (07:32)
[2018-02-19] MEDS: PANTOprazole SOD 40 MG TAB PO SCH (07:32)
[2018-02-19] MEDS: DOCUSATE SODIUM 100 MG CAP PO SCH (07:32)
[2018-02-19] MEDS: CeleBREX 200 MG CAP PO SCH (07:32)
[2018-02-19] MEDS: CYANOCOBALAMIN 500 MCG TAB (VIT B-12) PO SCH (07:33)
[2018-02-19 09:34] VITALS: BP 126/80; PULSE 68; TEMP 36.6; O2SAT 92
[2018-02-19 12:01] VITALS: Ht 152.4 cm; Wt 93.2 kg
[2018-02-19] MEDS: OXYCODONE HCL IR 5 MG TAB (IMMEDIATE RELEASE) PO PRN (12:17)
== END 2018-02-19 14:23 | disposition home or self-care (01) | DRG 470 ==
LOC: C.ACU 05:04 → C.3E 06:48 → ENRESERV 10:40
PROVIDERS: ADMIT Orthopaedic Surgery Sports Medicine; ATTEND Orthopaedic Surgery Sports Medicine
PROC: 0KQQ0ZZ Repair Right Upper Leg Muscle, Open Approach (ICD-10-PCS; principal; 2018-02-17 07:00)
PROC: 0SR903Z Replacement of Right Hip Joint with Ceramic Synthetic Substitute, Open Approach (ICD-10-PCS; principal; 2018-02-17 07:00)
DX: M16.11 Unilateral primary osteoarthritis, right hip (principal); Z68.41 Body mass index [BMI] 40.0-44.9, adult; S76.811A Strain of other specified muscles, fascia and tendons at thigh level, right thigh, initial encounter; M70.61 Trochanteric bursitis, right hip; E11.9 Type 2 diabetes mellitus without complications; K21.9 Gastro-esophageal reflux disease without esophagitis; I10 Essential (primary) hypertension; M81.0 Age-related osteoporosis without current pathological fracture; E66.01 Morbid (severe) obesity due to excess calories; Z79.899 Other long term (current) drug therapy; Z79.84 Long term (current) use of oral hypoglycemic drugs; Z96.642 Presence of left artificial hip joint; Z88.8 Allergy status to other drugs, medicaments and biological substances; Z88.1 Allergy status to other antibiotic agents; Z88.0 Allergy status to penicillin; Z82.49 Family history of ischemic heart disease and other diseases of the circulatory system; Z83.3 Family history of diabetes mellitus; X58.XXXA Exposure to other specified factors, initial encounter

== ENCOUNTER → 2018-05-21 | Outpatient (CLI) | payer OTHER ==
[~2018-05-21] MED LIST changes: +ACET-24 PO; -AMLO-114 PO; +AMLO10TA3 PO; +ASPI-320 PO; +CLB200 PO; -OMEG10007 PO; -OXYC1CAP5 PO; +RXC5 PO
== END | disposition home or self-care (01) ==
LOC: C.RDSM 15:18
PROVIDERS: ATTEND Orthopaedic Surgery Sports Medicine
DX: M25.562 Pain in left knee (principal)

== ENCOUNTER 2019-03-12 08:48 | Inpatient (IN) ==
--- NOTE | 2019-02-13 10:03 | Anesthesiology Consultation ---
Date of Service February 13, 2019 Assessment & Plan (1) Encounter for pre-operative examination: Chart Review Chart Review: Acceptable Risk for Surgery and Patient seen in Pre Admission Testing Consults Requested medical (Dr. Olvera (02/24)) Patient was seen by PCPs office on 02/27/19 for preoperative evaluation. Per note from that visit, "Patient is medically cleared." Teaching & Discussion Pre-Anesthesia Teaching/Discussion Notes: Instructed NPO after midnight before surgery, except medications with 15 cc of water. Medication instructions provided according to the PAT guidelines. History Surgery Operation Date: 03/12/19 07:15 Proposed Procedures p Left Knee Uni-Compartment Replacement Converted to Total Knee Arthroplasty - Guido Merchant MD Height/Weight Height: 5 ft Weight: 95.3 kg Allergies Allergy/AdvReac Type Severity Reaction Status Date / Time lisinopril Allergy Mild COUGH Verified 02/09/19 13:21 cephalexin Allergy Unknown RASH Verified 02/09/19 13:21 Cipro Allergy Unknown RASH Verified 02/17/18 05:47 ciprofloxacin Allergy Unknown RASH Verified 02/09/19 13:21 Penicillins Allergy Unknown RASH Verified 02/09/19 13:21 azithromycin AdvReac Mild Nausea and Verified 02/13/19 10:09 Diarrhea mivacurium AdvReac Unknown DIARRHEA, Verified 02/09/19 13:21 STOMACH CRAMPS Medications Home Medications Medication Instructions Recorded Confirmed Last Taken acetaminophen [Tylenol Arthritis 650 mg PO Q12H PRN 02/09/19 02/09/19 Unknown Pain] alendronate 70 mg PO WK 02/09/19 02/09/19 Unknown amlodipine 10 mg PO QAM 02/09/19 02/09/19 Unknown aspirin 81 mg PO QAM 02/09/19 02/09/19 Unknown biotin 5 mg PO QAM 02/09/19 02/09/19 Unknown calcium carbonate-vitamin D3 1 tab PO BID 02/09/19 02/09/19 Unknown [Calcium 500 + D] cyanocobalamin (vitamin B-12) 1,000 mcg PO QAM 02/09/19 02/09/19 Unknown cyclobenzaprine 5 mg PO HS 02/09/19 02/09/19 Unknown glucos sul [id number]-C-Mn 1 cap PO QAM 02/09/19 02/09/19 Unknown [Glucosamine Chondroitin] metformin 750 mg PO QAM 02/09/19 02/09/19 Unknown multivitamin 1 cap PO QAM 02/09/19 02/09/19 Unknown omeprazole 40 mg PO QAM 02/09/19 02/09/19 Unknown ranitidine HCl 300 mg PO HS 02/09/19 02/09/19 Unknown gabapentin 300 mg PO BID PRN 02/13/19 02/13/19 Unknown omega 4-zzm-vxf-fish oil [Fish Oil] 1 cap PO QAM 02/13/19 02/13/19 Unknown Past Medical History Medical History Chronic back pain Diabetes mellitus, type 2 GERD (gastroesophageal reflux disease) Hiatal hernia Hypertension Osteoarthritis Pulmonary nodule Exercise / Class Metabolic Activity III < 4 Walking/Shop/Light housework (Short walks, house work. Has stairs in her house and can do them if she has to, but doesn't because she doesn't feel safe with her knee. Denies chest pain or SOB, but admits she doesn't do alot. ) Past Surgical History Surgical History Fusion of spine X2. LUMBAR 11/14/16 - MAC #3, ETT #7.5, Oral, Grade 1 View, Easy Placement, Atraumatic History of appendectomy History of bilateral tubal ligation History of carpal tunnel release LEFT History of laparoscopy EXCISION OF CYST (DONE AT SAME TIME APPE) History of total hip arthroplasty B/L History of total knee replacement LEFT PARTIAL KNEE REPLACEMENT Nausea and vomiting after administration of anesthetic agent Status post trigger finger release Left 1, Right 2nd Past Anesthesia History No Hx of Anesthesia Complications and No Family Hx of Anesthesia Complications History of PONV History of PONV and Hx of Motion Sickness Social History Smoking Status: Former smoker tobacco type: cigarettes Smoking cigarettes per day: ~1/2PPD INTERMITTENTLY X 10 YEARS Do You Dip or Chew Tobacco: No Smoking End Date: QUIT ~30 YEARS AGO Hx Alcohol Use: Yes Alcohol type: beer and other alcohol intake frequency: holidays/special occasions only Hx Substance Use: No substance use type: does not use Review of Systems Patient denies chest pain, shortness of breath, dyspnea on exertion, cough, wheezing, palpitations. +Joint Pain (Knee, shoulder) +Acid Reflux (Controlled with current medications and diet) Physical Exam Vital Signs BP: 111/72 P: 67 R: 16 T: 98.1 SPO2: 97% on RA Constitutional + morbidly obese ENMT Mouth: + dentures (Full set upper and lower dentures) and + edentulous Thyromental Distance: > or= 3.5 Finger Breadths (3.5) Mallampati Class: II Neck normal visual inspection and + thick neck; neck extension not limited Respiratory normal respiratory effort Auscultation: lungs clear to auscultation bilaterally Cardiovascular Rate/Rhythm: regular rate and regular rhythm Heart Sounds: no murmur Vessels: no carotid bruit Neurologic moves all extremities Psychiatric Orientation: alert and oriented x 3 Testing Laboratory Results 02/13/19 10:55 02/13/19 10:55 02/13/19 02/13/19 02/13/19 10:55 10:55 Unknown PT 9.8 INR 1.0 APTT 23.2 Urine Color Yellow Urine Appearance Clear Urine pH 5.5 Ur Specific [place] 1.013 Urine Protein Negative Urine Glucose (UA) Negative Urine Ketones Negative Urine Nitrite Positive A Ur Leukocyte Esterase Trace H Urine WBC (Auto) 5-10 H Urine RBC (Auto) 0-4 U Hyaline Cast (Auto) 0 U Epithel Cells (Auto) 20-30 H Urine Bacteria (Auto) 4+ H Blood Type O Positive Antibody Screen NEGATIVE 02/13/19 Unknown Urine Culture - Final Urine,Clean Catch Escherichia coli Surgeon's office made aware of UTI. Electrocardiogram Date: 02/13/19 Findings: + NSR @ (67) and + no change from (10/17/16) Other Testing CT Chest wo Contrast 07/15/18 FINDINGS (Abbreviated - See full report under diagnostics) Mediastinum and Bette: Stable mildly enlarged mediastinal lymph nodes. Lungs: Stable lung nodules. Largest nodule is located in the middle lobe in the subpleural location measuring approximately 3x9mm. No change from 2015. There is mosaic attenuation of lungs with areas of ground glass haziness. There is some air trapping on expiratory phase images. Peripheral reticulation seen. Mild bronchiectatic changes. No significant honeycombing. Stable cyst along the lateral aspect of the left major fissure. Vessels: Atherosclerotic changes in the aorta and coronary arteries. Mitral annular calcification. Dilated main pulmonary artery measuring up to 3.7cm. Upper Abdomen: Moderate hiatal hernia. IMPRESSION: 1. No significant change from prior CT. No new suspicious nodules.
--- NOTE | 2019-02-13 10:06 | PAT Medication Instructions ---
Medication Instructions Date of Service February 13, 2019 Home Medications acetaminophen [Tylenol Arthritis] 650 mg PO Q12H NEEDED amlodipine 10 mg PO QAM aspirin 81 mg PO QAM biotin 5 mg PO QAM calcium carbonate-vitamin D3 1 tab PO BID cyclobenzaprine 5 mg PO HS glucos sul [id number]-ywh-[id number]-C-Mn [Glucosamine Chondroitin] 1 cap PO QAM metformin 750 mg PO QAM multivitamin 1 cap PO QAM omeprazole 40 mg PO QAM ranitidine HCl 300 mg PO HS gabapentin 300 mg PO BID NEEDED omega 1-gtj-ofi-fish oil [Fish Oil] 1 cap PO QAM ASK your surgeon for instructions Naproxen STOP taking 2 weeks before surgery biotin 5 mg PO QAM glucos sul [id number]-zie-[id number]-C-Mn [Glucosamine Chondroitin] 1 cap PO QAM omega 9-nuk-wtm-fish oil [Fish Oil] 1 cap PO QAM DO NOT take the morning of surgery calcium carbonate-vitamin D3 1 tab PO BID metformin 750 mg PO QAM multivitamin 1 cap PO QAM Take morning of surgery With a small sip of water, OTHERWISE NOTHING TO EAT OR DRINK AFTER MIDNIGHT: acetaminophen [Tylenol Arthritis] 650 mg PO Q12H NEEDED (if needed) amlodipine 10 mg PO QAM aspirin 81 mg PO QAM omeprazole 40 mg PO QAM gabapentin 300 mg PO BID NEEDED (if needed) Take evening before surgery acetaminophen [Tylenol Arthritis] 650 mg PO Q12H NEEDED (if needed) calcium carbonate-vitamin D3 1 tab PO BID cyclobenzaprine 5 mg PO HS ranitidine HCl 300 mg PO HS gabapentin 300 mg PO BID NEEDED (if needed) Other Notes If you have any questions please call us at [phone] or [phone] or [phone] or [phone]
[2019-02-13 11:59] LABS: Basophils # (auto) 0.03 K/uL (0-0.2); Basophils % (auto) 0.7 %; Eosinophils # (auto) 0.22 K/uL (0-0.5); Eosinophils % (auto) 4.9 %; Hematocrit (blood only) 42.1 % (37-47); Hemoglobin 14.6 g/dL (12.0-16.0); Immature Granulocytes # (auto) 0.01 K/uL (0.00-0.02); Immature Granulocytes % (auto) 0.2 %; Lymphocytes # (auto) 1.44 K/uL (1.2-3.4); Lymphocytes % (auto) 31.9 %; Mean Corpuscular Hgb Conc 34.7 g/dL (32-36); Mean Corpuscular Volume 92.3 fL (80-100); Mean Platelet Volume 11.5 fL (7.4-10.4); Monocytes # (auto) 0.33 K/uL (0.11-0.59); Monocytes % (auto) 7.3 %; Neutrophils # (auto) 2.48 K/uL (1.4-6.5); Platelet Count 212 K/uL (130-400); RDW Coefficient of Variation 13.2 % (11.5-14.5); RDW Standard Deviation 44.2 fL (36.4-46.3); Red Blood Count 4.56 M/uL (4.2-5.4); White Blood Count 4.51 K/uL (4.8-10.8)
[2019-02-13 12:09] LABS: BUN Creatinine Ratio 23.5 (10-20); Calcium 9.2 mg/dl (8.5-10.1); Creatinine Clr Calc Pharmacy 63.6 ml/min; Est GFR (African American) 80.5; Est GFR (Non-African American) 69.4; Potassium 4.1 mmol/L (3.5-5.1)
[2019-02-13 12:17] LABS: Appearance Urine Clear (Clear); Bacteria Urine Automated 4+ (Negative); Bilirubin Urine Negative (Negative); Blood Urine Negative (Negative); Cast Urine Automated 0 /lpf (0-5); Color Urine Yellow; Epithelial Cell Urine Auto 20-30 /lpf (0-5); Glucose Urine UA Negative (Negative); Ketones Urine Negative (Negative); Leukocyte Esterase Urine Trace (Negative); Nitrite Urine Positive (Negative); Protein Urine Negative (Negative); RBC Urine Automated 0-4 /hpf (0-4); Specific Gravity Urine 1.013 (1.000-1.030); Urobilinogen Urine Negative (Negative); pH Urine 5.5 (4.5-7.5)
[2019-02-13 12:23] LABS: Partial Thromboplastin Ratio 0.9; Partial Thromboplastin Time 23.2 Seconds (21.0-31.0); Prothrombin Time 9.8 Seconds (9.0-12.0)
--- NOTE | 2019-03-10 17:41 | History and Physical Report ---
DATE OF ADMISSION: 03/12/2019 CHIEF COMPLAINT: Chronic left knee pain. HISTORY OF PRESENT ILLNESS: This is a 69-year-old female patient of Dr. Merchant'pablo complaining of chronic left knee pain, longstanding, now progressively getting worse. The patient had a unicompartmental knee replacement in 2004. Since then, she has had chronic pain and failed conservative treatment including steroid injections, the use of anti-inflammatories and the use of a cane. She now wishes to proceed with a left revision unicompartmental knee arthroplasty to a total knee arthroplasty. PAST MEDICAL HISTORY: Hypertension. She does have a spot on her lung that is being observed, she has had it for 3 years. Diabetes mellitus, osteoarthritis, spine problems, sciatica, acid reflux, hiatal hernia, obesity. SOCIAL HISTORY: Nonsmoker, occasional drinker. PAST SURGICAL HISTORY: Right hip, left hip, back surgery, left hand, carpal tunnel surgery, trigger finger surgery and left knee unicompartmental replacement. FAMILY HISTORY: Noncontributory. REVIEW OF SYSTEMS: Chronic left knee pain. Otherwise, denies any shortness of breath, chest pain, nausea, vomiting or any other joint complaints. MEDICATIONS: 1. Omeprazole 40 mg daily. 2. Metformin 500 mg daily. 3. Amlodipine 10 mg daily. 4. Alendronate 70 mg weekly. 5. Calcium 600 plus D daily. 6. [place] 3 daily. 7. Cyclobenzaprine 5 mg daily. 8. Multivitamin daily. ALLERGIES: INCLUDE AMOXICILLIN, AZITHROMYCIN, CEPHALEXIN AND LISINOPRIL. PHYSICAL EXAMINATION: GENERAL: Well-developed, well-nourished 68-year-old female, in no acute distress. She is alert and oriented x3 and pleasant. HEENT: Normocephalic, atraumatic. Extraocular motions are intact. Pupils equal and reactive to light. HEART: Regular rate and rhythm. No murmurs. LUNGS: Clear. ABDOMEN: Soft and nontender. Bowel sounds present. EXTREMITIES: Left knee reveals limited range of motion of 0-120 degrees. She has a varus deformity, medial tenderness. She has a mild effusion. She does have instability occasionally. She has 5/5 strength with pain. ASSESSMENT: 1. She has hypertension. She has a spot on her lungs that is being observed. She has had it for 3 years. 2. Diabetes mellitus, osteoarthritis, spine problems, sciatica, acid reflux, hiatal hernia, obesity. PLAN: The patient was advised of her diagnosis. Indications, risks, benefits, postop course have all been reviewed. The patient wished to proceed with a left knee unicompartmental arthroplasty to total knee arthroplasty. Necessary consent forms, preoperative testing and clearances will be obtained.
[~2019-03-12 08:48] MED LIST changes: -ACET-24 PO; +ACETAMINOPHEN 500 MG TAB PO SCH; -AMLO10TA3 PO; -ASPI-320 PO; -BIOTCAP2 PO; +BUPIVACAINE 0.5 % 5 MG/1 ML PF 10ML VIAL ONE; -CALC500C70 PO; +CEFAZOLIN 2000MG 2,000 MG/15 ML SYR IV SCH; -CETI10TA84 PO; -CHOL1000 PO; -CLB200 PO; -CYAN10004 PO; -CYCL5TAB PO; +CeleBREX 200 MG CAP PO SCH; +FAMOTIDINE 20 MG TAB PO SCH; -FSMD/70 PO; +GABAPENTIN 300 MG PO SCH; -GLC/500 PO; -GLUCTAB7 PO; +LIDOCAINE HCL 2% 2 ML VIAL/AMP(20MG/ML) INFIL ONE; +LR 500ML BOLUS, THEN 15ML/HR IV SCH; +METOCLOPRAMIDE HCL 10 MG TABLET PO SCH; +MIDAZOLAM HCL 1 MG/ML 2ML VIAL ONE; -MULT-506 PO; -OMEP40CA41 PO; +PROPOFOL IV EMULSION 10 MG/ML 20 ML VIAL IV ONE; -RANI300T2 PO; +ROPIVACAINE 0.5% 5 MG/ML 30 ML VIAL ONE; +ROPIVACAINE 0.5% HCL/PF 150 MG, BUPIVACAINE 0.5% MPF 30 ML, EPINEPHrine 30MG/30ML (OR U... INFIL SCH; -RXC5 PO; +TRANEXAMIC ACID 1,000 MG **IV Intra-op IV SCH; +TRANEXAMIC ACID 1,000 MG **IV Pre-op IV SCH; +VANCOMYCIN HCL 1,500 MG in SODIUM CHLORIDE 0.9% 500 ML IV SCH; +ePHEDrine sulfate 50 MG/ML SYR ONE; +fentaNYL citrate 100 MCG/2 ML VIAL ONE
[2019-03-12] MEDS ORDERED: ONDANSETRON INJ 2 MG/ML 2 ML VIAL IV PRN ×2 (09:07→16:39)
[2019-03-12] MEDS ORDERED: ATROPINE SULFATE 0.1 MG/ML 10ML SYR IV PRN (09:07)
[2019-03-12] MEDS ORDERED: fentaNYL citrate 100 MCG/2 ML VIAL IV PRN (09:07)
[2019-03-12] MEDS ORDERED: ePHEDrine sulfate 50 MG/ML AMP IV PRN (09:07)
[2019-03-12] MEDS ORDERED: HYDROmorphone INJ 1 MG/ML SYRINGE IV PRN (09:07)
[2019-03-12] MEDS ORDERED: PHENYLEPHRINE 100MCG/ML 5ML SYR IV PRN (09:07)
[2019-03-12] MEDS ORDERED: PROPOFOL IV EMULSION 10 MG/ML 20 ML VIAL IV ONE ×4 (09:25→14:35)
--- NOTE | 2019-03-12 09:32 | History & Physical Bridge Note ---
Date of Service March 12, 2019 History & Physical Bridge Note I have examined the patient, reviewed the History & Physical and in the interval since the performance of the History & Physical I have noted the following changes of clinical significance: no changes noted
[2019-03-12] MEDS ORDERED: SCOPOLAMINE 1.5 MG TDSY TD ONE (09:42)
[2019-03-12] MEDS ORDERED: BACITRACIN INJ 50,000 UNIT VIAL ONE (11:40)
[2019-03-12] MEDS ORDERED: ORTHO JOINT ANESTHETIC ONE (11:40)
[2019-03-12] MEDS ORDERED: KETAMINE HCL INJ 50 MG/ML 10 ML VIAL ONE (14:19)
--- NOTE | 2019-03-12 15:10 | Post Operative Brief Note ---
Immediate Post Op Note v1 Date of Surgery March 12, 2019 Pre & Post Diagnosis Operation Date: 03/12/19 11:25 Pre-Op Diagnosis: LEFT KNEE OSTEOARTHRITIS patellofemoral and lateral compartment advanced status post prior medial unicompartmental knee replacement Post-Op Diagnosis: Same, polyethylene wear of the tibial component but no loosening and no signs of infection Procedure Operation Date: 03/12/19 11:25 Actual Procedures p Left Knee Uni-Compartment Replacement Converted to Total Knee Arthroplasty(Left) - Guido Merchant MD Surgeon Guido Merchant MD Director Of Religious Life Larry RODRIGUEZ Estimated Blood Loss 10 Findings Consistent with Post-Op Diagnosis Specimens Frozen section and culture and implants Drains Xie Catheter and Hemovac Drain Anesthesia Type Spinal MAC Complications none Disposition Accompanied Patient To Recovery: No Disposition: Recovery Room Overlapping Procedure I was present for: the critical portions of procedure.
--- NOTE | 2019-03-12 15:43 | XRay Report ---
XR knee LT 2V routine CLINICAL HISTORY: Postoperative evaluation. COMPARISON: Left knee radiographs May 21, 2018. FINDINGS: Alignment of the total left knee arthroplasty is anatomic. There is no fracture or unexpec roseann radiopaque foreign body. Skin jaden and drains are present. IMPRESSION: Expected findings following total left knee arthroplasty. Electronically signed by: Fritz Pedro M.D. 03/12/2019 3:42 PM
--- NOTE | 2019-03-12 15:54 | Anesthesiology Progress Note ---
Date of Service March 12, 2019 Anesthesia Post Procedure Vital Signs Vital Signs: Temp Pulse Pulse Resp BP Pulse Ox 03/12/19 15:50 98.2 F 76 18 146/83 H 95 03/12/19 15:40 79 15 138/80 100 03/12/19 15:33 97.9 F 83 12 100/83 100 03/12/19 09:58 98.4 F 78 20 136/72 94 Pain Intensity Left Knee: Pain Intensity: 6 Transfer of Care Handoff Completed per policy Notes Mental Status: alert / awake / arousable and participated in evaluation Patient Amnestic to Procedure: Yes Nausea / Vomiting: adequately controlled Pain: adequately controlled Airway Patency, RR, SpO2: stable & adequate BP & HR: stable & adequate Hydration State: stable & adequate Neuraxial Anesthesia: was administered and sensory block is resolving Anesthetic Complications: no major complications apparent and Pt Satisfied with anesthetic care
[2019-03-12] MEDS ORDERED: CHECK SCOPOLAMINE PATCH PLACEMENT SCH (16:00)
[2019-03-12] MEDS ORDERED: NALOXONE HCL 0.4 MG/1 ML VIAL/CARP IV PRN (16:39)
[2019-03-12] MEDS ORDERED: GABAPENTIN 300 MG CAP PO PRN (16:39)
[2019-03-12] MEDS ORDERED: BISACODYL 10 MG SUPP PR PRN (16:39)
[2019-03-12] MEDS ORDERED: HYDROmorphone INJ 0.5 MG/0.5 ML SYR IV PRN (16:39)
[2019-03-12] MEDS ORDERED: MAGNESIUM HYDROXIDE SUSP 30 ML UDC PO PRN (16:39)
[2019-03-12] MEDS ORDERED: VANCOMYCIN HCL 1,500 MG in SODIUM CHLORIDE 0.9% 250 ML IV SCH (16:39)
[2019-03-12] MEDS ORDERED: VANCOMYCIN CONSULT ACTIVE PRN (16:39)
[2019-03-12] MEDS ORDERED: PHARMACY GLYCEMIC MGMT CONSULT PRN (16:52)
[2019-03-12] MEDS: SODIUM CHLORIDE 0.9% 1000ML 1,000 ML IV SCH (17:06)
[2019-03-12] MEDS: OXYCODONE HCL IR 5 MG TAB (IMMEDIATE RELEASE) PO PRN (17:06)
[2019-03-12] MEDS: FERROUS GLUCONATE 324 MG TAB PO SCH (17:07)
[2019-03-12] MEDS ORDERED: INSULIN ASPART 100 UNITS/ML 3 ML PEN SC SCH (17:30)
--- NOTE | 2019-03-12 18:13 | Consultation ---
Date of Consultation March 12, 2019 Assessment & Plan (1) Status post left knee replacement: This is a 69yo F with a PMH of DM II, bronchiectasis, pulmonary fibrosis, HTN and GERD who is POD#[address] Merchant. -POD#0 s/p uni-compartmental left knee replacement converted to TKA by Dr. Merchant -Pt is doing well post-operatively -Per ortho for pain control, wound care, anticoagulation and activities -Monitor H&H (pre-op hgb of 14.6). EBL 10 ml -Continue incentive spirometry, PT/OT when appropriate (2) Hypertension: Normotensive -Continue amlodipine (3) Diabetes mellitus, type 2: A1c of 7.3 on December 2018 -Hold home agents -SSI while in-patient -BSG AC HS (4) Bronchiectasis: Stable. Follows with Dr. Ivan kwong in [place] -Also with pulmonary nodule that is unchanged, per OP monitoring -Not using home inhalers, nebs (5) GERD (gastroesophageal reflux disease): Continue PPI (6) Osteoporosis: Alendronate weekly on Saturdays PCP: Dr. Olvera ([place]) Dispo: Per primary service Patient seen in collaboration with Dr. Enamorado. Please see addendum. Will be followed by Dr. Campos for remainder of admission. Thank you for this consultation. We will follow the patient with you during their hospital stay. You can reach a [facility] via pager @ [phone]. Supervising Physician Co-Signing Physician Notes Patient is a 69-year-old female with history of hypertension, diabetes, GERD and other problems was seen and examined postop after having left TKA by . Pain at the surgical site is controlled. Denies any chest pain, shortness of breath, abdominal pain, nausea. On exam patient is obese, no apparent distress, normocephalic atraumatic, lungs are clear to auscultation, S1-S2, no murmur, abdomen soft nontender, grossly no focal neurological deficits, left knee in surgical dressing, trace pedal edema.S/P L TKA.. Monitor for postop anemia, bowel regimen to prevent constipation. DVT prophylaxis, activity and wound care as per primary team. Hold p.o. meds for diabetes. Utilize insulin therapy while hospitalized. I personally reviewed the record. Patient is interviewed and examined at bedside. Patient's care is coordinated with Zenaida Moore PA-C. Please refer to the documentation above for details of patient's presentation and for discussion of other issues. History of Present Illness Reason for Consultation: post op med mgmt Attending Physician: Guido Merchant MD History of Present Illness This is a 69yo F with a PMH of DM II, bronchiectasis, pulmonary fibrosis, HTN and GERD who is POD#[address] Merchant. Patient is feeling well postoperatively. Denies any surgical site pain. Has some tingling in bilateral legs but no pain or numbness. Is tolerating dinner well without any nausea or vomiting. Denies any lightheadedness, headache, chest pain, shortness of breath or abdominal pain. Preoperative lab work revealed E. coli UTI and urine culture and patient completed antibiotic course. Denies any dysuria or hematuria now. Follows with Dr. Olvera of [facility]. Allergies Allergy/AdvReac Type Severity Reaction Status Date / Time lisinopril Allergy Mild COUGH Verified 03/12/19 09:40 Cipro Allergy Unknown RASH Verified 02/17/18 05:47 azithromycin AdvReac Mild Nausea and Verified 03/12/19 09:40 Diarrhea cephalexin AdvReac Mild RASH Verified 03/12/19 09:40 ciprofloxacin AdvReac Mild RASH Verified 03/12/19 09:40 Penicillins AdvReac Mild RASH Verified 03/12/19 09:40 Home Medications Home Medications Medication Instructions Recorded Confirmed Type acetaminophen [Tylenol Arthritis 650 mg PO Q12H PRN 02/09/19 03/12/19 History Pain] alendronate 70 mg PO WK 02/09/19 03/12/19 History amlodipine 10 mg PO QAM 02/09/19 03/12/19 History aspirin 81 mg PO QAM 02/09/19 03/12/19 History biotin 5 mg PO QAM 02/09/19 03/12/19 History calcium carbonate-vitamin D3 1 tab PO DAILY 02/09/19 03/12/19 History [Calcium 500 + D] cyclobenzaprine 5 mg PO HS 02/09/19 03/12/19 History glucos sul [id number] 1 cap PO BID 02/09/19 03/12/19 History [Glucosamine Chondroitin] metformin 750 mg PO QAM 02/09/19 03/12/19 History multivitamin 1 cap PO QAM 02/09/19 03/12/19 History omeprazole 40 mg PO QAM 02/09/19 03/12/19 History ranitidine HCl 300 mg PO HS 02/09/19 03/12/19 History gabapentin 300 mg PO BID PRN 02/13/19 03/12/19 History omega 1-obs-pij-fish oil [Fish Oil] 1 cap PO QAM 02/13/19 03/12/19 History tramadol 50 mg PO DAILY PRN 03/12/19 03/12/19 History Patient History Medical History Bronchiectasis (Chronic) Hypertension (Chronic) Diabetes mellitus, type 2 (Chronic) GERD (gastroesophageal reflux disease) (Chronic) Osteoarthritis (Chronic) Hiatal hernia (Chronic) Pulmonary nodule (Chronic) being monitored Surgical History Fusion of spine (Chronic) X2. LUMBAR 11/14/16 - MAC #3, ETT #7.5, Oral, Grade 1 View, Easy Placement, Atraumatic History of appendectomy (Chronic) History of bilateral tubal ligation (Chronic) History of carpal tunnel release (Chronic) LEFT History of laparoscopy (Chronic) EXCISION OF CYST (DONE AT SAME TIME APPE) History of total hip arthroplasty (Chronic) B/L History of total knee replacement (Chronic) LEFT PARTIAL KNEE REPLACEMENT Status post trigger finger release (Chronic) Left 1/12/01, Right 2nd Nausea and vomiting after administration of anesthetic agent (Resolved) Family History Other Diabetes Heart disease Social History Preferred Language: Thai Communication Ability: Effective Expander Required: No Beliefs That Will Affect Care: None Current Living Situation: Spouse Other Information That Helps Us Care for You: No Feels Safe at Home: Yes Safety Concerns: Feels Safe At This Time Smoking Status: Former smoker Tobacco Type: cigarettes Cigarettes Per Day: ~1/2PPD INTERMITTENTLY X 10 YEARS Do You Dip or Chew Tobacco: No Smoking End Date: QUIT ~30 YEARS AGO Second Hand Exposure: No Tobacco Cessation Education Requested by Patient: No Hx Alcohol Use: Yes Alcohol type: beer and other Hx Substance Use: No Review of Systems Review of Systems: At least ten systems reviewed and negative except as noted in the HPI. Physical Exam Physical Exam: General Appearance: WD/WN, no apparent distress, obese, resting comfortably eating dinner Head: normocephalic, atraumatic Eyes: normal inspection, PERRL, EOMI ENT: hearing grossly normal, pharynx normal Neck: supple, no JVD, no adenopathy Respiratory/Chest: lungs clear to auscultation. No wheezes, rales or rhonci. No respiratory distress or accessory muscle use Cardiovascular: regular rate, rhythm, no murmur, normal peripheral pulses Abdomen/GI: normal bowel sounds, soft, non-tender to palpation Extremities/Musculoskelatal: L knee with surgical bandage, drain visualized. No calf tenderness, normal capillary refill, no pedal edema Neurologic/Psych: alert, normal mood/affect, oriented x 3 Skin: normal color, warm/dry Results & Data Vital Signs (Past 12 Hours) Vital Signs Temp Pulse Pulse Pulse Resp BP Pulse Ox 03/12/19 17:11 72 16 135/75 94 03/12/19 16:43 36.3 C L 71 16 126/78 96 03/12/19 16:15 36.5 C 76 16 135/83 96 03/12/19 16:00 73 17 121/67 98 03/12/19 15:50 36.8 C 76 18 146/83 H 95 03/12/19 15:40 79 15 138/80 100 03/12/19 15:33 36.6 C 83 12 100/83 100 03/12/19 09:58 36.9 C 78 20 136/72 94 Laboratory Results Pre-op hgb (02/13/19): 14.6
[2019-03-12] MEDS: INSULIN ASPART 100 UNITS/ML 3 ML PEN SC SCH ×2 (18:22→20:49)
[2019-03-12] MEDS: DOCUSATE SODIUM 100 MG CAP PO SCH (20:46)
[2019-03-12] MEDS: ASPIRIN 81 MG ECTAB PO SCH (20:46)
[2019-03-12] MEDS: SENNA 8.6 MG TAB PO SCH (20:46)
[2019-03-12] MEDS ORDERED: VANCOMYCIN HCL 1,500 MG in SODIUM CHLORIDE 0.9% 500 ML IV ONE (22:00)
[2019-03-12] MEDS: ACETAMINOPHEN 500 MG TAB PO SCH (22:04)
--- NOTE | 2019-03-12 23:10 | Operative Report ---
DATE OF OPERATION: 03/12/2019 DATE OF PROCEDURE: 03/12/2019 INDICATION FOR PROCEDURE: The patient is a 69-year-old female who had a unicompartmental knee replacement of her left knee many years ago. She did well for many years until recently, which had progressive pain and disability with regard to her left knee. Radiographs demonstrate that she has a well-fixed unicompartmental knee replacement with well aligned components. She does have advanced lateral compartment and patellofemoral osteoarthritis with [id number] in the lateral compartment on flexion views. She also has moderately advanced patellofemoral osteoarthritis with patellofemoral osteophytes. There are no signs of infection clinically or with serum blood testing. PREOPERATIVE DIAGNOSES: Painful left knee status post unicompartmental total knee arthroplasty with progressive arthritis in the patellofemoral and lateral compartment, now end-stage osteoarthritis in the lateral compartment. POSTOPERATIVE DIAGNOSES: Painful left knee status post unicompartmental total knee arthroplasty with progressive arthritis in the patellofemoral and lateral compartment, now end-stage osteoarthritis in the lateral compartment. PROCEDURE: Revision of a unicompartmental knee replacement to a left total knee replacement. SURGEON: Guido Merchant MD WHEEL TUNER: Larry Zarate PA-C. ANESTHESIA: Spinal, MAC, regional block and Orthomix. COMPLICATIONS: None. ESTIMATED BLOOD LOSS: 10 mL. SPECIMENS: Implant and frozen section and culture. OPERATIVE PROCEDURE: The patient taken to the operating room, anesthetized under spinal MAC anesthesia and had regional block and had a Xie catheter placed. She was placed supine on the operating room table. A bump was placed on her left hip. A foot roll was placed under foot to flex knee 90 degrees as necessary. Then, her left lower extremity was prepped and draped in sterile fashion. First of all, she had a very obese upper thigh and she had moderate obesity of the knee. She had range of motion 0-90 degrees only and no further flexion at 90 and there was no particular instability and a previous scar in a longitudinal fashion slightly to the medial side across the anterior knee. The patient was identified. Her left lower extremity was prepped and draped in sterile fashion and then the left leg was elevated, exsanguinated with Esmarch bandage. Pneumatic tourniquet was raised to 350 mmHg. The previous incision was lengthened up over proximal to the patella into the distal quad tendon area and slightly distally. Skin was incised sharply, some thickened prepatellar bursa was divided and reflected off of the extensor mechanism, which was intact. Incision was made through medial retinaculum extended up in the mid of the quadriceps tendon and extended down to the medial tibial tubercle. The exposure was performed by performing an electrocautery synovectomy when necessary, some scarred synovium was resected throughout the knee joint and the scarred infrapatellar fat pad was resected protecting the patellar tendon. The patella itself had large osteophytes around the patella. The lateral compartment was grade 4. The unicompartmental knee replacement demonstrated posterior wear on the polyethylene implant which was dished out and worn of the superior surface, but the implant itself was completely solid. There was no loosening. Femoral component was also solid. There was some bony overgrowth over the actual implant itself mainly proximally as there were fairly large femoral condyle osteophytes from the patellofemoral arthritis. The PCL was still intact. There are some remnants of the ACL only. The further exposure required resecting the cruciate ligaments, resecting the osteophytes to expose the edges of the femoral component and osteophytes around the medial tibia to expose the metal components of the unicompartmental tibial component. The attention was first taken to the tibial component and used a rongeur to remove some of the polyethylene to expose the interface between the polyethylene and the metal and then used osteotomes to loosen up the polyethylene from the underlying metal, which we were able to remove uneventfully. Then, I used the Ultra-Drive to dissolve the cement underlying the tibial component and used stacked osteotomes and removed it easily. Cementing the tibia at this time was left alone as we are going to use the oscillating saw to saw down to this level. Then, attention was taken to the femoral component and I did use a rongeur to remove the osteophytes overlapping the femoral component and the femoral cut was very well fixed. This was then removed using the Ultra-Drive device and I used several thin blades under the implant. Then, we tapped this off with a bone tamp with very minimal bone loss at all. At this time, the knee was extended and subperiosteal peel lateral release was performed around the patella. Freehand cut technique was used to reproduce the width and a 35 patella was chosen for the [employer] Legion knee replacement system. Three drill holes were made for the patella and the excess lateral facet was bevelled off to prevent any impingement. Then, attention was taken back to the femur. At this time, the intramedullary drill hole was made into the femoral canal. The distal femoral cutting block was placed with a +2 resection on distal femoral cut in addition to the standard resection. This I was able to get this below the level of the prior implant. So I had a good cut in the distal bone using 6 degree valgus angle. We went ahead and placed a sizing block and femur was sized for size 5, which was also the templated size preoperatively and I adjusted the guide to match the epicondylar axis, drilled our holes, placed the 4-in-[address], made the anterior, posterior and chamfer cuts. Attention was taken to the tibia cut which we used an external tibial cutting guide to match the slope of the prior implant and make a perpendicular cut to long axis of the tibia and the scope was made right at the level of the prior implant to minimize bone resection of the lateral tibia. The cut was made in the proximal tibia and removed any remaining cement from the slot from the implant. Previously, we did take there was a small amount of membrane underneath the femoral condylar component but under the tibial component, there was no membrane at all and so we could not take any frozen section from there, so we did send off the frozen sections, which demonstrated 0 white blood cells per high power field. We also obtained a culture before doing any irrigation right at the opening of the medial retinaculum. These all came back negative. Then, we went ahead and assessed the extension and flexion gaps. We had to do some releases around the lateral tibial plateau at the lateral capsule and some of the IT band area to balance our gaps, and then went ahead and re-exposed the tibia, placed the 3 trial tibial component from the Gliph system, externally rotated it in-line with the tibial tubercle, pinned in position, and the drill and punch were used for the stem and then we went ahead and placed on the 5 femoral trial, centered it appropriately and then used the notch cutting devices to make the notch, placed the collet in place and then tried various trial implants and the 18 high flex implant gave balanced ligaments through full range of motion and better range of motion at her preoperative status with flexion to at least 125 degrees. The patella tracked slightly laterally, so we did do a formal lateral release leaving the synovium intact. The patella tracked centrally. At this time, the trials were removed and the knee was copiously irrigated with pulsatile lavage antibiotic solution with bacitracin. We did inject the Orthomix injection per protocol prior to the irrigation. Then, the final components were cemented, which was a Legion size 5 femur, the 3 primary tibial baseplate, the 18 high flex polyethylene insert and the 35 patella. While cement was curing, we used a Betadine soak per protocol. Then, the knee was again copiously irrigated when the cement had cured. The tourniquet was let down after the cement cured. Then, the 2 Hemovac drains were brought out laterally. These were connected to Hemovac. Then, the quadriceps tendon and medial retinaculum were repaired with [id number] #1 Vicryl sutures. Then, the knee was taken through range of motion and repair was secure. The subcutaneous tissue was closed with 2-0 Vicryl and skin was closed with jaden and the Silverlon dressing applied. JENNIFER Hernández was my first aid nurse and functioned as first aid nurse for the entire procedure. He assisted in patient positioning, prepping, draping, soft tissue retraction, and assisted in the fascial and subcutaneous and skin closure and will participate in the postoperative care of the patient. I attest to the content of the Intraoperative Record and any orders documented therein. Any exceptions are noted below. CATRACHITA
[2019-03-13 05:46] LABS: Hemoglobin 11.5 g/dL (12.0-16.0); Mean Corpuscular Hgb Conc 33.8 g/dL (32-36); Mean Corpuscular Volume 94.7 fL (80-100); Mean Platelet Volume 10.7 fL (7.4-10.4); Platelet Count 169 K/uL (130-400); RDW Standard Deviation 44.9 fL (36.4-46.3); Red Blood Count 3.59 M/uL (4.2-5.4); White Blood Count 6.19 K/uL (4.8-10.8)
[2019-03-13] MEDS: ACETAMINOPHEN 500 MG TAB PO SCH ×3 (05:52→21:37)
[2019-03-13 06:17] LABS: Estimated Average Glucose 143 mg/dl; Hemoglobin A1C 6.6 % (4.5-5.6)
[2019-03-13 06:18] LABS: BUN Creatinine Ratio 14.3 (10-20); Creatinine Clr Calc Pharmacy 67.6 ml/min; Est GFR (African American) 87.9; Est GFR (Non-African American) 75.8; Potassium 3.6 mmol/L (3.5-5.1)
[2019-03-13] MEDS: SODIUM CHLORIDE 0.9% 1000ML 1,000 ML IV SCH (07:08)
--- NOTE | 2019-03-13 07:35 | Orthopedic Progress Note ---
Date of Service March 13, 2019 Assessment & Plan (1) Status post left knee replacement: POD #1, Left knee conversion uni arthroplasty to TKA. PT/ OT DVT proph- ASA D/C planning- [place] per medicine. Subjective POD #1, Doing well, denies SOB, CP, N/V. Pain controlled well. Physical Exam Physical Exam: Left knee dressings/ drain c/d/i. NO calf tenderness. Toes and ankle mobile. A&Ox3 Results & Data Vital Signs (Past 12 Hours) Vital Signs Temp Pulse Resp BP Pulse Ox 03/13/19 04:00 36.9 C 73 16 113/66 92 03/12/19 23:08 37.0 C 67 16 118/73 92
[2019-03-13] MEDS: OXYCODONE HCL IR 5 MG TAB (IMMEDIATE RELEASE) PO PRN ×4 (07:42→21:36)
[2019-03-13] MEDS: FERROUS GLUCONATE 324 MG TAB PO SCH ×2 (07:44→18:09)
[2019-03-13] MEDS: AMLODIPINE BESYLATE 5 MG TAB PO SCH (07:44)
[2019-03-13] MEDS: CALCIUM 600MG + VIT D 400 IU TAB PO SCH (07:46)
[2019-03-13] MEDS: DOCUSATE SODIUM 100 MG CAP PO SCH ×2 (07:46→21:37)
[2019-03-13] MEDS: PANTOprazole 40 MG TAB PO SCH (07:46)
[2019-03-13] MEDS: MULTIVITAMIN TAB PO SCH (07:46)
[2019-03-13] MEDS: ASPIRIN 81 MG ECTAB PO SCH ×2 (07:47→21:37)
[2019-03-13] MEDS: INSULIN ASPART 100 UNITS/ML 3 ML PEN SC SCH ×4 (08:59→21:41)
[2019-03-13] MEDS ORDERED: METFORMIN 750 MG PO SCH (09:00)
--- NOTE | 2019-03-13 10:12 | Hospitalist Progress Note ---
Date of Service March 13, 2019 Assessment & Plan (1) Status post left knee replacement: - POD#1, status post unicompartmental left knee replacement converted to TKA by Dr. Merchant - activity and wound care orders as per ortho - pain control with bowel regimen - PT/OT - monitor H/H for acute blood loss anemia and transfuse blood products PRN - EBL 10 cc, drain output 140 cc to date - Hgb 14.6 - > 11.5 (2) Hypertension: -BP controlled, continue amlodipine (3) Diabetes mellitus, type 2: -Hgb A1c 6.6 -Blood sugars controlled -Hold oral agents and utilize SSI while hospitalized (4) Bronchiectasis: -stable, follows with Dr. Ivan kwong in [place] -No signs of acute exacerbation, continue home inhalers (5) GERD (gastroesophageal reflux disease): -continue PPI (6) Osteoporosis: -Alendronate weekly on Saturdays (7) DVT prophylaxis: -Aspirin 81 mg twice daily as per orthopedics Supervising Physician Co-Signing Physician Notes Attending addendum Patient was seen and examined in medical floor She is a status post left total knee arthroplasty POD #1 She has some pain in the left knee but denies any other symptoms On examination No apparent distress at rest Sitting in a chair outside bed Chest-clear to auscultate bilaterally Heart-S1-S2 regular Abdomen-benign Extremities-trace edema on the left Labs and imaging studies noted Her chronic medical condition like hypertension, diabetes, bronchiectasis, GERD remains stable Agree with assessment and plan as outlined above by Renae Campos Subjective Patient seen and examined. Sitting up in the chair, just finished with therapy. Reports some left knee pain after therapy. Denies chest pain shortness of breath No BM however passing flatus. Physical Exam Constitutional: WD/WN, vitals as above no acute distress Respiratory: normal respiratory effort, lungs clear to auscultation Cardiovascular: Rate/Rhythm: regular rate and regular rhythm Vessels: normal peripheral pulses Extremities: no edema Gastrointestinal (Abdomen): Inspection/Auscultation: normal bowel sounds Percussion/Palpation: abdomen soft; abdomen nontender Musculoskeletal: S/P left knee surgery, surgical dressing dry and intact, drain in place draining bloody drainage, CSM checks intact to left lower extremity Psychiatric: Orientation: alert and oriented x 3 Results & Data Vital Signs (Past 12 Hours) Vital Signs Temp Pulse Resp BP Pulse Ox 03/13/19 08:00 37 C 73 16 120/72 91 03/13/19 04:00 36.9 C 73 16 113/66 92 03/12/19 23:08 37.0 C 67 16 118/73 92 Laboratory Results Short CBC 03/13/19 Range/Units 05:14 WBC 6.19 (4.8-10.8) K/uL Hgb 11.5 L (12.0-16.0) g/dL Hct 34.0 L (37-47) % Plt Count 169 (130-400) K/uL BMP 03/13/19 05:14 Sodium 141 Potassium 3.6 Chloride 110 H Carbon Dioxide 23 BUN 11 Creatinine 0.79 Glucose 109 H Calcium 8.0 L
--- NOTE | 2019-03-13 14:55 | Pharmacy Report ---
Pharmacy Glycemic Short Note 2 - Date of Service March 13, 2019 - Glycemic Short BSG Results (Last 24 hours): 03/12/19 03/12/19 03/12/19 15:37 16:34 20:41 Glucose POC Glucose 108 H 131 H 147 H 03/13/19 03/13/19 03/13/19 05:14 08:27 12:24 Glucose 109 H POC Glucose 121 H 172 H OUTPATIENT ANTIDIABETIC REGIMEN: * Metformin 750mg qAM * HbA1c = 6.6% (03/13/19) ASSESSMENT: * 69 y/o M admitted s/p L TKA last night. He was initiated on weight-based Novolog with stress of 2 * No steroids ordered pre- or post-op * BG ranged 108-147 past 24 hours. * He received dinner and HS Novolog doses last night 2 hours apart, therefore some potential stacking this AM. * Pre-lunch BG was elevated at 172 secondary to Novolog loosened too much at breakfast (fasting BG was 109) - tighten slightly again for dinner, but still loosened overall to prevent hypoglycemia. PLAN FOR INPATIENT GLYCEMIC CONTROL: * Hold outpatient oral diabetes medications * Consider restarting metformin 48 hours post-op * Basal insulin * Not indicated at this time * Bolus insulin * NovoLog per scale ACHS or Q6hrs while NPO * Goal Range: Low 110 mg/dL - High 140 mg/dL * Correction Factor: 30 mg/dL/unit * Nutritional / Prandial insulin per carb ratio of 1 unit per 10 grams CHO consumed PLAN FOR DISCHARGE: * Diabetes well controlled as outpatient based on HbA1c of 6.6%. He should resume metformin as previously taken.
[2019-03-13] MEDS: SENNA 8.6 MG TAB PO SCH (21:37)
[2019-03-14] MEDS: OXYCODONE HCL IR 5 MG TAB (IMMEDIATE RELEASE) PO PRN ×6 (02:30→23:26)
[2019-03-14] MEDS: ACETAMINOPHEN 500 MG TAB PO SCH ×3 (06:11→21:41)
[2019-03-14 06:32] LABS: Hematocrit (blood only) 34.9 % (37-47); Hemoglobin 12.3 g/dL (12.0-16.0); Mean Corpuscular Hgb Conc 35.2 g/dL (32-36); Mean Corpuscular Volume 94.8 fL (80-100); Mean Platelet Volume 10.8 fL (7.4-10.4); Platelet Count 189 K/uL (130-400); RDW Coefficient of Variation 13.2 % (11.5-14.5); RDW Standard Deviation 45.9 fL (36.4-46.3); Red Blood Count 3.68 M/uL (4.2-5.4); White Blood Count 5.63 K/uL (4.8-10.8)
[2019-03-14 07:01] LABS: Calcium 8.7 mg/dl (8.5-10.1); Creatinine Clr Calc Pharmacy 58.7 ml/min; Est GFR (African American) 74.1; Est GFR (Non-African American) 63.9; Potassium 3.6 mmol/L (3.5-5.1)
--- NOTE | 2019-03-14 07:56 | Orthopedic Progress Note ---
Date of Service March 14, 2019 Assessment & Plan (1) Status post left knee replacement: POD #2, Left knee conversion uni arthroplasty to TKA. PT/ OT DVT proph- ASA D/C planning- [place] Saturday. per medicine. Subjective POD #2, doing well. Denies SOB, CP, N/V, pain controlled well. Physical Exam Physical Exam: Left knee silverlon dressing c/d/i. No erythema, toes and ankle mobile. No calf tenderness. A&Ox3. Results & Data Vital Signs (Past 12 Hours) Vital Signs Temp Pulse Resp BP Pulse Ox 03/14/19 07:05 37.2 C 76 16 129/72 93 03/13/19 23:21 37.1 C 74 18 146/75 H 93
[2019-03-14] MEDS: INSULIN ASPART 100 UNITS/ML 3 ML PEN SC SCH ×4 (08:00→21:37)
[2019-03-14] MEDS: CALCIUM 600MG + VIT D 400 IU TAB PO SCH (08:02)
[2019-03-14] MEDS: MULTIVITAMIN TAB PO SCH (08:02)
[2019-03-14] MEDS: FERROUS GLUCONATE 324 MG TAB PO SCH ×2 (08:02→17:06)
[2019-03-14] MEDS: AMLODIPINE BESYLATE 5 MG TAB PO SCH (08:02)
[2019-03-14] MEDS: ASPIRIN 81 MG ECTAB PO SCH ×2 (08:02→20:45)
[2019-03-14] MEDS: DOCUSATE SODIUM 100 MG CAP PO SCH ×2 (08:02→20:45)
[2019-03-14] MEDS: PANTOprazole 40 MG TAB PO SCH (08:02)
[2019-03-14] MEDS ORDERED: LANTUS PER UNIT CHARGE SQ SCH (09:00)
--- NOTE | 2019-03-14 11:37 | Pharmacy Report ---
Glycemic Control Progress Note - Date of Service March 14, 2019 - Scope Glycemic Pharmacist consulted for glycemic control to write orders per [facility] inpatient glycemic control protocol. - Objective Accuchecks BSG(last 24 hours):: 03/13/19 03/13/19 03/13/19 12:24 17:50 20:44 Glucose POC Glucose 172 H 145 H 150 H 03/14/19 03/14/19 05:58 06:33 Glucose 159 H POC Glucose 177 H HbA1c:: Hemoglobin A1c 6.6 % (4.5-5.6) H 03/13/19 05:14 - Recent Pertinent Medications The patient is currently receiving: * Basal insulin: Lantus -- units every -- hours * Correctional Insulin: Novolog Correction per scale ACHS Goal Range: Low 110 mg/dL - High 140 mg/dL Correction Factor: 25 mg/dL/unit * Prandial insulin: Per carb ratio of 1 unit per 8 grams CHO consumed - Outpatient Anti-Diabetic Meds metformin 750 mg daily - Assessment & Plan ASSESSMENT: * See progress note from 03/13/19 for more background info, in short: * Pt receiving SQ basal bolus insulin regimen for hyperglycemia secondary to baseline DM (outpatient regimen on hold) and POD 2 for L TKA * Patient is currently receiving an average of 14 units of insulin per day * - units of basal insulin * 14 units of prandial/correctional insulin * BSGs ranging 121 - 172 mg/dl over the past 24hrs * Changes needed to insulin regimen: * AM Fasting BSG = 177 mg/dl. This is slightly above goal range for patient based on inpatient targets and co-morbidities. Will give one time dose of 15 units or 0.2 units/kg since patient close to 180 mg/dL. * Post-prandial BSGs were slightly elevated yesterday. Tighten to weight- based stress of 2 * Total daily dose = <20 units. * Additional notes / comments: patient's kidney function okay + adequate oral intake so will restart metformin tomorrow morning. PLAN FOR INPATIENT GLYCEMIC CONTROL: * Lantus 15 units SQ x 1 * TIGHTENING correction factor to 25 mg/dl/unit * TIGHTENING carb ratio to 1 unit per 8 grams CHO consumed * Continuing goal range to Low 110 mg/dL - High 140 mg/dL RECOMMENDATIONS FOR DISCHARGE: * Patient's HbA1C is well controlled. Recommend titrating metformin to maximally tolerated dose (recommended max is 1000 mg PO BID) * Please note that the plan above was derived based on current level of insulin resistance and hospital stress. These recommendations are appropriate for inpatient admission only. Plan of care upon discharge will need to be reassessed to avoid potential outpatient hypo/hyperglycemia. Thank you.
--- NOTE | 2019-03-14 14:04 | Hospitalist Progress Note ---
Date of Service March 14, 2019 Assessment & Plan (1) Status post left knee replacement: - POD#2, status post unicompartmental left knee replacement converted to TKA by Dr. Merchant - activity and wound care orders as per ortho - pain control with bowel regimen - PT/OT -Hemoglobin remains stable and electrolytes are normal (2) Hypertension: -BP controlled, continue amlodipine (3) Diabetes mellitus, type 2: -Hgb A1c 6.6 -Blood sugars controlled -Hold oral agents and utilize SSI while hospitalized (4) Bronchiectasis: -stable, follows with Dr. Ivan kwong in [place] -No signs of acute exacerbation, continue home inhalers -No acute symptoms of shortness of breath, cough and her complaint (5) GERD (gastroesophageal reflux disease): -continue PPI (6) Osteoporosis: -Alendronate weekly on Saturdays (7) DVT prophylaxis: -Aspirin 81 mg twice daily as per orthopedics Medically stable Subjective 03/14 Patient was seen and examined in medical floor She is status post left knee replacement on 03/12 Complains some pain at the knee joint but denies any other symptoms Review of Systems Review of Systems: All systems reviewed and are unremarkable except as noted below Musculoskeletal: Pain and swelling of the left knee joint Physical Exam Physical Exam: No apparent distress at rest Constitutional: WD/WN, vitals as above + morbidly obese; no acute distress Eyes: PERRL, conjunctivae normal, anicteric sclerae ENMT: external ear and nose normal, oropharynx normal Mouth: + dentures (Upper and lower dentures); no TMJ abnormality and no TMJ clicking Mallampati Class: II Neck: trachea midline, no thyromegaly + thick neck; neck extension not zuñiga ited Respiratory: normal respiratory effort Auscultation: lungs clear to auscultation bilaterally Cardiovascular: Rate/Rhythm: regular rate and regular rhythm Vessels: normal peripheral pulses Extremities: no edema Gastrointestinal (Abdomen): Inspection/Auscultation: normal bowel sounds Percussion/Palpation: abdomen soft; abdomen nontender Musculoskeletal: Spine: normal cervical ROM and no pain with cervical ROM Swelling and pain of left knee Neurologic: moves all extremities Psychiatric: Orientation: alert and oriented x 3 Lymphatic: no cervical or axillary lymphadenopathy Results & Data Vital Signs (Past 12 Hours) Vital Signs Temp Pulse Resp BP Pulse Ox 03/14/19 07:05 37.2 C 76 16 129/72 93 Laboratory Results Short CBC 03/14/19 Range/Units 05:58 WBC 5.63 (4.8-10.8) K/uL Hgb 12.3 (12.0-16.0) g/dL Hct 34.9 L (37-47) % Plt Count 189 (130-400) K/uL BMP 03/14/19 05:58 Sodium 139 Potassium 3.6 Chloride 109 H Carbon Dioxide 21 BUN 10 Creatinine 0.91 Glucose 159 H Calcium 8.7 Medications Administered Current Inpatient Medications Acetaminophen (Tylenol) 1,000 mg PO Q8 [facility] Stop: 04/11/19 21:59 Last Admin: 03/14/19 13:23 Dose: 1,000 mg Documented by: Amlodipine Besylate (Norvasc) 10 mg PO QAM [facility] Stop: 04/12/19 08:59 Last Admin: 03/14/19 08:02 Dose: 10 mg Documented by: Aspirin (Ecotrin Ectab) 81 mg PO BID [facility] Stop: 04/11/19 20:59 Last Admin: 03/14/19 08:02 Dose: 81 mg Documented by: Bisacodyl (Dulcolax) 10 mg [place] DAILY PRN PRN Reason: Constipation Stop: 04/11/19 16:38 Docusate Sodium (Colace) 100 mg PO BID [facility] Stop: 04/11/19 20:59 Last Admin: 03/14/19 08:02 Dose: 100 mg Documented by: Ferrous Gluconate (Ferrous Gluconate) 324 mg PO BIDM [facility] Stop: 04/11/19 16:59 Last Admin: 03/14/19 08:02 Dose: 324 mg Documented by: Gabapentin (Neurontin) 300 mg PO BID PRN PRN Reason: Pain Stop: 04/11/19 16:38 Hydromorphone HCl (Dilaudid) 0.5 mg IV Q4H PRN PRN Reason: Pain Stop: 03/26/19 16:38 Insulin Aspart (Novolog Flexpen) 0 units SC [facility]; Protocol Stop: 04/11/19 17:29 Last Admin: 03/14/19 13:22 Dose: 2 units Documented by: Magnesium Hydroxide (Milk Of Magnesia) 30 ml PO Q6H PRN PRN Reason: Constipation Stop: 04/11/19 16:38 Metformin HCl (Glucophage) 750 mg PO DAILY [facility] Stop: 04/14/19 08:59 Miscellaneous Information (Consult Glycemic Management Pharmacy) 1 ea N/A UD PRN PRN Reason: Consult Stop: 04/11/19 16:51 Multivitamins (Multivitamin Tab) 1 tab PO QAM [facility] Stop: 04/12/19 08:59 Last Admin: 03/14/19 08:02 Dose: 1 tab Documented by: Multivitamins/Minerals (Caltrate Plus) 1 tab PO DAILY [facility] Stop: 04/12/19 08:59 Last Admin: 03/14/19 08:02 Dose: 1 tab Documented by: Naloxone HCl (Narcan) 0.1 mg IV Q5M PRN PRN Reason: Oversedation/Resp Depression Stop: 04/11/19 16:38 Ondansetron HCl (Zofran) 4 mg IV Q6H PRN PRN Reason: Nausea And Vomiting Stop: 04/11/19 16:38 Oxycodone HCl (Roxicodone Immediate Rel) 5 - 10 mg PO Q4H PRN PRN Reason: Pain Stop: 03/26/19 16:38 Last Admin: 03/14/19 11:49 Dose: 10 mg Documented by: Pantoprazole Sodium (Protonix) 40 mg PO QAM [facility] Stop: 04/12/19 08:59 Last Admin: 03/14/19 08:02 Dose: 40 mg Documented by: Ranitidine HCl (Zantac) 300 mg PO [facility] Stop: 04/11/19 20:59 Last Admin: 03/13/19 21:37 Dose: 300 mg Documented by: Sennosides (Senokot) 17.2 mg PO [facility] Stop: 04/11/19 20:59 Last Admin: 03/13/19 21:37 Dose: 17.2 mg Documented by:
[2019-03-14] MEDS: SENNA 8.6 MG TAB PO SCH (20:45)
[2019-03-15] MEDS: OXYCODONE HCL IR 5 MG TAB (IMMEDIATE RELEASE) PO PRN ×3 (04:06→12:50)
[2019-03-15] MEDS: ACETAMINOPHEN 500 MG TAB PO SCH (05:33)
[2019-03-15] MEDS: INSULIN ASPART 100 UNITS/ML 3 ML PEN SC SCH (08:06)
[2019-03-15] MEDS: DOCUSATE SODIUM 100 MG CAP PO SCH (08:08)
[2019-03-15] MEDS: MULTIVITAMIN TAB PO SCH (08:08)
[2019-03-15] MEDS: PANTOprazole 40 MG TAB PO SCH (08:08)
[2019-03-15] MEDS: AMLODIPINE BESYLATE 5 MG TAB PO SCH (08:09)
[2019-03-15] MEDS: FERROUS GLUCONATE 324 MG TAB PO SCH (08:09)
[2019-03-15] MEDS: CALCIUM 600MG + VIT D 400 IU TAB PO SCH (08:09)
[2019-03-15] MEDS: ASPIRIN 81 MG ECTAB PO SCH (08:09)
--- NOTE | 2019-03-15 08:34 | Orthopedic Progress Note ---
Date of Service March 15, 2019 Assessment & Plan (1) Status post left knee replacement: POD #3, Left knee conversion uni arthroplasty to TKA. PT/ OT DVT proph- ASA D/C planning- [place] Today. per medicine. Subjective POD #3, doing well. Denies SOB, CP, N/V, pain controlled well. Physical Exam Physical Exam: Sitting comfortably at bedside with breakfast. Left knee silverlon c/d/i, no drainage, no erythema. Toes and ankle mobile. No calf tenderness. A&Ox3. Results & Data Vital Signs (Past 12 Hours) Vital Signs Temp Pulse Resp BP Pulse Ox 03/14/ 23:35 37.1 C 84 18 147/77 H 93
[2019-03-15] MEDS ORDERED: METFORMIN HCL 500 MG TAB PO SCH (09:00)
--- NOTE | 2019-03-15 13:08 | Hospitalist Progress Note ---
Date of Service March 15, 2019 Assessment & Plan (1) Status post left knee replacement: - POD#3, status post unicompartmental left knee replacement converted to TKA by Dr. Merchant - activity and wound care orders as per ortho - pain control with bowel regimen - PT/OT-recommended short-term rehab -Hemoglobin remains stable and electrolytes are normal -Likely be discharged today (2) Hypertension: -BP controlled, continue amlodipine -No acute issues (3) Diabetes mellitus, type 2: -Hgb A1c 6.6 -Blood sugars controlled -Hold oral agents and utilize SSI while hospitalized -Blood sugar remains stable (4) Bronchiectasis: -stable, follows with Dr. Ivan kwong in [place] -No signs of acute exacerbation, continue home inhalers -No acute symptoms of shortness of breath, cough and her complaint (5) GERD (gastroesophageal reflux disease): -continue PPI (6) Osteoporosis: -Alendronate weekly on Saturdays (7) DVT prophylaxis: -Aspirin 81 mg twice daily as per orthopedics Medically stable to be discharged today Subjective 03/14 Patient was seen and examined in medical floor She is status post left knee replacement on 03/12 Complains some pain at the knee joint but denies any other symptoms 03/15 Patient was seen and examined the medical floor Still has some pain in the left knee otherwise denies any other symptoms Medically stable to be discharged Review of Systems Review of Systems: All systems reviewed and are unremarkable except as noted below Musculoskeletal: Pain and swelling of the left knee joint Physical Exam Physical Exam: No apparent distress at rest Constitutional: WD/WN, vitals as above + morbidly obese; no acute distress Eyes: PERRL, conjunctivae normal, anicteric sclerae ENMT: external ear and nose normal, oropharynx normal Mouth: + dentures (Upper and lower dentures); no TMJ abnormality and no TMJ clicking Mallampati Class: II Neck: trachea midline, no thyromegaly + thick neck; neck extension not limited Respiratory: normal respiratory effort Auscultation: lungs clear to auscultation bilaterally Cardiovascular: Rate/Rhythm: regular rate and regular rhythm Vessels: normal peripheral pulses Extremities: no edema Gastrointestinal (Abdomen): Inspection/Auscultation: normal bowel sounds Percussion/Palpation: abdomen soft; abdomen nontender Musculoskeletal: Spine: normal cervical ROM and no pain with cervical ROM Neurologic: moves all extremities Psychiatric: Orientation: alert and oriented x 3 Lymphatic: no cervical or axillary lymphadenopathy Results & Data Vital Signs (Past 12 Hours) Vital Signs Temp Pulse Pulse Resp BP Pulse Ox 03/15/19 10:25 37.1 C 71 84 18 147/77 H 93 Medications Administered Current Inpatient Medications Acetaminophen (Tylenol) 1,000 mg PO Q8 [facility] Stop: 04/11/19 21:59 Last Admin: 03/15/19 05:33 Dose: 1,000 mg Documented by: Amlodipine Besylate (Norvasc) 10 mg PO QAM [facility] Stop: 04/12/19 08:59 Last Admin: 03/15/19 08:09 Dose: 10 mg Documented by: Aspirin (Ecotrin Ectab) 81 mg PO BID [facility] Stop: 04/11/19 20:59 Last Admin: 03/15/19 08:09 Dose: 81 mg Documented by: Bisacodyl (Dulcolax) 10 mg [place] DAILY PRN PRN Reason: Constipation Stop: 04/11/19 16:38 Docusate Sodium (Colace) 100 mg PO BID [facility] Stop: 04/11/19 20:59 Last Admin: 03/15/19 08:08 Dose: 100 mg Documented by: Ferrous Gluconate (Ferrous Gluconate) 324 mg PO BIDM [facility] Stop: 04/11/19 16:59 Last Admin: 03/15/19 08:09 Dose: 324 mg Documented by: Gabapentin (Neurontin) 300 mg PO BID PRN PRN Reason: Pain Stop: 04/11/19 16:38 Hydromorphone HCl (Dilaudid) 0.5 mg IV Q4H PRN PRN Reason: Pain Stop: 03/26/19 16:38 Insulin Aspart (Novolog Flexpen) 0 units SC [facility]; Protocol Stop: 04/11/19 17:29 Last Admin: 03/15/19 08:06 Dose: 5 units Documented by: Magnesium Hydroxide (Milk Of Magnesia) 30 ml PO Q6H PRN PRN Reason: Constipation Stop: 04/11/19 16:38 Last Admin: 03/14/19 17:06 Dose: 30 ml Documented by: Metformin HCl (Glucophage) 750 mg PO DAILY [facility] Stop: 04/14/19 08:59 Last Admin: 03/15/19 08:08 Dose: 750 mg Documented by: Miscellaneous Information (Consult Glycemic Management Pharmacy) 1 ea N/A UD PRN PRN Reason: Consult Stop: 04/11/19 16:51 [facility]ivitamins ([facility]ivitamin Tab) [facility] [place]: 04/12/19 08:59 Last Admin: 03/15/19 08:08 Dose: 1 tab Documented by: Multivitamins/Minerals (Caltrate Plus) 1 tab PO DAILY [facility] Stop: 04/12/19 08:59 Last Admin: 03/15/19 08:09 Dose: 1 tab Documented by: Naloxone HCl (Narcan) 0.1 mg IV Q5M PRN PRN Reason: Oversedation/Resp Depression Stop: 04/11/19 16:38 Ondansetron HCl (Zofran) 4 mg IV Q6H PRN PRN Reason: Nausea And Vomiting Stop: 04/11/19 16:38 Oxycodone HCl (Roxicodone Immediate Rel) 5 - 10 mg PO Q4H PRN PRN Reason: Pain Stop: 03/26/19 16:38 Last Admin: 03/15/19 12:50 Dose: 10 mg Documented by: Pantoprazole Sodium (Protonix) [facility] [place]: 04/12/19 08:59 Last Admin: 03/15/19 08:08 Dose: 40 mg Documented by: Ranitidine HCl (Zantac) 300 mg PO [facility] Stop: 04/11/19 20:59 Last Admin: 03/14/19 20:46 Dose: 300 mg Documented by: Sennosides (Senokot) 17.2 mg PO [facility] Stop: 04/11/19 20:59 Last Admin: 03/14/19 20:45 Dose: 17.2 mg Documented by:
[2019-03-15] MEDS ORDERED: GLUCOSE 40% GEL 15 GM TUBE PO PRN (15:15)
[2019-03-15] MEDS ORDERED: GLUCAGON FOR INJ 1 MG VIAL IM PRN (15:15)
[2019-03-15] MEDS ORDERED: CARBOHYDRATES FOR HYPOGLYCEMIA PO PRN (15:15)
[2019-03-15] MEDS ORDERED: DEXTROSE 50% 50 ML SYRINGE IV PRN (15:15)
[2019-03-15] MEDS ORDERED: GLUCOSE 10 TABS/TUBE PO PRN (15:15)
--- NOTE | 2019-03-27 02:12 | Discharge Summary ---
HISTORY OF PRESENT ILLNESS: This is a 69-year-old female patient of Dr. Merchant's complaining of chronic left knee pain, longstanding, progressively getting worse. The patient had unicompartmental knee replacement in 2004. Since then, she has had chronic pain and failed conservative treatment including steroid, use of anti-inflammatories and a cane. She now wishes to proceed with a left revision unicompartmental knee replacement to a total knee replacement. PAST MEDICAL HISTORY: Hypertension, diabetes mellitus, osteoarthritis, spine problems, sciatica, acid reflux, hiatal hernia and obesity. POSTOPERATIVE COURSE: The patient underwent a left knee unicompartmental knee replacement to a conversion of a total knee arthroplasty on 03/12/2019. She was followed closely with medical consultation, deep venous thrombosis prophylaxis in the form of aspirin, physical therapy and pain control. The patient did very well postoperatively and was [facility] postoperative day [facility]. PHYSICAL EXAMINATION: EXTREMITIES: On discharge, left knee Silverlon dressing was clean, dry and intact. There was no redness or drainage. She had no calf tenderness. Negative Homans sign. Toes and ankles were mobile. Neurologically and neurovascularly she is intact in her left lower extremity. DIAGNOSES: Left knee conversion unicompartmental arthroplasty to total knee arthroplasty. She has a history of hypertension, diabetes mellitus, osteoarthritis, spine problems, sciatica, acid reflux, hiatal hernia and obesity. PLAN: The patient was discharged to [facility] on postoperative day #3. She will continue her preadmission medications with the addition of pain medications and the continuation of aspirin twice daily for deep venous thrombosis prophylaxis. The patient will follow up with Dr. Merchant as scheduled as an outpatient.
== END 2019-03-15 15:00 | DRG 470 ==
LOC: ASU 08:48 → 3E 14:38